=== PATIENT | male | born 1955 | race Caucasian/White ===

== ENCOUNTER → 2020-01-11 10:18 | Outpatient (BNVA) | payer MEDICAID, SELFPAY | PROVIDERS: Visit Provider Family Medicine | DX: I48.91 Unspecified atrial fibrillation (principal); F31.9 Bipolar disorder, unspecified; F31.62 Bipolar disorder, current episode mixed, moderate; I10 Essential (primary) hypertension; K21.9 Gastro-esophageal reflux disease without esophagitis | CPT/HCPCS: 80053; 80061; 80178; 83721; 85025 ==

== ENCOUNTER → 2020-04-21 11:00 | Outpatient (BNVA) | payer MEDICAID, SELFPAY | PROVIDERS: Visit Provider Family Medicine | DX: F31.9 Bipolar disorder, unspecified (principal); I48.91 Unspecified atrial fibrillation; I25.10 Atherosclerotic heart disease of native coronary artery without angina pectoris; E78.5 Hyperlipidemia, unspecified; I10 Essential (primary) hypertension; K21.9 Gastro-esophageal reflux disease without esophagitis | CPT/HCPCS: 80053; 80061; 80164; 80178 ==

== ENCOUNTER → 2020-08-13 11:00 | Outpatient (BNVA) | payer MEDICARE, MEDICAID, SELFPAY | PROVIDERS: Visit Provider Family Medicine | DX: F31.9 Bipolar disorder, unspecified (principal); I48.91 Unspecified atrial fibrillation; E78.2 Mixed hyperlipidemia; I10 Essential (primary) hypertension; Z23 Encounter for immunization | CPT/HCPCS: 80053; 80061; 83721; 85025 ==

== ENCOUNTER → 2020-10-14 11:36 | Outpatient (BNVA) | payer SELFPAY | PROVIDERS: Visit Provider Family Medicine | DX: F31.9 Bipolar disorder, unspecified (principal); I48.91 Unspecified atrial fibrillation | CPT/HCPCS: 80164; 80178 ==

== ENCOUNTER 2020-11-24 11:30 | Inpatient (IN) | payer MEDICARE, MEDICAID, SELFPAY ==
[2020-11-24] VITALS (27 sets, daily range): BP systolic 150–211; BP diastolic 88–152; PULSE 63–108; RESP 11–23; TEMP 36.5–36.6; O2SAT 95–99; BMI 26.6
--- NOTE | 2020-11-24 11:48 | CT_ITS ---
WS: [id number] CT HEAD NONCONTRAST HISTORY: Symptoms of Acute Stroke TECHNIQUE: Contiguous axial imaging performed through the brain in 2.5 mm imaging. Bone and soft tiss ue windows. Sagittal and coronal reformats reviewed. All CT scans at [facility] use at le ast one of these dose optimization techniques: automated exposure control; mA and/or kV adjustment pe r patient size (includes targeted exams where dose is matched to clinical indication); or iterative r econstruction. DLP: 862.82 mGy.cm COMPARISON: 04/27/2019 No acute intracranial hemorrhage, midline shift or mass effect. Area of decreased attenuation centered in the LEFT caudate head and along the anterior LEFT internal capsule. Additional low-attenuation in the periventricular white matter from chronic ischemic disease . Ventricles: Normal size with no hydrocephalus. Paranasal sinuses: As visualized are clear. Mastoid air cells: Well pneumatized. Calvarium and scalp: Skull is intact with no soft tissue edema or swelling. Increased soft tissue RIGHT external auditory canal. CT/CT head wo con* [id number] IMPRESSION: 1. No acute intracranial hemorrhage or edema. 2. 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 3. Mild chronic microvascular ischemic disease. Notified Onel Scott MD at 11/24/2020 12:14 PM.
--- NOTE | 2020-11-24 11:48 | ECG_ITS ---
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 Measurements Intervals [place] Rate: 58 P: [place]: QRS: 101 QRSD: 88 T: 26 QT: 422 QTc: 417 Interpretive Statements ATRIAL FIBRILLATION WITH SLOW VENTRICULAR RESPONSE RIGHT AXIS DEVIATION [QRS AXIS > 100] POSSIBLE RIGHT VENTRICULAR CONDUCTION DELAY [RSR (QR) IN V1/V2] Compared to ECG 04/27/2019 10:15:50 No significant changes Electronically Signed On 11-24-2020 18:44:08 RESPIRATORY THERAPY MANAGER by Nicki Teresa M.D. [email or web address]
--- NOTE | 2020-11-24 11:48 | XRR_ITS ---
PROCEDURE INFORMATION: Exam: XR Chest, 1 View Exam date and time: 11/24/2020 12:49 PM Age: 65 years old Clinical indication: Other: Stroke TECHNIQUE: Imaging protocol: XR of the chest Views: 1 view. COMPARISON: DX Chest 1 view [id number] 04/27/2019 12:47 AM FINDINGS: Lungs: Unremarkable. No consolidation. Pleural space: Unremarkable. No pleural effusion. No pneumothorax. Heart/Mediastinum: Unremarkable. No cardiomegaly. Bones/joints: Unremarkable. XR/XR chest 1V portable [id number] IMPRESSION: No acute findings.
[2020-11-24 11:49] LABS: Glucose Point of Care 117 mg/dL (70-110)
--- NOTE | 2020-11-24 12:01 | CT_ITS ---
WS: [id number] CT CERVICAL SPINE HISTORY: stroke symptoms/ fall TECHNIQUE: Contiguous 2.5 mm axial imaging performed through the entire cervical spine. Sagittal and coronal reformats also performed. All CT scans at [facility] use at least one of these do se optimization techniques: automated exposure control; mA and/or kV adjustment per patient size (inc ludes targeted exams where dose is matched to clinical indication); or iterative reconstruction. DLP: 919.28 mGy.cm COMPARISON: None available. Moderate RIGHT convex curvature cervical spine. Advanced degenerative disc space narrowing and desicc ation at C6-7. Craniocervical junction is normal. Narrowing of the predental space is degenerative. T he odontoid process is intact. Complete ankylosis across the LEFT C3-4 facet joint and partial along the RIGHT. There is additional partial ankylosis across the RIGHT lateral C6 and C7 vertebral body pr edominantly due to an osteophyte. C2-C3: Mild narrowing of the LEFT foramen due to facet disease. C3-C4: LEFT facet joint arthritis. No stenosis. C4-C5: Mild LEFT foraminal narrowing due to facet joint arthritis. C5-C6: Osteophytic ridging and bilateral facet joint arthritis. Severe LEFT and mild RIGHT foraminal stenosis. C6-C7: Osteophytic ridging with facet joint arthritis. Moderate bilateral foraminal stenosis. Osteoph ytes encroach into the foramen bilaterally. RIGHT C7-T1: Bilateral facet joint arthritis. Mild foraminal narrowing. Lung apices are clear. Bilateral small cervical chain lymph nodes. CT/CT cervical spin wo con* [id number] IMPRESSION: 1. Moderate to severe multilevel advanced degenerative changes throughout the cervical spine. 2. No fractures are identified. 3. Facet joint arthritis and foraminal narrowing severe on the LEFT at C5-6 an d moderate bilaterally at C6-7.
[2020-11-24 12:33] LABS: Basophils # 0.1 10^3/uL (0.0-0.1); Basophils % 0.5 %; Eosinophils # 0.2 10^3/uL (0.0-0.8); Eosinophils % 1.4 %; Hematocrit 43.6 % (42.0-52.0); Hemoglobin 14.5 g/dL (11.7-16.6); Lymphocytes # 2.2 10^3/uL (0.8-4.8); Lymphocytes % 20.2 %; Mean Corpuscular HGB Conc 33.3 g/dL (30.0-36.0); Mean Corpuscular Hemoglobin 31.7 pg (28.0-34.0); Mean Corpuscular Volume 95.2 fL (80-94); Mean Platelet Volume 10.5 fL (7.4-10.4); Monocytes # 0.8 10^3/uL (0.2-0.9); Monocytes % 7.3 %; Neutrophils # 7.74 10^3/uL (1.8-7.7); Neutrophils % 70.1 %; Nucleated Red Blood Cells % 0 %; Platelet Count 288 10^3/cmm (130-400); Red Blood Count 4.58 10^6/uL (4.1-5.3)
--- NOTE | 2020-11-24 12:49 | CT_ITS ---
WS: [id number] CT ANGIOGRAM CEREBRAL AND CAROTID ARTERIES HISTORY: stroke symptoms TECHNIQUE: CT angiogram is performed of the carotid and cerebral arteries. During arterial injection imaging is obtained from the skull vertex to the aortic arch in 1.25 mm imaging. Coronal and sagittal reformats are submitted. Additional multi planar reformats of the carotid and cerebral arteries are submitted, MIP imaging also reviewed. NASCET criteria utilized. All CT scans at [facility] use at least one of these dose optimization techniques: automated exposure control; mA and/or kV ad justment per patient size (includes targeted exams where dose is matched to clinical indication); or iterative reconstruction. CONTRAST: Omnipaque 350; 95 mL IV. DLP: 2779.25 mGy.cm COMPARISON: None available. Carotid Angiogram: Right carotid: Common carotid artery: Arises normally from the innominate artery. No significant plaque or stenosis. Internal carotid artery: Mild intimal thickening and plaque. External carotid artery: Patent. Left carotid: Common carotid artery: Arises normally from the aorta. No significant plaque or stenosis. Internal carotid artery: Mild atherosclerosis with intimal thickening and plaque. External carotid artery: Patent. Right vertebral artery: Unremarkable. Left vertebral artery: Unremarkable. Arises normally from the subclavian artery. Subclavian arteries: No stenosis or significant abnormality. Upper thorax: Normal. Thyroid gland: Normal. Osseous structures: No osteoblastic or osteolytic disease. CEREBRAL ANGIOGRAM: Intracranial vertebral arteries: Normal with no significant atherosclerosis. Basilar artery: No significant stenosis or occlusion. No aneurysm. Intracranial Internal carotid arteries: Poor opacification of the intracranial carotid arteries. Ther e is calcified plaque and intimal thickening. There is at least moderate atherosclerotic plaque exten ding through the cavernous sinuses. Middle cerebral arteries: Normal. Anterior cerebral arteries and ACOM: Normal. Posterior cerebral arteries and PCOM's: Normal. Dural venous sinuses are normally enhancing. Mastoid air cells: Normal. Paranasal sinuses: Normal. Calvarium: Normal. CT/CT angio headneck* [id number] IMPRESSION: 1. Less than 50% stenosis extracranial carotid arteries. 2. Moderate diffuse calcified plaque through the intracranial carotid arteries but no high-grade stenosis or occlusion. 3. No aneurysm.
[2020-11-24 12:53] LABS: INR 1.29 (0.8-1.2)
[2020-11-24 12:54] LABS: Partial Thromboplastin Time 39.8 SECONDS (23.9-36.7)
[2020-11-24] MEDS: hyDRALAzine 20 mg/mL INJ 1 mL 10 MG IVP ×2 (12:56→16:55)
[2020-11-24 13:37] LABS: Alanine Aminotransferase 19 U/L (0-41); Albumin Level 4.4 g/dL (3.5-5.2); Alkaline Phosphatase 102 IU/L (40-130); Anion Gap 15.2 (5-19); Aspartate Amino Transferase 20 U/L (0-40); Blood Urea Nitrogen 20 mg/dL (8-23); Calcium 10.1 mg/dL (8.5-10.5); Carbon Dioxide 25 mmol/L (22-29); Chloride 104 mmol/L (98-107); Globulin 3.1 g/dL (1.3-4.6); Glomerular Filtration Rate 67.2 mL/min (90-130); Glucose 99 mg/dL (65-115); Osmolality Calculated 293 mOsm/kg (285-295); Potassium 4.2 mmol/L (3.5-5.1); Sodium 140 mmol/L (136-145); Total Bilirubin 1.3 mg/dL (0.15-1.2); Total Protein 7.5 g/dL (6.6-8.7)
[2020-11-24 13:38] LABS: Alcohol Level < 10 mg/dL (0-10)
[2020-11-24 14:03] LABS: Add Urine Microscopic? NO
[2020-11-24 14:07] LABS: Bilirubin Urine Neg (Negative); Blood Urine Neg (Negative); Glucose Urine UA Norm (Normal); Ketones Urine Negative (Negative); Leukocyte Esterase Urine Negative (Negative); Nitrate Urine Negative (Negative); Protein Urine Neg (Negative); Urine Appearance Clear (CLEAR); Urine Color Yellow (Yellow); Urobilinogen Urine Norm (Negative); pH Urine 7 (5-7)
[2020-11-24 14:13] LABS: Amphetamines Screen Urine Negative (Negative); Barbiturates Screen Urine Negative (Negative); Benzodiazepines Screen Urine Negative (Negative); Cocaine Screen Urine Negative (Negative); Opiate Screen Urine Negative (Negative); PCP Screen Urine Negative (Negative); THC Screen Urine Negative (Negative)
[2020-11-24] MEDS: iohexol 350 mg/mL 100 mL Btl IV (14:26)
--- NOTE | 2020-11-24 16:20 | W.ED.NEUROSD ---
HPI - Neuro Symptoms/Deficit General: Chief Complaint: Neuro Symptoms/Deficit Stated Complaint: Stroke?/confusion/ lt side numbness Time Seen by Provider: 11/24/20 11:42 History of Present Illness: HPI Narrative: The patient is a 65-year-old male with past medical history A. fib on Eliquis who comes to the ER 2 days after a fall where he hit his head very hard. Since then he has had a left-sided facial droop, slurring of speech, and left sided weakness. CT is negative for acute bleeding and shows no acute changes. He is still generally weak and unable to take care of himself properly for example he is unable to go to the restroom without 2 people assisting. Onset (ago): day(s) (2) Location: speech, left face and left arm History of same: No Severity: moderate Quality: weak Relieving factors: none Exacerbating factors: none On Anticoagulants: Yes Associated symptoms: Reports weakness; Deny chest pain, cough, fevers/chills, headache(s), nausea, seizures, short of breath or vomiting Review of Systems General: Reports: 10 or more systems reviewed and unremarkable except in HPI and below Const: Reports: fatigue and other (general weakness); Denies: fever(s) or chills Eyes: Denies: change in vision, blurry vision or eye redness ENMT: Denies: throat pain, swelling of lips/tongue, ear or mastoid pain or nasal congestion Card: Denies: chest pain Resp: Denies: dyspnea, productive cough or non-productive cough GI: Denies: nausea or vomiting : Denies: flank pain, urinary frequency or urinary urgency Musc: Denies: neck pain, back pain, extremity pain, joint pain, joint redness, limited range of motion or muscle weakness Skin/Breast: Denies: rash, pruritus, erythema, skin pain or skin tenderness Neuro: Reports: Slurred speech present and other (facial droop and ); Denies: headache(s) Psych: Denies: anxiety or depression Endo: Denies: polyuria All/Imm: Denies: urticaria, throat swelling or tongue swelling PFSH ED PFSH: Medical History (Updated 11/24/20 @ 17:44 by Don Steward MD) Bipolar 1 disorder GERD (gastroesophageal reflux disease) Hypertension Surgical History History of surgery on arm (~2016) Family History Other Hypertension Rheumatoid arthritis Social History Smoking and tobacco status: never smoked Alcohol intake: current Alcohol intake frequency: holidays/special occasions only Substance/Drug Use: never Lives independently: Yes Household members: none Marital status: Current gender identity: Male Physical Exam Const: COMMON NORMALS: no acute distress, average body habitus, patient oriented x3, no limitations, healthy appearing, alert and well nourished GENERAL APPEARANCE: cooperative, comfortable, well kempt and well developed ORIENTATION/CONSCIOUSNESS: Yes awake, Yes oriented to person, Yes oriented to place and Yes oriented to time HENMT: COMMON NORMALS: normocephalic, external ears normal and Normal external nose present HEAD & SCALP: normal to inspection and normocephalic NOSE: Normal external nose present EXTERNAL EAR: Yes external ears normal MOUTH: Normal oral and palatal mucosa present THROAT: posterior oropharynx normal Eye: COMMON NORMALS: Equal, round and reactive pupils present and EOMs intact bilaterally GENERAL EYE: appearance normal, both eyes and all related structures PUPIL: Yes Equal, round and reactive pupils present Neck/C-Spine: COMMON NORMALS: full ROM, no lymphadenopathy, no meningeal signs and no JVD GENERAL: Yes normal visual inspection Lymph: LYMPHATIC: no lymphadenopathy noted Chest: COMMONS NORMALS: normal inspection of the chest and normal palpation of entire chest wall Resp: COMMON NORMALS: normal respiratory effort, No retractions, No use of accessory muscles, clear to auscultation bilaterally and percussion normal EFFORT & INSPECTION: Yes able to speak in complete sentences AUSCULTATION: clear to auscultation bilaterally PERCUSSION: percussion normal Cardio: COMMON NORMALS: no JVD, regular rate, regular rhythm, S1 normal heart sound present, S2 normal heart sound present and Peripheral pulses 2+ throughout RATE: regular rate RHYTHM: regular rhythm HEART SOUNDS: S1 normal heart sound present and S2 normal heart sound present PERIPHERAL PULSES: Peripheral pulses 2+ throughout GI: COMMON NORMALS: Normal to inspection, nondistended, normoactive bowel sounds present, Soft to palpation, non-tender and no masses INSPECTION: Yes normal to inspection PALPATION: Yes Soft to palpation : COMMON NORMALS: Yes no CVA tenderness BLADDER/KIDNEY EXAM: Yes no CVA tenderness Back/Pelvis: COMMON NORMALS: no CVA tenderness, thoracic and lumbar spine normal to inspection, no thoracic nor lumbar tenderness and thoraco-lumbar ROM normal Extremity: COMMON NORMALS: normal to inspection, full ROM, capillary refill normal, no joint enlargement and no pedal edema GENERAL: Yes normal exam except as noted Neuro: COMMON NORMALS: patient oriented x3, CN's II-XII intact bilaterally, moves all extremities and no sensory deficits noted SENSORIUM/ORIENTATION: Yes alert, Yes oriented to person, Yes oriented to place and Yes oriented to time MENINGEAL SIGNS: Yes no meningeal signs SPEECH: Other neuro speech findings (slurring of speech) OTHER: Patient has left-sided facial droop sparing the upper part of the face. Also has power 4-4.5 out of 5 in the left upper extremity and same power rating for the left lower extremity. Right side is completely normal. Sensation intact bilaterally. He has some associated slurring of his speech. Psych: COMMON NORMALS: mental status grossly normal, Normal thought process present, cooperative, normal affect and speech normal APPEARANCE: Yes well kempt ATTITUDE: Yes calm SPEECH: Yes normal speech THOUGHT PROCESS: Normal thought process present Skin: COMMON NORMALS: no rashes or lesions noted GENERAL SKIN EXAM: no rashes or lesions noted Course Vital Signs: Vital signs: Vital Signs Temperature 97.9 F 11/24/20 11:36 Pulse Rate 69 11/24/20 19:30 Respiratory Rate 23 H 11/24/20 19:30 Blood Pressure 150/93 11/24/20 19:30 Pulse Oximetry 95 11/24/20 19:30 MDM - Neuro Symptoms/Deficit MDM Narrative: Medical decision making narrative: It is likely the patient felt 2 days ago and had a stroke at home as he has not lifted himself in the mirror and his home comfort advisor had to tell him his face was drooping and brought him to the hospital. CT is negative for any acute changes. Discussed with Dr. Xavier who recommended discharge however the patient is unable to take care of himself at home and needs 2 people to assist him even to the bathroom in the ER. We will admit him for observation and MRI for this reason. Dr. Steward accepts. Differential Diagnosis: Neuro Differential Diagnosis: Likely subarachnoid hemorrhage and transient cerebral ischemia Lab Data: Labs: Lab Results 11/24/20 11/24/20 11/24/20 Range/Units 11:45 12:21 12:21 WBC 11.0 H (4.0-10.0) 10^3/ uL RBC 4.58 (4.1-5.3) 10^6/u L Hgb 14.5 (11.7-16.6) g/dL Hct 43.6 (42.0-52.0) % MCV 95.2 H (80-94) fL MCH 31.7 (28.0-34.0) pg MCHC 33.3 (30.0-36.0) g/dL RDW 12.0 L (12.1-15.1) % Plt Count 288 (130-400) 10^3/c mm MPV 10.5 H (7.4-10.4) fL Neut % (Auto) 70.1 % Lymph % (Auto) 20.2 % [place] % (Auto) 7.3 % Eos % (Auto) 1.4 % Baso % (Auto) 0.5 % Neut # (Auto) 7.74 H (1.8-7.7) 10^3/u L Lymph # (Auto) 2.2 (0.8-4.8) 10^3/u L [place] # (Auto) 0.8 (0.2-0.9) 10^3/u L Eos # (Auto) 0.2 (0.0-0.8) 10^3/u L Baso # (Auto) 0.1 (0.0-0.1) 10^3/u L Nucleated RBC % (a uto) 0 % Nucleated RBCs # 0.0 /100WBC PT 16.60 H (12.1-14.9) SECO NDS INR 1.29 H (0.8-1.2) APTT 39.8 H (23.9-36.7) SECO NDS Sodium (136-145) mmol/L Potassium (3.5-5.1) mmol/L Chloride (98-107) mmol/L Carbon Dioxide (22-29) mmol/L Anion Gap (5-19) BUN (8-23) mg/dL Creatinine (0.7-1.2) mg/dL GFR Calculation (90-130) mL/min Glucose (65-115) mg/dL POC Glucose 117 H (70-110) mg/dL Calculated Osmolal ity (285-295) mOsm/k g Calcium (8.5-10.5) mg/dL Total Bilirubin (0.15-1.2) mg/dL AST (0-40) U/L ALT (0-41) U/L Alkaline Phosphata se (40-130) IU/L Total Protein (6.6-8.7) g/dL Albumin (3.5-5.2) g/dL Globulin (1.3-4.6) g/dL Urine Color (Yellow) Urine Appearance (CLEAR) Urine pH (5-7) Ur Specific Gravit y (1.005-1.030) Urine Protein (Negative) Urine Glucose (UA) (Normal) Urine Ketones (Negative) Urine Blood (Negative) Urine Nitrate (Negative) Urine Bilirubin (Negative) Urine Urobilinogen (Negative) mg/dL Ur Leukocyte [place] ase (Negative) Urine Opiates Scre en (Negative) ng/mL Ur Barbiturates Sc reen (Negative) ng/mL Valproic Acid (50-100) ug/mL Ur Phencyclidine S crn (Negative) ng/mL Ur Amphetamines Sc reen (Negative) ng/mL U Benzodiazepines Scrn (Negative) ng/mL [place] (0.6-1.2) mmol/L Urine Cocaine Scre en (Negative) ng/mL U Marijuana (THC) Screen (Negative) ng/mL Ethyl Alcohol (0-10) mg/dL 11/24/20 11/24/20 11/24/20 Range/Units 12:21 13:58 13:58 WBC (4.0-10.0) 10^3/ uL RBC (4.1-5.3) 10^6/u L Hgb (11.7-16.6) g/dL Hct (42.0-52.0) % MCV (80-94) fL MCH (28.0-34.0) pg MCHC (30.0-36.0) g/dL RDW (12.1-15.1) % Plt Count (130-400) 10^3/c mm MPV (7.4-10.4) fL Neut % (Auto) % Lymph % (Auto) % [place] % (Auto) % Eos % (Auto) % Baso % (Auto) % Neut # (Auto) (1.8-7.7) 10^3/u L Lymph # (Auto) (0.8-4.8) 10^3/u L [place] # (Auto) (0.2-0.9) 10^3/u L Eos # (Auto) (0.0-0.8) 10^3/u L Baso # (Auto) (0.0-0.1) 10^3/u L Nucleated RBC % (a uto) % Nucleated RBCs # /100WBC PT (12.1-14.9) SECO NDS INR (0.8-1.2) APTT (23.9-36.7) SECO NDS Sodium 140 (136-145) mmol/L Potassium 4.2 (3.5-5.1) mmol/L Chloride 104 (98-107) mmol/L Carbon Dioxide 25 (22-29) mmol/L Anion Gap 15.2 (5-19) BUN 20 (8-23) mg/dL Creatinine 1.1 (0.7-1.2) mg/dL GFR Calculation 67.2 L (90-130) mL/min Glucose 99 (65-115) mg/dL POC Glucose (70-110) mg/dL Calculated Osmolal ity 293 (285-295) mOsm/k g Calcium 10.1 (8.5-10.5) mg/dL Total Bilirubin 1.3 H (0.15-1.2) mg/dL AST 20 (0-40) U/L ALT 19 (0-41) U/L Alkaline Phosphata se 102 (40-130) IU/L Total Protein 7.5 (6.6-8.7) g/dL Albumin 4.4 (3.5-5.2) g/dL Globulin 3.1 (1.3-4.6) g/dL Urine Color Yellow (Yellow) Urine Appearance Clear (CLEAR) Urine pH 7 (5-7) Ur Specific Gravit y 1.000 L (1.005-1.030) Urine Protein Neg (Negative) Urine Glucose (UA) Norm (Normal) Urine Ketones Negative (Negative) Urine Blood Neg (Negative) Urine Nitrate Negative (Negative) Urine Bilirubin Neg (Negative) Urine Urobilinogen Norm (Negative) mg/dL Ur Leukocyte [place] Negative (Negative) Urine Opiates Scre en Negative (Negative) ng/mL Ur Barbiturates Sc reen Negative (Negative) ng/mL Valproic Acid (50-100) ug/mL Ur Phencyclidine S crn Negative (Negative) ng/mL Ur Amphetamines Sc reen Negative (Negative) ng/mL U Benzodiazepines Scrn Negative (Negative) ng/mL [place] (0.6-1.2) mmol/L Urine Cocaine Scre en Negative (Negative) ng/mL U Marijuana (THC) Screen Negative (Negative) ng/mL Ethyl Alcohol < 10 (0-10) mg/dL 11/24/20 Range/Units 15:38 WBC (4.0-10.0) 10^3/ uL RBC (4.1-5.3) 10^6/u L Hgb (11.7-16.6) g/dL Hct (42.0-52.0) % MCV (80-94) fL MCH (28.0-34.0) pg MCHC (30.0-36.0) g/dL RDW (12.1-15.1) % Plt Count (130-400) 10^3/c mm MPV (7.4-10.4) fL Neut % (Auto) % Lymph % (Auto) % [place] % (Auto) % Eos % (Auto) % Baso % (Auto) % Neut # (Auto) (1.8-7.7) 10^3/u L Lymph # (Auto) (0.8-4.8) 10^3/u L [place] # (Auto) (0.2-0.9) 10^3/u L Eos # (Auto) (0.0-0.8) 10^3/u L Baso # (Auto) (0.0-0.1) 10^3/u L Nucleated RBC % (a uto) % Nucleated RBCs # /100WBC PT (12.1-14.9) SECO NDS INR (0.8-1.2) APTT (23.9-36.7) SECO NDS Sodium (136-145) mmol/L Potassium (3.5-5.1) mmol/L Chloride (98-107) mmol/L Carbon Dioxide (22-29) mmol/L Anion Gap (5-19) BUN (8-23) mg/dL Creatinine (0.7-1.2) mg/dL GFR Calculation (90-130) mL/min Glucose (65-115) mg/dL POC Glucose (70-110) mg/dL Calculated Osmolal ity (285-295) mOsm/k g Calcium (8.5-10.5) mg/dL Total Bilirubin (0.15-1.2) mg/dL AST (0-40) U/L ALT (0-41) U/L Alkaline Phosphata se (40-130) IU/L Total Protein (6.6-8.7) g/dL Albumin (3.5-5.2) g/dL Globulin (1.3-4.6) g/dL Urine Color (Yellow) Urine Appearance (CLEAR) Urine pH (5-7) Ur Specific Gravit y (1.005-1.030) Urine Protein (Negative) Urine Glucose (UA) (Normal) Urine Ketones (Negative) Urine Blood (Negative) Urine Nitrate (Negative) Urine Bilirubin (Negative) Urine Urobilinogen (Negative) mg/dL Ur Leukocyte [place] a[place] (Negative) Urine Opiates Scre en (Negative) ng/mL Ur Barbiturates Sc reen (Negative) ng/mL Valproic Acid 2.8 L (50-100) ug/mL Ur Phencyclidine S crn (Negative) ng/mL Ur Amphetamines Sc reen (Negative) ng/mL U Benzodiazepines Scrn (Negative) ng/mL [place] 0.3 L (0.6-1.2) mmol/L Urine Cocaine Scre en (Negative) ng/mL U Marijuana (THC) Screen (Negative) ng/mL Ethyl Alcohol (0-10) mg/dL Discharge Plan Discharge Admit Provider: Don Steward Coding Level of Care Code ED [employer] for Chg Fwd Exam Comprehensive
[2020-11-24 16:55] LABS: Lithium 0.3 mmol/L (0.6-1.2); Valproic Acid Level 2.8 ug/mL (50-100)
[2020-11-24] MEDS: ondansetron 2 mg/ML SDV 2 mL 4 MG IVP (17:18)
--- NOTE | 2020-11-24 17:24 | PC.NURSE ---
patient became diaphoretic and nauseated, emd informed and orders received
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
--- NOTE | 2020-11-24 22:31 | PC.NURSE ---
REPORTED BP TO NURSE!
[2020-11-24 22:46] LABS: Estmated Average Glucose 108; Hemoglobin A1C 5.4 % (4.0-6.0)
[2020-11-25] VITALS (8 sets, daily range): BP systolic 125–180; BP diastolic 78–120; PULSE 50–99; RESP 16–18; TEMP 36.7–37.1; O2SAT 94–97
[2020-11-25] MEDS: quetiapine 100 mg Tablet 200 MG PO ×2 (00:03→20:56)
[2020-11-25] MEDS: lithium carbonate 300 mg Capsule PO ×2 (00:04→20:57)
[2020-11-25] MEDS: clopidogrel 75 mg Tablet PO ×2 (00:04→22:20)
[2020-11-25] MEDS: atorvastatin 40 mg Tablet PO ×2 (00:04→20:56)
[2020-11-25] MEDS: metoprolol tartrate 50 mg Tablet PO ×2 (00:06→08:30)
[2020-11-25] MEDS: apixaban 5 mg Tablet PO ×3 (00:07→20:57)
--- NOTE | 2020-11-25 00:27 | PC.NURSE ---
PT THROWING UP. SIT PT UP IN BED AND REPORTED TO NURSE. CHECKED PT VITALS BP STILL HIGH NURSE NOTED!
--- NOTE | 2020-11-25 00:34 | ECG_ITS ---
[facility] Test Date: 2020-11-25 Pat Name: Kirby Whitehead Department: Room: 255 Gender: Male Supervisor Beam Department: andrea CELAYA: 1955 Requested By: Ofe Najera Order Number: [id number] Cathleen MD: Tara Chavarria M.D. Measurements Intervals Marlette Rate: 81 P: CO: QRS: 98 QRSD: 97 T: 8 QT: 393 QTc: 458 Interpretive Statements ATRIAL FIBRILLATION BORDERLINE RIGHT AXIS DEVIATION [QRS AXIS > 90] INCOMPLETE RIGHT BUNDLE BRANCH BLOCK [90+ ms QRS DURATION, TERMINAL R IN V1/V2, 40+ ms S IN I/aVL/V4/V5/V6] NONSPECIFIC T-WAVE ABNORMALITY Compared to ECG 11/24/2020 12:20:08 Incomplete right bundle-branch block now present T-wave abnormality now present Electronically Signed On 11-25-2020 20:12:21 JERKER by Tara Chavarria M.D. [id number]
[2020-11-25 00:53] LABS: Glucose Point of Care 133 mg/dL (70-110)
[2020-11-25 01:17] LABS: Troponin T (5th) Once 13 ng/L (0-15)
[2020-11-25 05:08] LABS: Basophils % 0.2 %; Hematocrit 44.4 % (42.0-52.0); Hemoglobin 14.7 g/dL (11.7-16.6); Lymphocytes # 1.4 10^3/uL (0.8-4.8); Lymphocytes % 11.3 %; Mean Corpuscular HGB Conc 33.1 g/dL (30.0-36.0); Mean Corpuscular Hemoglobin 31.3 pg (28.0-34.0); Mean Corpuscular Volume 94.5 fL (80-94); Mean Platelet Volume 10.7 fL (7.4-10.4); Monocytes # 0.7 10^3/uL (0.2-0.9); Monocytes % 5.1 %; Neutrophils % 83.1 %; Nucleated Red Blood Cells % 0 %; Platelet Count 323 10^3/cmm (130-400); Red Cell Distribution Width 11.9 % (12.1-15.1); White Blood Count 12.6 10^3/uL (4.0-10.0)
[2020-11-25 05:35] LABS: Alanine Aminotransferase 18 U/L (0-41); Albumin Level 4.1 g/dL (3.5-5.2); Alkaline Phosphatase 99 IU/L (40-130); Anion Gap 16.3 (5-19); Aspartate Amino Transferase 16 U/L (0-40); Blood Urea Nitrogen 20 mg/dL (8-23); Calcium 9.9 mg/dL (8.5-10.5); Carbon Dioxide 24 mmol/L (22-29); Chloride 104 mmol/L (98-107); Globulin 3.4 g/dL (1.3-4.6); Glomerular Filtration Rate 67.2 mL/min (90-130); Glucose 133 mg/dL (65-115); Osmolality Calculated 295 mOsm/kg (285-295); Potassium 4.3 mmol/L (3.5-5.1); Sodium 140 mmol/L (136-145); Total Bilirubin 1.3 mg/dL (0.15-1.2); Total Protein 7.5 g/dL (6.6-8.7)
[2020-11-25 06:29] LABS: Glucose Point of Care 115 mg/dL (70-110)
--- NOTE | 2020-11-25 09:08 | PC.CHAP ---
Pastoral Care Encounter/Spiritual Assessment Type of Contact [] Declined environmental lawyer visit [] Patient/Family/Request visit [] Outpatient visit [] Follow-up visit [] Physician referral [] Code/Alert [x] Routine visit [] Staff referral [] Actively dying [] Patient sleeping [] Family support [] [] Out of room [] Palliative care [] [] Receiving care in room [] Pre-surgical visit [] Trauma [] Long length of stay [] ICU visit [] Other: Relational/Emotional Strength [x] Patient feels connected with others/family/visitors/staff [] Distress [] Loneliness/isolation [] Abandonment Spirituality of Patient [x] Person of Tish [] Attends Mormon of their Tish [] Believes in Prayer [x] Reads Bible or Muslim materials [] There are Spiritual issues to be addressed Nitrocellulose Operator Interventions [x] Prayer [x] Active listening [] Non-anxious presence [] Spiritual/emotional support [] Crisis/trauma care [] Spiritual counseling [] Bereavement support [] Provided bereavement packet [] Provided Bible/devotional materials [] Provided toy/stuffed animal, coloring book to patient or family member [] Provided Communion [] Anointing/[place] [] Salvation [x] Completed spiritual assessment [] Other: Impact on Illness or Injury [] Angry [] Fearful [] Anxious [] Often cries [] Exhaustion [] Unable to work [] Unable to attend anabaptist [] Unable to walk/stand [] Unable to read [] Unable to drive [] Unable to eat/drink [] Unable to sleep [] Unable to be with family [] Patient intubated [] Other: Summary patient confuses Time spent with patient 10 min
[2020-11-25] MEDS: lactated ringers 1,000 ML 250 ML IV (10:42)
[2020-11-25 10:50] LABS: Glucose Point of Care 113 mg/dL (70-110)
--- NOTE | 2020-11-25 11:13 | CT_ITS ---
WS: [id number] CT HEAD NONCONTRAST HISTORY: CVA with some worsening of symptoms TECHNIQUE: Contiguous axial imaging performed through the brain in 2.5 mm imaging. Bone and soft tiss ue windows. Sagittal and coronal reformats reviewed. All CT scans at [facility] use at le ast one of these dose optimization techniques: automated exposure control; mA and/or kV adjustment pe r patient size (includes targeted exams where dose is matched to clinical indication); or iterative r econstruction. DLP: 864.98 mGy.cm COMPARISON: 11/24/2020 No acute intracranial hemorrhage, midline shift or mass effect. Low-attenuation in the region of the LEFT caudate head with extension into the internal capsule. No s ignificant change or progression since the prior study. This may be a subacute infarct. Additional mi ld chronic microvascular ischemic disease. No additional areas of sulcal effacement. Ventricles: Normal size with no hydrocephalus. Paranasal sinuses: As visualized are clear. Mastoid air cells: Well pneumatized. Calvarium and scalp: Skull is intact with no soft tissue edema or swelling. CT/CT head wo con* [id number] IMPRESSION: 1. No acute intracranial hemorrhage. 2. Age-indeterminate but not acute infarct LEFT caudate head and internal caps ule. No progression or change since 11/24/2020. No new area of sulcal effacement .
--- NOTE | 2020-11-25 11:14 | PM.PN ---
Subjective Subjective: Interval history: He was noted to have some worsening symptoms overnight. This morning his left arm has been weaker compared to yesterday. Lower extremities appear to be about the same. Speech is somewhat slowed, to him feels more sluggish than yesterday. No headache. Denies other complaints or new developments. Vitals/I&O/Wt Last Vital Signs Temp 98.1 F 11/25/20 07:27 Pulse 99 11/25/20 09:55 Resp 16 11/25/20 07:27 BP 156/78 11/25/20 07:27 Pulse Ox 94 11/25/20 09:55 11/24/20 11/25/20 11/25/20 22:59 06:59 14:59 Output Total 200 / 200 Balance -200 / -200 Weight last 48 hrs Weight 102.058 kg Physical Exam Const: COMMON NORMALS: no acute distress, patient oriented x3 and alert GENERAL APPEARANCE: cooperative ORIENTATION/CONSCIOUSNESS: Yes awake OTHER: Mildly slowed, mildly slurred speech, slightly slowed response. To me speech sounds the same as yesterday, but subjectively to him feels a little bit worse. Left-sided facial droop persists. HENMT: COMMON NORMALS: oropharynx normal Neck/C-Spine: COMMON NORMALS: no meningeal signs and no JVD Resp: COMMON NORMALS: normal respiratory effort and clear to auscultation bilaterally AUSCULTATION: clear to auscultation bilaterally Cardio: COMMON NORMALS: no JVD, regular rhythm, S1 normal heart sound present, S2 normal heart sound present and No murmurs present (Cardio) RHYTHM: regular rhythm HEART SOUNDS: S1 normal heart sound present and S2 normal heart sound present GI: COMMON NORMALS: Normal to inspection, nondistended, normoactive bowel sounds present, Soft to palpation and non-tender PALPATION: Yes Soft to palpation Extremity: COMMON NORMALS: no joint enlargement and no pedal edema Neuro: COMMON NORMALS: patient oriented x3 SENSORIUM/ORIENTATION: Yes alert MENINGEAL SIGNS: Yes no meningeal signs SPEECH: abnormal speech (Mildly slowed, minimally dysarthric speech) SENSORY EXAM: Yes extremities (Normal. No sensory levels.) and Normal double simultaneous stimulation for sensation MOTOR EXAM: Other motor observations present (Strength 3/5 LUE, worse compared to yesterday.) OTHER: Visual holland full to confrontation. Skin: COMMON NORMALS: no rashes or lesions noted GENERAL SKIN EXAM: no rashes or lesions noted Data : 11/25/20 04:35 11/25/20 04:35 A&P Assessment and plan (1) CVA (cerebral vascular accident): Today symptoms are somewhat worse, with worse weakness noted in the morning in the left upper extremity compared to yesterday. Persistent left-sided facial droop. Persistent somewhat slowed speech, with mild dysarthria which subjectively did not feel somewhat worse than yesterday. His blood pressure is noted to be better this morning, and as low as 130 systolic. Given rather elevated prior values, it may be that he is not used to blood pressures in this range. We will give him a small bolus of fluid. Given some worsening symptoms will assess also CT of the head. Discussed with him concern with regards to his weakness and living alone. We discussed concern that it may not be safe at this time for him to return home until after he has had some rehabilitation. He states will think about it. Additional PT and OT evaluation pending the above. Speech therapy evaluation. For now continue n.p.o. until assessed by speech. I was just updated also that he is feeling already somewhat better, and also clarifies that he does get quite lethargic and somnolent for at least 12 hours after taking his lithium and Seroquel at home as well, and sometimes it takes him a while to come back to feeling more like his usual self. Continue Plavix. Continue Eliquis for A. fib. Continue statin. career services representative follow-up with regards to disposition planning depending on his performance with therapy. Status: Acute (2) Hypertension: Will reduce metoprolol somewhat to 25 mg. Monitor blood pressures, heart rates. Cardiac diet. Discussed with him in detail close monitoring of blood pressures at home to exclude severe episodic hypertension possibly contributing to CVA. Status: Acute Qualifiers: Hypertension type: essential hypertension Qualified Code(s): I10 - Essential (primary) hypertension (3) Hyperglycemia: A1c 5.4. Status: Acute (4) Atrial fibrillation: Continue Eliquis, metoprolol. His lithium level is low, and so I am not 100% certain whether he may be missing some doses of medications, although when asked he does state that he has been taking his Eliquis and took it in the morning. Status: Acute Qualifiers: Atrial fibrillation type: unspecified Qualified Code(s): I48.91 - Unspecified atrial fibrillation (5) Bipolar 1 disorder: Continue lithium. Seroquel. Status: Acute Attestations Medical Necessity Statement*: Continue admission for cyst management of CVA with fluctuating symptoms, optimization of risk factors, assessment of functional capacity, disposition planning and arrangements. Coding Level of Care Code Acute Scheme Technician for [facility] Diagnoses CVA (cerebral vascular accident) I63.9 Hypertension I10 Hypertension type: essential hypertension Hyperglycemia R73.9 Atrial fibrillation I48.91 Atrial fibrillation type: unspecified Bipolar 1 disorder F31.9
--- NOTE | 2020-11-25 11:37 | PC.OT ---
OT EVALUATION ATTEMPTED. PATIENT BEING TAKEN TO IMAGING. WILL ATTEMPT AGAIN IN P.M.
--- NOTE | 2020-11-25 16:47 | PC.NURSE ---
Notified nurse of blood pressure, 177/104
[2020-11-25] MEDS: metoprolol tartrate 50 mg Tablet 25 MG PO (20:57)
[2020-11-25 21:25] LABS: Glucose Point of Care 140 mg/dL (70-110)
--- NOTE | 2020-11-25 22:26 | USCV_ITS ---
Kirby Whitehead Age: 65 Gender: M : 1955 Exam Date: 11/25/2020 05:42 Ordering Phys: Don Steward MD Technologist: Alysia Mcginnis Exam Location: [facility] [place] Indication: CVA BP: 180 / 120 HR: 75 Rhythm: Atrial fibrillation Technical Quality: Very technically difficult study MEASUREMENTS (Male / Female) Normal Values 2D ECHO LV Diastolic Diameter PLAX 3.9 cm 4.2 - 5.9 / 3.9 - 5.3 cm LV Systolic Diameter PLAX 2.6 cm LV Chamber Size 4.1 cm IVS Diastolic Thickness 1.4 cm 0.6 - 1.0 / 0.6 - 0.9 cm IVS Systolic Thickness 1.9 cm LVPW Diastolic Thickness 1.2 cm 0.6 - 1.0 / 0.6 - 0.9 cm LVPW Systolic Thickness 1.9 cm RV Chamber Size 3.7 cm LVOT Diameter 2.1 cm LV Ejection Fraction 2D Teich 62.5 % LV Ejection Fraction MOD 2C 45.5 % LV Ejection Fraction 2C AL 46.7 % LA Diameter 4.1 cm LA Width 4.5 cm LA Height 4.2 cm RA Width 3.5 cm RA Height 4.8 cm Aorta at Sinotubular Diameter 3.9 cm M-MODE LV Diastolic Diameter MM 3.6 cm 4.2 - 5.9 / 3.9 - 5.3 cm LV Systolic Diameter MM 2.4 cm LV Ejection Fraction MM Teich 61.8 % IVS Diastolic Thickness MM 1.1 cm 0.6 - 1.0 / 0.6 - 0.9 cm IVS Systolic Thickness MM 1.6 cm LVPW Diastolic Thickness MM 2.0 cm 0.6 - 1.0 / 0.6 - 0.9 cm LVPW Systolic Thickness MM 1.7 cm RV Diastolic Diameter MM 1.6 cm Aortic Annulus Diameter 4.2 cm LA Ao Ratio MM 1.1 MV E Point Septal Separation 0.6 cm DOPPLER AV Peak Velocity 113.0 cm/s LVOT Peak Velocity 88.0 cm/s AV Area Cont Eq vti 3.2 cm squared AV Area Cont Eq pk 2.6 cm squared MV Area PHT 4.2 cm squared MV E' Velocity 50.5 cm/s Mitral E to MV E' Ratio 8.1 Mitral E to LV E' Lateral Ratio 6.9 Mitral E to LV E' Septal Ratio 9.7 TR Peak Velocity 90.9 cm/s TR Peak Gradient 3.3 mmHg TR Mean Velocity 69.5 cm/s TR Mean Gradient 2.3 mmHg TR Velocity Time Integral 25.7 cm TV Peak E Velocity 77.0 cm/s Right Atrial Pressure 3.0 mmHg Pulmonary Artery Systolic Pressu 6.3 mmHg PV Peak Velocity 62.7 cm/s RV Acceleration Time 0.1 s RV Ejection Time 0.3 s RV AcT/ET 0.3 FINDINGS Left Ventricle Normal left ventricular size and systolic function with no regional wall motion abnormalities. LVEF is 55 to 60%. Diastolic function is indeterminate because of atrial fibrillation. Right Ventricle The right ventricle is normal in size and function. Right Atrium The right atrium is normal in size. Left Atrium The left atrium is normal in size. Mitral Valve Structurally normal mitral valve without significant stenosis or prolapse. There is trace mitral regurgitation. Aortic Valve Structurally normal aortic valve without significant sclerosis or stenosis. There is no aortic regurgitation. Tricuspid Valve Structurally normal tricuspid valve without significant stenosis or regurgitation. Insufficient TR jet to calculate RVSP. Pulmonic Valve Structurally normal pulmonic valve without significant stenosis. There is no pulmonic regurgitation. Pericardium Normal pericardium without effusion. Aorta Mildly dilated ascending aorta CONCLUSIONS This is technically limited study. LV systolic function is normal with EF of 55 to 60%. Diastolic function is indeterminate because of atrial fibrillation. Trace mitral regurgitation is seen. No significant valvular abnormality seen. Compared to prior study from 04/27/2019, no significant changes are seen. Gary Casey MD (Electronically Signed) Final Date: 25 November 2020 09:21 S
[2020-11-26] VITALS (8 sets, daily range): BP systolic 148–177; BP diastolic 90–104; PULSE 64–94; RESP 16–18; TEMP 36.4–37; O2SAT 92–97
[2020-11-26 06:22] LABS: Basophils # 0.1 10^3/uL (0.0-0.1); Basophils % 0.5 %; Eosinophils # 0.2 10^3/uL (0.0-0.8); Eosinophils % 1.8 %; Hematocrit 41.3 % (42.0-52.0); Hemoglobin 13.3 g/dL (11.7-16.6); Lymphocytes # 2.9 10^3/uL (0.8-4.8); Lymphocytes % 30.5 %; Mean Corpuscular HGB Conc 32.2 g/dL (30.0-36.0); Mean Corpuscular Volume 96.3 fL (80-94); Mean Platelet Volume 10.8 fL (7.4-10.4); Monocytes # 0.9 10^3/uL (0.2-0.9); Monocytes % 9.5 %; Neutrophils # 5.51 10^3/uL (1.8-7.7); Neutrophils % 57.4 %; Nucleated Red Blood Cells % 0 %; Platelet Count 255 10^3/cmm (130-400); Red Blood Count 4.29 10^6/uL (4.1-5.3); Red Cell Distribution Width 12.1 % (12.1-15.1); White Blood Count 9.6 10^3/uL (4.0-10.0)
[2020-11-26 06:52] LABS: Alanine Aminotransferase 16 U/L (0-41); Albumin Level 3.8 g/dL (3.5-5.2); Alkaline Phosphatase 88 IU/L (40-130); Anion Gap 12.9 (5-19); Aspartate Amino Transferase 16 U/L (0-40); Blood Urea Nitrogen 25 mg/dL (8-23); Calcium 9.5 mg/dL (8.5-10.5); Carbon Dioxide 26 mmol/L (22-29); Chloride 102 mmol/L (98-107); Globulin 2.8 g/dL (1.3-4.6); Glomerular Filtration Rate 55.4 mL/min (90-130); Glucose 105 mg/dL (65-115); Osmolality Calculated 289 mOsm/kg (285-295); Potassium 3.9 mmol/L (3.5-5.1); Sodium 137 mmol/L (136-145); Total Bilirubin 1.1 mg/dL (0.15-1.2); Total Protein 6.6 g/dL (6.6-8.7)
[2020-11-26] MEDS: apixaban 5 mg Tablet PO ×2 (07:54→21:33)
--- NOTE | 2020-11-26 08:52 | P.PN_ITS ---
Subjective Subjective: Interval history: This is a progress note from service date 11/25 as original note had disappeared. He was noted to have some worsening symptoms overnight. This morning his left arm has been weaker compared to yesterday. Lower extremities appear to be about the same. Speech is somewhat slowed, to him feels more sluggish than yesterday. No headache. Denies other complaints or new developments. Vitals/I&O/Wt Last Vital Signs Temp 97.6 F 11/26/20 07:34 Pulse 94 11/26/20 08:20 Resp 17 11/26/20 07:34 BP 165/92 11/26/20 07:34 Pulse Ox 95 11/26/20 08:20 11/25/20 11/26/20 11/26/20 22:59 06:59 14:59 Intake Total 120 / 120 Output Total 300 / 300 100 / 400 100 / 100 Balance -300 / 60 -100 / -40 Weight last 48 hrs Weight 102.058 kg Physical Exam Const: COMMON NORMALS: no acute distress, patient oriented x3 and alert GENERAL APPEARANCE: cooperative ORIENTATION/CONSCIOUSNESS: Yes awake OTHER: Mildly slowed, mildly slurred speech, slightly slowed response. To me speech sounds the same as yesterday, but subjectively to him feels a little bit worse. Left-sided facial droop persists. HENMT: COMMON NORMALS: oropharynx normal Neck/C-Spine: COMMON NORMALS: no meningeal signs and no JVD Resp: COMMON NORMALS: normal respiratory effort and clear to auscultation bilaterally AUSCULTATION: clear to auscultation bilaterally Cardio: COMMON NORMALS: no JVD, regular rhythm, S1 normal heart sound present, S2 normal heart sound present and No murmurs present (Cardio) RHYTHM: regular rhythm HEART SOUNDS: S1 normal heart sound present and S2 normal heart sound present GI: COMMON NORMALS: Normal to inspection, nondistended, normoactive bowel sounds present, Soft to palpation and non-tender PALPATION: Yes Soft to palpation Extremity: COMMON NORMALS: no joint enlargement and no pedal edema Neuro: COMMON NORMALS: patient oriented x3 SENSORIUM/ORIENTATION: Yes alert MENINGEAL SIGNS: Yes no meningeal signs COORDINATION/BALANCE: [id number] test normal SPEECH: abnormal speech (Mildly slowed, minimally dysarthric speech) SENSORY EXAM: Yes extremities (Normal. No sensory levels.) and Normal double simultaneous stimulation for sensation MOTOR EXAM: Other motor observations present (Strength 3/5 LUE, worse compared to yesterday.) COORDINATION: [id number] test normal OTHER: Visual holland full to confrontation. Skin: COMMON NORMALS: no rashes or lesions noted GENERAL SKIN EXAM: no rashes or lesions noted Data : 11/26/20 05:39 11/26/20 05:39 A&P Assessment and plan (1) CVA (cerebral vascular accident): Today symptoms are somewhat worse, with worse weakness noted in the morning in the left upper extremity compared to yesterday. Persistent left- sided facial droop. Persistent somewhat slowed speech, with mild dysarthria which subjectively did not feel somewhat worse than yesterday. His blood pressure is noted to be better this morning, and as low as 130 systolic. Given rather elevated prior values, it may be that he is not used to blood pressures in this range. We will give him a small bolus of fluid. Given some worsening symptoms will assess also CT of the head. Discussed with him concern with regards to his weakness and living alone. We discussed concern that it may not be safe at this time for him to return home until after he has had some rehabilitation. He states will think about it. Additional PT and OT evaluation pending the above. Speech therapy evaluation. For now continue n.p.o. until assessed by speech. I was just updated also that he is feeling already somewhat better, and also clarifies that he does get quite lethargic and somnolent for at least 12 hours after taking his lithium and Seroquel at home as well, and sometimes it takes him a while to come back to feeling more like his usual self. Continue Plavix. Continue Eliquis for A. fib. Continue statin. community services coordinator follow-up with regards to disposition planning depending on his performance with therapy. Status: Acute (2) Hypertension: Will reduce metoprolol somewhat to 25 mg. Monitor blood pressures, heart rates. Cardiac diet. Discussed with him in detail close monitoring of blood pressures at home to exclude severe episodic hypertension possibly contributing to CVA. Status: Acute Qualifiers: Hypertension type: essential hypertension Qualified Code(s): I10 - Essential (primary) hypertension (3) Hyperglycemia: A1c 5.4. Status: Acute (4) Atrial fibrillation: Continue Eliquis, metoprolol. His lithium level is low, and so I am not 100% certain whether he may be missing some doses of medications, although when asked he does state that he has been taking his Eliquis and took it in the morning. Status: Acute Qualifiers: Atrial fibrillation type: unspecified Qualified Code(s): I48.91 - Unspecified atrial fibrillation (5) Bipolar 1 disorder: Continue lithium. Seroquel. Status: Acute Attestations Medical Necessity Statement*: Continue admission for assessment and management of stroke. Coding Level of Care Code Acute Accounting Recruiter for [facility] Fwd Diagnoses CVA (cerebral vascular accident) I63.9 Hypertension I10 Hypertension type: essential hypertension Hyperglycemia R73.9 Atrial fibrillation I48.91 Atrial fibrillation type: unspecified Bipolar 1 disorder F31.9
--- NOTE | 2020-11-26 09:24 | PC.NURSE ---
BLOOD PRESSURE MEDICATION HELD THIS AM PER DR. PLUMMER.
--- NOTE | 2020-11-26 12:32 | P.PN_ITS ---
Subjective Subjective: Interval history: 11/26/20 He still a bit better. Feels like his speech is little bit better today. He is also a bit stronger in left arm. Vitals/I&O/Wt Last Vital Signs Temp 97.9 F 11/26/20 11:54 Pulse 74 11/26/20 11:54 Resp 17 11/26/20 11:54 BP 167/96 11/26/20 11:54 Pulse Ox 94 11/26/20 11:54 11/25/20 11/26/20 11/26/20 22:59 06:59 14:59 Intake Total 480 / 480 Output Total 300 / 300 100 / 400 400 / 400 Balance -300 / 60 -100 / -40 80 / 80 Physical Exam Const: COMMON NORMALS: no acute distress, patient oriented x3 and alert GENERAL APPEARANCE: cooperative ORIENTATION/CONSCIOUSNESS: Yes awake OTHER: Less slowed, minimally slurred speech. Left-sided facial droop persists better. HENMT: COMMON NORMALS: oropharynx normal Neck/C-Spine: COMMON NORMALS: no meningeal signs and no JVD Resp: COMMON NORMALS: normal respiratory effort and clear to auscultation bilaterally AUSCULTATION: clear to auscultation bilaterally Cardio: COMMON NORMALS: no JVD, regular rhythm, S1 normal heart sound present, S2 normal heart sound present and No murmurs present (Cardio) RHYTHM: regular rhythm HEART SOUNDS: S1 normal heart sound present and S2 normal heart sound present GI: COMMON NORMALS: Normal to inspection, nondistended, normoactive bowel sounds present, Soft to palpation and non-tender PALPATION: Yes Soft to palpation Extremity: COMMON NORMALS: no joint enlargement and no pedal edema Neuro: COMMON NORMALS: patient oriented x3 and moves all extremities SENSORIUM/ORIENTATION: Yes alert MENINGEAL SIGNS: Yes no meningeal signs COORDINATION/BALANCE: [id number] test normal SPEECH: abnormal speech (Mildly slowed, minimally dysarthric speech) SENSORY EXAM: Yes extremities (Normal. No sensory levels.) and Normal double simultaneous stimulation for sensation MOTOR EXAM: Other motor observations present (Strength 3+/5 LUE, better compared to yesterday.) COORDINATION: [id number] test normal OT HER: Visual holland full to confrontation. Skin: COMMON NORMALS: no rashes or lesions noted GENERAL SKIN EXAM: no rashes or lesions noted Data : 11/26/20 05:39 11/26/20 05:39 A&P Assessment and plan (1) CVA (cerebral vascular accident): Symptoms slightly better today. Left upper extremity is little bit stronger. Little bit less facial droop. He appears to be attempting to work well with physical therapy, Occupational Therapy. Overall with functional impairment, not very good safety awareness, would benefit from additional rehabilitation and long-term should have good prognosis. CT of the head repeated yesterday without any bleeding or obvious progression of CVA. S. He may have had some fluctuation of symptoms with changes in blood pressure, we have kept it on a little bit higher side today, but will resume his medication this evening. Discussed with him long-term goal of better blood pressure management, if possible maintain blood pressure at least below 130/80. Mechanical soft diet. Continue Plavix. Continue Eliquis for A. fib. Continue statin. information services consultant follow-up with regards to disposition planning depending on his performance with therapy. Status: Acute (2) Hypertension: Will reduce metoprolol somewhat to 25 mg. Monitor blood pressures, heart rates. Cardiac diet. Discussed with him in detail close monitoring of blood pressures at home to exclude severe episodic hypertension possibly contributing to CVA. Status: Acute Qualifiers: Hypertension type: essential hypertension Qualified Code(s): I10 - Essential (primary) hypertension (3) Hyperglycemia: A1c 5.4. Status: Acute (4) Atrial fibrillation: Continue Eliquis, metoprolol. His lithium level is low, and so I am not 100% certain whether he may be missing some doses of medications, although when asked he does state that he has been taking his Eliquis and took it in the morning of admission. Status: Acute Qualifiers: Atrial fibrillation type: unspecified Qualified Code(s): I48.91 - Unspecified atrial fibrillation (5) Bipolar 1 disorder: Continue lithium. Seroquel. Status: Acute Attestations Medical Necessity Statement*: Continue admission for assessment and management of CVA with fluctuating symptoms, optimization of blood pressure control. Disposition planning and arrangements. Coding Level of Care Code Acute Communications Scientist for [facility] Diagnoses CVA (cerebral vascular accident) I63.9 Hypertension I10 Hypertension type: essential hypertension Hyperglycemia R73.9 Atrial fibrillation I48.91 Atrial fibrillation type: unspecified Bipolar 1 disorder F31.9
[2020-11-26] MEDS: lithium carbonate 300 mg Capsule PO (21:33)
[2020-11-26] MEDS: quetiapine 100 mg Tablet 200 MG PO (21:33)
[2020-11-26] MEDS: atorvastatin 40 mg Tablet PO (21:33)
[2020-11-26] MEDS: clopidogrel 75 mg Tablet PO (23:34)
[2020-11-27] VITALS (11 sets, daily range): BP systolic 161–218; BP diastolic 91–119; PULSE 63–83; RESP 18; TEMP 36.2–37.1; O2SAT 94–98
[2020-11-27 05:45] LABS: Basophils # 0.1 10^3/uL (0.0-0.1); Basophils % 0.6 %; Eosinophils # 0.2 10^3/uL (0.0-0.8); Eosinophils % 2.3 %; Hematocrit 41.8 % (42.0-52.0); Hemoglobin 13.8 g/dL (11.7-16.6); Lymphocytes # 2.7 10^3/uL (0.8-4.8); Mean Corpuscular Hemoglobin 31.3 pg (28.0-34.0); Mean Corpuscular Volume 94.8 fL (80-94); Mean Platelet Volume 10.5 fL (7.4-10.4); Monocytes # 0.9 10^3/uL (0.2-0.9); Monocytes % 9.5 %; Neutrophils # 5.16 10^3/uL (1.8-7.7); Neutrophils % 57.4 %; Nucleated Red Blood Cells % 0 %; Platelet Count 238 10^3/cmm (130-400); Red Blood Count 4.41 10^6/uL (4.1-5.3); Red Cell Distribution Width 11.9 % (12.1-15.1)
[2020-11-27 06:21] LABS: Alanine Aminotransferase 16 U/L (0-41); Albumin Level 3.8 g/dL (3.5-5.2); Alkaline Phosphatase 91 IU/L (40-130); Anion Gap 13.5 (5-19); Aspartate Amino Transferase 15 U/L (0-40); Blood Urea Nitrogen 21 mg/dL (8-23); Calcium 9.5 mg/dL (8.5-10.5); Carbon Dioxide 26 mmol/L (22-29); Chloride 106 mmol/L (98-107); Globulin 2.9 g/dL (1.3-4.6); Glucose 104 mg/dL (65-115); Osmolality Calculated 297 mOsm/kg (285-295); Potassium 3.5 mmol/L (3.5-5.1); Sodium 142 mmol/L (136-145); Total Bilirubin 0.9 mg/dL (0.15-1.2); Total Protein 6.7 g/dL (6.6-8.7)
[2020-11-27] MEDS: metoprolol tartrate 50 mg Tablet 25 MG PO ×2 (09:01→18:39)
[2020-11-27] MEDS: apixaban 5 mg Tablet PO ×2 (09:01→18:39)
--- NOTE | 2020-11-27 10:21 | PC.SOCIAL ---
*IMM Update* Gave pt IMM. Understood. Gave him copy of page 2. Signed, dated, timed and placed in chart.
[2020-11-27] MEDS: amlodipine 5 mg Tablet PO (10:32)
--- NOTE | 2020-11-27 19:48 | PM.PN ---
Subjective Subjective: Interval history: Today he feels he is improving. His left arm is doing better. She is working with physical therapy. Denies new symptoms. Vitals/I&O/Wt Last Vital Signs Temp 97.8 F 11/27/20 15:44 Pulse 72 11/27/20 15:44 Resp 18 11/27/20 15:44 BP 164/106 11/27/20 15:44 Pulse Ox 97 11/27/20 15:44 11/27/20 11/27/20 11/27/20 06:59 14:59 22:59 Intake Total 480 / 480 240 / 720 Output Total 500 / 1200 150 / 150 420 / 570 Balance -500 / -480 330 / 330 -180 / 150 Physical Exam Const: COMMON NORMALS: no acute distress, patient oriented x3 and alert GENERAL APPEARANCE: cooperative ORIENTATION/CONSCIOUSNESS: Yes awake OTHER: Standing up at a walker with physical therapy. Left-sided facial droop persists with slight improvement. HENMT: COMMON NORMALS: oropharynx normal Neck/C-Spine: COMMON NORMALS: no meningeal signs and no JVD Resp: COMMON NORMALS: normal respiratory effort and clear to auscultation bilaterally AUSCULTATION: clear to auscultation bilaterally Cardio: COMMON NORMALS: no JVD, regular rhythm, S1 normal heart sound present, S2 normal heart sound present and No murmurs present (Cardio) RHYTHM: regular rhythm HEART SOUNDS: S1 normal heart sound present and S2 normal heart sound present GI: COMMON NORMALS: Normal to inspection, nondistended, normoactive bowel sounds present, Soft to palpation and non-tender PALPATION: Yes Soft to palpation Extremity: COMMON NORMALS: no joint enlargement and no pedal edema Neuro: COMMON NORMALS: patient oriented x3 and moves all extremities SENSORIUM/ORIENTATION: Yes alert MENINGEAL SIGNS: Yes no meningeal signs SPEECH: abnormal speech (Mildly slowed, minimally dysarthric speech with improvement) SENSORY EXAM: Yes extremities (Normal. No sensory levels.) and Normal double simultaneous stimulation for sensation MOTOR EXAM: Other motor observations present (Strength 3+/5 LUE, better compared to yesterday.) Skin: COMMON NORMALS: no rashes or lesions noted GENERAL SKIN EXAM: no rashes or lesions noted Data : 11/27/20 05:06 11/27/20 05:06 A&P Assessment and plan (1) CVA (cerebral vascular accident): Symptoms with some gradual improvement. He is working with physical therapy. Blood pressure today very high at 173/105, as high as 218/119 this morning. Requires additional optimization. Added amlodipine on discussion with him and he had been resumed on metoprolol. Mechanical soft diet. Continue Plavix. Continue Eliquis for A. fib. Continue statin. Pending transfer to rehabilitation which she should be able to do tomorrow barring any additional changes in his condition. Status: Acute (2) Hypertension: Metoprolol has been resumed. Today add amlodipine. Monitor. Cardiac diet. Discussed with him in detail close monitoring of blood pressures at home to exclude severe episodic hypertension possibly contributing to CVA. Status: Acute Qualifiers: Hypertension type: essential hypertension Qualified Code(s): I10 - Essential (primary) hypertension (3) Hyperglycemia: A1c 5.4. Status: Acute (4) Atrial fibrillation: Continue Eliquis, metoprolol. His lithium level is low, and so I am not 100% certain whether he may be missing some doses of medications, although when asked he does state that he has been taking his Eliquis and took it in the morning of admission. Status: Acute Qualifiers: Atrial fibrillation type: unspecified Qualified Code(s): I48.91 - Unspecified atrial fibrillation (5) Bipolar 1 disorder: Continue lithium. Seroquel. Status: Acute Attestations Medical Necessity Statement*: Continue admission for assessment management of CVA, optimization of control of poorly controlled hypertension. Disposition arrangements. Coding Level of Care Code Acute Security Architect for [facility] Diagnoses CVA (cerebral vascular accident) I63.9 Hypertension I10 Hypertension type: essential hypertension Hyperglycemia R73.9 Atrial fibrillation I48.91 Atrial fibrillation type: unspecified Bipolar 1 disorder F31.9
[2020-11-27] MEDS: quetiapine 100 mg Tablet 200 MG PO (20:42)
[2020-11-27] MEDS: clopidogrel 75 mg Tablet PO (20:42)
[2020-11-27] MEDS: atorvastatin 40 mg Tablet PO (20:42)
[2020-11-27] MEDS: lithium carbonate 300 mg Capsule PO (20:42)
[2020-11-28] VITALS (7 sets, daily range): BP systolic 137–162; BP diastolic 85–99; PULSE 62–82; RESP 16–18; TEMP 36.2–36.9; O2SAT 94–97
--- NOTE | 2020-11-28 05:28 | PC.NURSE ---
SHIFT SUMMARY Has rested well. Has some left sided weakness but not very evident with moving of extremities. Left repairer finished metal and leg movement sl weaker than right but is able to hold both up without any drift. Does have some left facial droop and speech with slurring. Is easily understood. Has denied pain or discomfort. monitor and storage bin tender showing A-fib with CVR
[2020-11-28] MEDS: amlodipine 5 mg Tablet PO (08:30)
[2020-11-28] MEDS: metoprolol tartrate 50 mg Tablet 25 MG PO (08:30)
[2020-11-28] MEDS: apixaban 5 mg Tablet PO (08:32)
--- NOTE | 2020-11-28 10:53 | PM.DCS ---
Discharge Providers Date of Admission: 11/24/20 17:02 Date of Discharge: November 28, 2020 Attending Provider at Admission: Don Steward Attending Provider at Discharge: Don Steward Diagnoses at Discharge Discharge Diagnosis (1) CVA (cerebral vascular accident): Status: Acute (2) Hypertension: Status: Acute Qualifiers: Hypertension type: essential hypertension Qualified Code(s): I10 - Essential (primary) hypertension (3) Hyperglycemia: Status: Acute (4) Atrial fibrillation: Status: Acute Qualifiers: Atrial fibrillation type: unspecified Qualified Code(s): I48.91 - Unspecified atrial fibrillation (5) Bipolar 1 disorder: Status: Acute Reason for Visit Reason for Visit: Stroke?/confusion/ lt side numbness Hospital Course Hospital Course Very pleasant 65-year-old gentleman with history of bipolar disorder, GERD, HTN was admitted for assessment due to left-sided weakness, left-sided facial droop outside of acute stroke management window. He is overall reported some generalized feeling of slowness/sluggishness within the last several months requiring adjustment of his lithium and Seroquel doses. The left-sided weakness and facial droop symptoms, however, have been new. [place] level in ER has been low. He has history of chronic atrial fibrillation, but is on anticoagulation with Eliquis. CT of the head showed subacute to chronic left caudate head infarct with extension into the anterior limb of the internal capsule. No hemorrhage was noted. Mild chronic microvascular ischemic disease. He was admitted for additional assessment treatment. CTA of head and neck was obtained, showing less than 50% stenosis of extracranial carotid arteries. Moderate diffuse calcified plaque through the internal carotid arteries but no high-grade stenosis or occlusion. Due to a fall prior to admission CT C-spine was assessed, with moderate to severe multilevel advanced degenerative changes throughout the cervical spine, no fractures. Noted facet joint arthrosis and foraminal narrowing, severe on the left C5-6, moderate bilaterally at C6-7. Blood pressure noted very elevated initially in ER 209/110 for which she received IV hydralazine. Initially his home metoprolol dose was restarted given he has been close to 48 hours or more from initial onset of suspected stroke, however, with noted some worsening in his symptoms with blood pressure approaching closer to goal range. Blood pressure medications were held, he received small bolus, with improvement in symptoms. He had no further progression of his symptoms. Repeat CT of the head without any bleeding. He was continued on aspirin, statin. He was assessed by speech therapy due to persistent left side facial droop, mild dysarthria, left upper extremity weakness was worse than lower. He was assessed by speech therapy with recommendation for mechanical soft diet. He did progressively better with physical and Occupational Therapy. As he would benefit from additional rehabilitation this was set up for him on discharge with his interest to pursue further therapy. His blood pressures eventually gradually improved, he was resumed on lower dose metoprolol 25 mg, subsequently with again noted elevated blood pressures was also started on amlodipine 5 mg. Please continue to monitor, adjust blood pressure medications depending on further progress. For now we will not increase metoprolol back to his previous dose of 50 mg twice daily as his heart rates are a little bit on the slower side in the 60s. Physical Exam Const: COMMON NORMALS: no acute distress, patient oriented x3 and alert GENERAL APPEARANCE: cooperative and comfortable ORIENTATION/CONSCIOUSNESS: Yes awake OTHER: He reports he is doing well. He is encouraged with how he has been doing with physical therapy. He is looking forward to more therapy at [facility]. Denies any new complaints or any discomfort or pain. Sitting up in chair. Calm and comfortable. HENMT: COMMON NORMALS: oropharynx normal Neck/C-Spine: COMMON NORMALS: no meningeal signs and no JVD Resp: COMMON NORMALS: normal respiratory effort and clear to auscultation bilaterally AUSCULTATION: clear to auscultation bilaterally Cardio: COMMON NORMALS: no JVD, regular rhythm, S1 normal heart sound present, S2 normal heart sound present and No murmurs present (Cardio) RHYTHM: regular rhythm HEART SOUNDS: S1 normal heart sound present and S2 normal heart sound present GI: COMMON NORMALS: Normal to inspection, nondistended, normoactive bowel sounds present, Soft to palpation and non-tender PALPATION: Yes Soft to palpation Extremity: COMMON NORMALS: no joint enlargement and no pedal edema Neuro: COMMON NORMALS: patient oriented x3 and moves all extremities SENSORIUM/ORIENTATION: Yes alert MENINGEAL SIGNS: Yes no meningeal signs SPEECH: abnormal speech (Mild dysarthria. Left facial droop.) SENSORY EXAM: Yes extremities (Normal. No sensory levels.) and Normal double simultaneous stimulation for sensation MOTOR EXAM: Other motor observations present (3+/5 left upper extremity power. 4/5 automation clerk.) Skin: COMMON NORMALS: no rashes or lesions noted GENERAL SKIN EXAM: no rashes or lesions noted Discharge Data Data Completed and Pending: Completed Studies During Hospitalization Category Date Time Status CT angio headneck * [id number] Stat Cat Scan 11/24/20 12:[address] cervical spin wo con* [id number] Stat Cat Scan 11/24/20 12:[address] head wo con* 7 0450 Routine Cat Scan 11/25/20 11:[address] head wo con* 7 0450 Stat Cat Scan 11/24/20 11:48 Completed XR chest 1V adwoa ble [id number] Stat Exams 11/24/20 11:48 Completed CV echo complete* [id number] Routine Ultrasound 11/25/20 22:26 Completed Vitals: Last Vital Signs Temp 97.1 F L 11/28/20 07:33 Pulse 62 11/28/20 07:33 Resp 18 11/28/20 07:33 BP 162/96 11/28/20 07:33 Pulse Ox 97 11/28/20 07:33 Discharge Plan Discharge Patient Disposition: Xfer SNF Condition: Stable Prescriptions: New atorvastatin 40 mg Tablet 40 mg PO BEDTIME Qty: 30 RF: 0 clopidogrel 75 mg Tablet 75 mg PO Q24H Qty: 30 RF: 0 amlodipine 5 mg Tablet 5 mg PO DAILY Qty: 30 RF: 0 Continued quetiapine 200 mg tablet 200 mg PO BEDTIME@1999 RF: 0 lithium carbonate 300 mg capsule 300 mg PO BEDTIME@1999 RF: 0 Eliquis 5 mg tablet 5 mg PO BID@ RF: 0 Changed metoprolol tartrate 50 mg tablet 25 mg PO BID@ Qty: 0 RF: 0 Discontinued Crestor 5 mg tablet 5 mg PO DAILY@1999 RF: 0 Discharge Orders: Discharge Order (Routine); Ordered 11/28/20 Ordered By: Don Steward Referrals: SNF, primary provider [Other] - 4-7 days (CVA, HTN) [facility] [place] [facility] [Provider Group] - 2 weeks (Bipolar disorder, lithium therapy) [facility] [Provider Group] - 1 week (CVA) [facility] [Outside] Abena Ramos MD [Physician] - (After DC from [place]) Discharge Diet: Cardiac and Soft Mechanical Discharge Activity: As per PT/OT instructions Patient Instructions: Amlodipine (By mouth), Apixaban (By mouth), Ischemic Stroke (GEN), Self Care Measures After a Stroke (DC), Hypertension (GEN) Activity Restrictions/Additional Instructions: Please monitor blood pressure 3 times daily, write down values to bring to your appointment. Please maintain aspiration precautions. Continue speech therapy. If you experience any new significant weakness, numbness, vision changes, trouble speaking, or any other concerning symptoms, or if your blood pressure is staying persistently high (above 190/100) despite taking her medications, please seek medical attention without delay. Discharge Attestations Time Spent in Discharge Care*: greater than 30 min Quality Metrics Clinical Quality Measures During this hospital stay, did patient experience: Stroke Contraindication to Antithrombotic: Antithrombotic prescribed Contraindication to Anticoagulation: Anticoagulation prescribed Contraindication to Statin: Statin prescribed Coding Level of Care Code Acute Patcher Bowling Ball for [employer] Fwd Diagnoses CVA (cerebral vascular accident) I63.9 Hypertension I10 Hypertension type: essential hypertension Hyperglycemia R73.9 Atrial fibrillation I48.91 Atrial fibrillation type: unspecified Bipolar 1 disorder F31.9
--- NOTE | 2020-11-28 11:57 | PC.NURSE ---
documentation review the following sets of documentation completed by the student nurse was reviewed by this nursing assistant 1111- I&O 1113- vital signs
--- NOTE | 2020-11-28 12:21 | PC.NURSE ---
nursing students got vitals
[2020-11-28 13:52] LABS: SARS Covid-2 Antigen Negative (Negative)
== END 2020-11-28 14:44 | disposition skilled nursing facility (03) | DRG 65 ==
LOC: ER 11:48 → MEDSURG 21:04
PROVIDERS: Internal Medicine; Admitting Provider Internal Medicine; Emergency Provider Family Medicine; Visit Provider Internal Medicine
DX: I63.9 Cerebral infarction, unspecified (principal); G81.94 Hemiplegia, unspecified affecting left nondominant side; R29.810 Facial weakness; R47.1 Dysarthria and anarthria; R29.702 NIHSS score 2; F31.9 Bipolar disorder, unspecified; I48.91 Unspecified atrial fibrillation; K21.9 Gastro-esophageal reflux disease without esophagitis; I10 Essential (primary) hypertension; Z91.81 History of falling; Z86.73 Personal history of transient ischemic attack (TIA), and cerebral infarction without residual deficits; R73.9 Hyperglycemia, unspecified; Z79.01 Long term (current) use of anticoagulants
CPT/HCPCS: 12345; 36415; 36416; 70450; 70496; 70498; 71045; 72125; 80053; 80164; 80178; 80306; 80307; 81003; 82962; 83036; 84484; 85025; 85610; 85730; 87426; 92507; 92523; 92526; 92610; 93005; 93306; 97110; 97116; 97162; 97167; 97530; 97535; 99283; J0360; J2405; Q9967

== ENCOUNTER → 2020-12-03 08:53 | Outpatient (BNVA) | payer MEDICARE, MEDICAID, SELFPAY | PROVIDERS: Referring Provider Internal Medicine; Visit Provider Nurse Practitioner | DX: I69.354 Hemiplegia and hemiparesis following cerebral infarction affecting left non-dominant side (principal); I10 Essential (primary) hypertension | CPT/HCPCS: 99204; 99205 ==

== ENCOUNTER 2020-12-10 08:30 | Outpatient (CLI) | payer MEDICARE, MEDICAID, SELFPAY ==
--- NOTE | 2020-12-10 08:45 | MR_ITS ---
WS: [id number] MRI BRAIN WITH AND WITHOUT CONTRAST HISTORY: I63.9 - Cerebral infarction, unspecified COMPARISON: 11/25/2020, 11/24/2020 TECHNIQUE: Multiplanar imaging performed through the brain with MultiHance 20 ml's IV. Diffusion-weighted images are positive for an acute infarct involving the RIGHT mederos radiata. No he morrhage. There is very mild gyral enhancement. There is an additional subacute infarct involving the LEFT caudate head with extension into the inter nal capsule. Diffusion sequences normal associated with this infarct but there is peripheral enhance ment but the ADC map has not returned to normal. Clivus and pituitary gland are normal. Visualized posterior fossa and brainstem are also normal. No enhancing masses. Dural venous sinuses are normal. Paranasal sinuses: Well aerated with no significant disease. Mastoid air cells: Normal. Calvarium and scalp: Normal. MR/MR head wo/w con [id number] IMPRESSION: 1. Small acute infarct involving the RIGHT mederos radiata. Infarct is less abiodun n 2 weeks. 2. Additional subacute infarct involving the LEFT caudate head with extension into the internal capsule is 3-4 weeks old. There is peripheral slightly nodul ar enhancement. Due to the enhancement not being serpiginous recommend MRI brai n follow-up with contrast in 6-8 weeks.
[2020-12-10] MEDS: gadobenate dimeglumine 20 mL vial IV (09:58)
== END 2020-12-10 08:31 | disposition home or self-care (01) ==
PROVIDERS: Visit Provider Nurse Practitioner
DX: I63.9 Cerebral infarction, unspecified (principal)
CPT/HCPCS: 70553; A9577

== ENCOUNTER → 2021-01-26 08:45 | Outpatient (BNVA) | payer MEDICARE, MEDICAID, SELFPAY | PROVIDERS: PCP Family Medicine; Referring Provider Family Medicine; Visit Provider Nurse Practitioner Family | DX: R32 Unspecified urinary incontinence (principal); Z12.5 Encounter for screening for malignant neoplasm of prostate | CPT/HCPCS: 81003; G0103 ==

== ENCOUNTER → 2021-01-28 16:06 | Outpatient (BNVA) | payer OTHER, SELFPAY | PROVIDERS: PCP Family Medicine; Visit Provider Psychiatry & Neurology Psychiatry | DX: F31.9 Bipolar disorder, unspecified (principal); Z79.899 Other long term (current) drug therapy | CPT/HCPCS: 80061; 83036 ==

== ENCOUNTER → 2021-03-03 14:20 | Outpatient (BNVA) | payer MEDICARE, MEDICAID, SELFPAY ==
[2021-01-30 09:18] VITALS: BP 145/87; BMI 27.6
== END ==
PROVIDERS: PCP Family Medicine; Visit Provider Urology
DX: N40.1 Benign prostatic hyperplasia with lower urinary tract symptoms (principal); R33.9 Retention of urine, unspecified; R35.8 Other polyuria; R32 Unspecified urinary incontinence
CPT/HCPCS: 81003

== ENCOUNTER → 2021-03-06 10:46 | Outpatient (BNVA) | payer MEDICARE, MEDICAID, SELFPAY ==
[2021-01-30 09:18] VITALS: BP 145/87; BMI 27.6
== END ==
PROVIDERS: PCP Family Medicine; Visit Provider Psychiatry & Neurology Psychiatry
DX: F31.9 Bipolar disorder, unspecified (principal); I63.9 Cerebral infarction, unspecified
CPT/HCPCS: 99214

== ENCOUNTER 2021-03-24 09:11 | Outpatient (CLI) | payer MEDICARE, MEDICAID, SELFPAY ==
[2021-01-30 09:18] VITALS: BP 145/87; BMI 27.6
[2021-03-24 10:19] LABS: Chol HDL Ratio 2.78 mg/dL (1.0-5.00); Cholesterol 114 mg/dL (0-200); HDL Cholesterol 41 mg/dL (60-100); LDL Cholesterol Calculated 52 mg/dL (50-129); LDL HDL Ratio 1.27 RATIO (0.00-3.22); Triglycerides 104 mg/dL (0-150)
== END 2021-03-24 09:12 | disposition home or self-care (01) ==
PROVIDERS: PCP Family Medicine; Visit Provider Specialist
DX: E78.2 Mixed hyperlipidemia (principal)
CPT/HCPCS: 36415; 80061

== ENCOUNTER → 2021-03-26 08:17 | Outpatient (BNVA) | payer MEDICARE, MEDICAID, SELFPAY ==
[2021-01-30 09:18] VITALS: BP 145/87; BMI 27.6
== END ==
PROVIDERS: PCP Family Medicine; Visit Provider Psychiatry & Neurology Psychiatry
DX: F31.9 Bipolar disorder, unspecified (principal); I63.9 Cerebral infarction, unspecified
CPT/HCPCS: 99214

== ENCOUNTER → 2021-04-08 12:23 | Outpatient (BNVA) | payer MEDICAID, SELFPAY ==
[2021-01-30 09:18] VITALS: BP 145/87; BMI 27.6
== END ==
PROVIDERS: PCP Family Medicine; Visit Provider Family Medicine
DX: E78.2 Mixed hyperlipidemia (principal); I10 Essential (primary) hypertension; K21.9 Gastro-esophageal reflux disease without esophagitis; F31.9 Bipolar disorder, unspecified
CPT/HCPCS: 80053; 80061; 80178; 84443; 85025

== ENCOUNTER → 2021-05-14 08:22 | Outpatient (BNVA) | payer MEDICARE, MEDICAID, SELFPAY ==
[2021-01-30 09:18] VITALS: BP 145/87; BMI 27.6
== END ==
PROVIDERS: PCP Family Medicine; Visit Provider Psychiatry & Neurology Psychiatry
DX: F31.9 Bipolar disorder, unspecified (principal); I63.9 Cerebral infarction, unspecified
CPT/HCPCS: 99214

== ENCOUNTER → 2021-06-24 13:07 | Outpatient (BNVA) | payer MEDICARE, SELFPAY ==
[2021-01-30 09:18] VITALS: BP 145/87; BMI 27.6
== END ==
PROVIDERS: PCP Family Medicine; Visit Provider Nurse Practitioner Family
DX: Z20.822 Contact with and (suspected) exposure to COVID-19 (principal)
CPT/HCPCS: 87635

== ENCOUNTER → 2021-07-09 12:45 | Outpatient (BNVA) | payer MEDICARE, MEDICAID, SELFPAY ==
[2021-01-30 09:18] VITALS: BP 145/87; BMI 27.6
== END ==
PROVIDERS: PCP Family Medicine; Visit Provider Psychiatry & Neurology Psychiatry
DX: F31.9 Bipolar disorder, unspecified (principal); I63.9 Cerebral infarction, unspecified
CPT/HCPCS: 99214

== ENCOUNTER → 2021-08-20 14:42 | Outpatient (BNVA) | payer MEDICARE, MEDICAID, SELFPAY ==
[2021-01-30 09:18] VITALS: BP 145/87; BMI 27.6
== END ==
PROVIDERS: PCP Family Medicine; Visit Provider Psychiatry & Neurology Psychiatry
DX: F31.9 Bipolar disorder, unspecified (principal); I63.9 Cerebral infarction, unspecified
CPT/HCPCS: 99214

== ENCOUNTER → 2021-10-08 14:53 | Outpatient (BNVA) | payer MEDICARE, MEDICAID, SELFPAY ==
[2021-01-30 09:18] VITALS: BP 145/87; BMI 27.6
== END ==
PROVIDERS: PCP Family Medicine; Visit Provider Psychiatry & Neurology Psychiatry
DX: F31.9 Bipolar disorder, unspecified (principal); I63.9 Cerebral infarction, unspecified
CPT/HCPCS: 99214

== ENCOUNTER → 2022-01-07 14:49 | Outpatient (BNVA) | payer MEDICARE, MEDICAID, SELFPAY ==
[2021-01-30 09:18] VITALS: BP 145/87; BMI 27.6
== END ==
PROVIDERS: PCP Family Medicine; Visit Provider Psychiatry & Neurology Psychiatry
DX: F31.9 Bipolar disorder, unspecified (principal); I63.9 Cerebral infarction, unspecified
CPT/HCPCS: 99214

== ENCOUNTER → 2022-01-21 09:21 | Outpatient (BNVA) | payer OTHER, SELFPAY ==
[2021-01-30 09:18] VITALS: BP 145/87; BMI 27.6
== END ==
PROVIDERS: PCP Family Medicine; Visit Provider Psychiatry & Neurology Psychiatry
DX: F31.9 Bipolar disorder, unspecified (principal); Z79.899 Other long term (current) drug therapy
CPT/HCPCS: 80061; 83036

== ENCOUNTER → 2022-02-05 12:24 | Outpatient (BNVA) | payer MEDICARE, MEDICAID, SELFPAY ==
[2022-01-22 13:32] VITALS: BP 136/92; BMI 26.8
== END ==
PROVIDERS: PCP Family Medicine; Visit Provider Family Medicine
DX: F31.9 Bipolar disorder, unspecified (principal); I10 Essential (primary) hypertension; E78.2 Mixed hyperlipidemia; I48.91 Unspecified atrial fibrillation
CPT/HCPCS: 80053; 80061; 84443; 85025

== ENCOUNTER → 2022-06-03 12:40 | Outpatient (BNVA) | payer MEDICARE, MEDICAID, SELFPAY ==
[2022-01-22 13:32] VITALS: BP 136/92; BMI 26.8
== END ==
PROVIDERS: PCP Family Medicine; Visit Provider Internal Medicine Cardiovascular Disease
DX: I48.91 Unspecified atrial fibrillation (principal); I25.10 Atherosclerotic heart disease of native coronary artery without angina pectoris; I10 Essential (primary) hypertension; Z86.73 Personal history of transient ischemic attack (TIA), and cerebral infarction without residual deficits
CPT/HCPCS: 99204

== ENCOUNTER 2022-10-28 22:27 | Emergency (ER) | payer MEDICARE, MEDICAID, SELFPAY ==
[2022-01-22 13:32] VITALS: BP 136/92; BMI 26.8
[2022-10-28 22:38] VITALS: BP 198/107; PULSE 119; RESP 18; TEMP 36.3; O2SAT 96; BMI 24.9
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
[2022-10-28 23:34] LABS: Basophils # 0.1 10^3/uL (0.0-0.1); Basophils % 0.6 %; Eosinophils # 0.2 10^3/uL (0.0-0.8); Eosinophils % 1.8 %; Hematocrit 45.8 % (42.0-52.0); Hemoglobin 15.1 g/dL (11.7-16.6); Lymphocytes # 2.2 10^3/uL (0.8-4.8); Lymphocytes % 21.2 %; Mean Corpuscular Hemoglobin 30.7 pg (28.0-34.0); Mean Corpuscular Volume 93.1 fl (80-94); Mean Platelet Volume 10.4 fL (7.4-10.4); Monocytes # 0.9 10^3/uL (0.2-0.9); Monocytes % 8.4 %; Neutrophils # 7.14 10^3/uL (1.8-7.7); Neutrophils % 67.7 %; Nucleated Red Blood Cells % 0 %; Platelet Count 253 10^3/cmm (130-400); Red Blood Count 4.92 10^6/uL (4.1-5.3); Red Cell Distribution Width 12.9 % (12.1-15.1); White Blood Count 10.6 10^3/uL (4.0-10.0)
[2022-10-28 23:54] LABS: Add Urine Microscopic? NO; Charge for UA Resulting for Rev
[2022-10-28 23:55] LABS: Bilirubin Urine Neg (Negative); Blood Urine Neg (Negative); Glucose Urine UA Norm (Normal); Ketones Urine Negative (Negative); Leukocyte Esterase Urine Negative (Negative); Nitrate Urine Negative (Negative); Protein Urine Neg (Negative); Specific Gravity, Urine 1.005 (1.005-1.030); Urine Appearance Clear (CLEAR); Urine Color Colorless (Yellow); Urobilinogen Urine Norm (Negative); pH Urine 7 (5-7)
[2022-10-29 00:01] LABS: Alanine Aminotransferase 24 U/L (0-41); Albumin Level 4.3 g/dL (3.5-5.2); Alkaline Phosphatase 115 U/L (40-130); Anion Gap 13.1 (5-19); Aspartate Amino Transferase 39 U/L (0-40); Blood Urea Nitrogen 25 mg/dL (8-23); Calcium 9.8 mg/dL (8.5-10.5); Carbon Dioxide 29 mmol/L (22-29); Chloride 104 mmol/L (98-107); Globulin 3.2 g/dL (1.3-4.6); Glomerular Filtration Rate 74.5 mL/min (90-130); Glucose 107 mg/dL (65-115); Osmolality Calculated 299 mOsm/kg (285-295); Potassium 4.1 mmol/L (3.5-5.1); Sodium 142 mmol/L (136-145); Total Bilirubin 0.6 mg/dL (0.15-1.2); Total Protein 7.5 g/dL (6.6-8.7)
--- NOTE | 2022-10-29 00:02 | ECG_ITS ---
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 [email or web address]
[2022-10-29 00:04] LABS: Amphetamines Screen Urine Negative (Negative); Barbiturates Screen Urine Negative (Negative); Benzodiazepines Screen Urine Negative (Negative); Cocaine Screen Urine Negative (Negative); Opiate Screen Urine Negative (Negative); PCP Screen Urine Negative (Negative); THC Screen Urine Negative (Negative)
[2022-10-29 00:05] LABS: Thyroid Stimulating Hormone 2.22 uIU/mL (0.27-4.20)
[2022-10-29 01:02] VITALS: BP 170/104; PULSE 60; RESP 16; O2SAT 98
== END 2022-10-29 01:02 | disposition home or self-care (01) ==
PROVIDERS: Nurse Practitioner Family; Emergency Provider Emergency Medicine
DX: Z04.1 Encounter for examination and observation following transport accident (principal); V49.9XXA Car occupant (driver) (passenger) injured in unspecified traffic accident, initial encounter; Z86.73 Personal history of transient ischemic attack (TIA), and cerebral infarction without residual deficits; I10 Essential (primary) hypertension
CPT/HCPCS: 70450; 80053; 80306; 81003; 84443; 85025; 93005; 99284

== ENCOUNTER 2022-10-29 20:16 | Emergency (ER) | payer MEDICARE, MEDICAID, SELFPAY ==
[2022-01-22 13:32] VITALS: BP 136/92; BMI 26.8
[2022-10-29 20:26] VITALS: BP 171/102; PULSE 75; RESP 20; TEMP 37.1; O2SAT 97; BMI 25.1
--- NOTE | 2022-10-29 21:02 | ED_ITS ---
HPI - General Adult General: Chief complaint: General Medical Stated complaint: frostbite Time Seen by Provider: 10/29/22 20:34 Source: patient History of Present Illness: 67-year-old male with a history of atrial fibrillation, coronary disease, GERD and hypertension as well as bipolar disorder. He presents to triage, walking off the street. He says that he has been battling frostbite all day . Evidently he has been walking around town. Someone brought him oyq-gfz-[id number]-eat [place] a bit earlier. Someone also given him some money, so he states that he might be able to make it home now. He complains of being extremely tired . This is his only complaint, and states I am okay if you do nothing . Onset (ago): hour(s) Radiation: other Quality: other Pain Consistency: other Exacerbating factors: other Associated symptoms: Reports malaise; Deny chest pain, cough, decreased appetite, dyspnea, fevers/chills, headache(s), nausea, short of breath or vomiting Review of Systems Const: Reports: malaise; Denies: fever(s) ENMT: Denies: throat pain Card: Denies: chest pain Resp: Denies: dyspnea GI: Denies: nausea or vomiting Neuro: Denies: headache(s) PFSH ED PFSH: Medical History Atrial fibrillation Bipolar 1 disorder BPH loc w urin obs/LUTS CVA (cerebral vascular accident) GERD (gastroesophageal reflux disease) Hypertension Polyuria Psychiatric care Psychiatric care Surgical History History of surgery on arm (~2016) S/P coronary angiogram Family History Other Hypertension Rheumatoid arthritis Social History Smoking and tobacco status: never smoked Second hand smoke exposure: No Alcohol intake: current Alcohol intake frequency: holidays/special occasions only Adopted: No Caregiver/support person: No Lives independently: Yes Household members: none Housing: Apartment Marital status: Number of children: 2 Number of grandchildren: 4 Highest education level completed: Bachelor's Degree 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, [employer]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 service: No Current occupational status: retired Pets and animals: No History of recent travel: No Leisure activites: other Leisure activities details: likes to run and exercise Sexually active: No Current gender identity: Male Tish/Jain: Uatsdin Special tish needs: No Agree to transfusion: Yes Financial difficulty paying for basics: Not Very Hard Physical Exam Const: COMMON NORMALS: no acute distress GENERAL APPEARANCE: cooperative; not ill appearing and not frail appearing HENMT: COMMON NORMALS: normocephalic, atraumatic and Normal external nose present HEAD & SCALP: normocephalic and atraumatic FACE & SINUS: normal facial exam and face symmetric NOSE: Normal external nose present Eye: COMMON NORMALS: Equal, round and reactive pupils present and EOMs intact bilaterally PUPIL: Yes Equal, round and reactive pupils present Neck/C-Spine: GENERAL: Yes trachea midline Chest: CHEST: Yes Symmetrical chest wall rise Resp: COMMON NORMALS: normal respiratory effort, No retractions, No use of accessory muscles and clear to auscultation bilaterally AUSCULTATION: clear to auscultation bilaterally Cardio: COMMON NORMALS: regular rate and regular rhythm RATE: regular rate RHYTHM: regular rhythm GI: COMMON NORMALS: Normal to inspection, nondistended, normoactive bowel sounds present Extremity: GENERAL: Yes edema (1+) Neuro: HODA COMA SCALE: document GCS findings Hoda coma scale eye opening: Spontaneous [place] coma scale verbal response: Orientated [place] coma scale motor response: Obey commands Hoda coma scale total score: 15 SENSORY EXAM: Yes extremities (intact) Psych: COMMON NORMALS: speech normal SPEECH: Yes normal speech Skin: COMMON NORMALS: no rashes or lesions noted GENERAL SKIN EXAM: no r ashes or lesions noted Course Vital Signs: Vital signs: Vital Signs Temperature 98.8 F 10/29/22 20:26 Pulse Rate 75 10/29/22 20:26 Respiratory Rate 20 H 10/29/22 20:26 Blood Pressure 171/102 10/29/22 20:26 Pulse Oximetry 97 10/29/22 20:26 Oxygen Delivery Me thod 10/29/22 20:26 [facility] - General Adult Medical Decision Making 67-year-old male with strange affect. He presents essentially with no complaints, except that he is tired. He had labs and imaging yesterday, which were not remarkable. His language is a bit tangential, so it is difficult to ascertain what exactly he wants. I believe he just wants to go home. He obtained some money from someone on the street, and believes he can afford a cab ride home. [place] [facility]. He will be allowed discharge Discharge Plan Discharge Patient Disposition: Home Clinical Impression: Fatigue Condition: Stable Prescriptions: No Action No Known Home Medications Discharge Orders: Discharge ED (Routine); Ordered 10/29/22 Ordered By: Joel Patel Discharge Diet: Advance as tolerated Discharge Activity: Increase activity as tolerated Patient Instructions: Fatigue (ED) Coding Level of Care Code ED Acoustic Sensor Operator for Andreag Fwd Exam Comprehensive
== END 2022-10-29 21:25 | disposition home or self-care (01) ==
PROVIDERS: Emergency Provider Emergency Medicine
DX: R53.83 Other fatigue (principal); Z86.73 Personal history of transient ischemic attack (TIA), and cerebral infarction without residual deficits; I10 Essential (primary) hypertension
CPT/HCPCS: 99281

== ENCOUNTER 2022-12-24 10:26 | Emergency (ER) | payer MEDICARE, MEDICAID, SELFPAY ==
[2022-01-22 13:32] VITALS: BP 136/92; BMI 26.8
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
[2022-12-24 10:38] VITALS: BP 178/115; PULSE 87; PULSE 90; RESP 14; RESP 18; TEMP 36.8; O2SAT 94; O2SAT 96; BMI 25.4
== END 2022-12-24 11:13 | disposition home or self-care (01) ==
PROVIDERS: Emergency Provider Physician Assistant
DX: S00.11XA Contusion of right eyelid and periocular area, initial encounter (principal); Y04.8XXA Assault by other bodily force, initial encounter; Z86.73 Personal history of transient ischemic attack (TIA), and cerebral infarction without residual deficits; I10 Essential (primary) hypertension
CPT/HCPCS: 99282

== ENCOUNTER → 2023-01-17 11:47 | Outpatient (BNVA) | payer MEDICARE, MEDICAID, SELFPAY ==
[2022-01-22 13:32] VITALS: BP 136/92; BMI 26.8
== END ==
PROVIDERS: Visit Provider Internal Medicine Cardiovascular Disease
DX: I48.91 Unspecified atrial fibrillation (principal); I25.10 Atherosclerotic heart disease of native coronary artery without angina pectoris; I10 Essential (primary) hypertension; E78.5 Hyperlipidemia, unspecified; R06.02 Shortness of breath; Z79.01 Long term (current) use of anticoagulants; E78.2 Mixed hyperlipidemia; Z86.73 Personal history of transient ischemic attack (TIA), and cerebral infarction without residual deficits
CPT/HCPCS: 99214

== ENCOUNTER 2023-01-19 12:06 | Outpatient (CLI) | payer MEDICARE, MEDICAID, SELFPAY ==
[2022-01-22 13:32] VITALS: BP 136/92; BMI 26.8
[2023-01-19 12:40] LABS: Basophils # 0.1 10^3/uL (0.0-0.1); Basophils % 0.6 %; Eosinophils # 0.2 10^3/uL (0.0-0.8); Eosinophils % 1.8 %; Hematocrit 45.2 % (42.0-52.0); Hemoglobin 15.4 g/dL (11.7-16.6); Lymphocytes # 2.2 10^3/uL (0.8-4.8); Lymphocytes % 25.9 %; Mean Corpuscular HGB Conc 34.1 g/dL (30.0-36.0); Mean Corpuscular Hemoglobin 31.1 pg (28.0-34.0); Mean Corpuscular Volume 91.3 fl (80-94); Mean Platelet Volume 10.2 fL (7.4-10.4); Monocytes # 0.6 10^3/uL (0.2-0.9); Monocytes % 7.4 %; Neutrophils # 5.47 10^3/uL (1.8-7.7); Neutrophils % 63.9 %; Nucleated Red Blood Cells % 0 %; Platelet Count 247 10^3/cmm (130-400); Red Blood Count 4.95 10^6/uL (4.1-5.3); Red Cell Distribution Width 13.2 % (12.1-15.1); White Blood Count 8.5 10^3/uL (4.0-10.0)
[2023-01-19 13:37] LABS: Alanine Aminotransferase 19 U/L (0-41); Albumin Level 4.4 g/dL (3.5-5.2); Alkaline Phosphatase 89 U/L (40-130); Anion Gap 15.3 (5-19); Aspartate Amino Transferase 28 U/L (0-40); Blood Urea Nitrogen 19 mg/dL (8-23); Calcium 9.8 mg/dL (8.5-10.5); Carbon Dioxide 27 mmol/L (22-29); Chloride 103 mmol/L (98-107); Chol HDL Ratio 5.88 mg/dL (1.0-5.00); Cholesterol 247 mg/dL (0-200); Globulin 2.6 g/dL (1.3-4.6); Glomerular Filtration Rate 112.5 mL/min (90-130); Glucose 94 mg/dL (65-115); HDL Cholesterol 42 mg/dL (60-100); LDL Cholesterol Calculated 166 mg/dL (50-129); LDL HDL Ratio 3.95 RATIO (0.00-3.22); Osmolality Calculated 294 mOsm/kg (285-295); Potassium 4.3 mmol/L (3.5-5.1); Sodium 141 mmol/L (136-145); Thyroid Stimulating Hormone 1.87 uIU/mL (0.27-4.20); Total Bilirubin 1.1 mg/dL (0.15-1.2); Triglycerides 196 mg/dL (0-150)
== END 2023-01-19 12:07 | disposition home or self-care (01) ==
PROVIDERS: Visit Provider Internal Medicine Cardiovascular Disease
DX: R06.02 Shortness of breath (principal); Z79.01 Long term (current) use of anticoagulants; E78.5 Hyperlipidemia, unspecified; I10 Essential (primary) hypertension; N18.9 Chronic kidney disease, unspecified
CPT/HCPCS: 36415; 80048; 80061; 80076; 84443; 85025

== ENCOUNTER 2023-01-30 11:46 | Emergency (ER) | payer MEDICARE, MEDICAID, SELFPAY ==
[2022-01-22 13:32] VITALS: BP 136/92; BMI 26.8
[2023-01-30 11:57] VITALS: BP 170/101; PULSE 93; TEMP 36.6; O2SAT 98; BMI 25.4
--- NOTE | 2023-01-30 14:15 | CTR_ITS ---
PROCEDURE INFORMATION: Exam: CT Cervical Spine Without Contrast Exam date and time: 01/30/2023 2:36 PM Age: 67 years old Clinical indication: Neck pain TECHNIQUE: Imaging protocol: Computed tomography of the cervical spine without contrast. Radiation optimization: All CT scans at this facility use at least one of these dose optimization techniques: automated exposure control; mA and/or kV adjustment per patient size (includes targeted exams where dose is matched to clinical indication); or iterative reconstruction. REPORTING DATA: Count of CT and Cardiac NM exams in prior 12 months: This patient has received 2 known CTs and 0 known cardiac nuclear medicine studies in the 12 months prior to the current study. COMPARISON: CT cervical spin wo con* [id number] 11/24/2020 12:28 PM RADIATION DOSE METRICS: Total DLP (mGy-cm): 245.9 FINDINGS: Bones/joints: No acute fracture. Normal alignment. No significant disc bulge or herniation. No severe spinal canal stenosis. No significant neural foraminal narrowing. Osteoarthritis is seen with intervertebral disc space narrowing and bone spurs C5-C6 and C6-C7 and C7 T1 Lungs: Lung apices are normal. Soft tissues: Unremarkable. CT/CT cervical spin wo con* [id number] IMPRESSION: No acute bone abnormality. Cervical spine osteoarthritis
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
[2023-01-30 14:56] VITALS: BP 144/105; PULSE 64; O2SAT 99
--- NOTE | 2023-02-09 13:52 | DCPLANNER ---
advanced manager called patient due to no primary care physician - patient stated that he will be seeing Dr. Howe at [facility] [place]
== END 2023-01-30 15:34 | disposition home or self-care (01) ==
PROVIDERS: Emergency Provider Nurse Practitioner
DX: T14.8XXA Other injury of unspecified body region, initial encounter (principal); I10 Essential (primary) hypertension; I25.10 Atherosclerotic heart disease of native coronary artery without angina pectoris; Z86.73 Personal history of transient ischemic attack (TIA), and cerebral infarction without residual deficits; Y04.8XXA Assault by other bodily force, initial encounter
CPT/HCPCS: 70450; 72125; 73130; 99284

== ENCOUNTER 2023-01-31 15:39 | Emergency (ER) | payer MEDICARE, MEDICAID, SELFPAY ==
[2022-01-22 13:32] VITALS: BP 136/92; BMI 26.8
[2023-01-31 15:53] VITALS: BP 182/97; PULSE 76; RESP 16; TEMP 36.8; O2SAT 97
[2023-01-31 17:25] VITALS: BP 165/94; PULSE 70; O2SAT 92
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
== END 2023-01-31 18:38 | disposition home or self-care (01) ==
PROVIDERS: Emergency Provider Emergency Medicine
DX: R51.9 Headache, unspecified (principal); Z86.73 Personal history of transient ischemic attack (TIA), and cerebral infarction without residual deficits; I10 Essential (primary) hypertension
CPT/HCPCS: 99282

== ENCOUNTER 2023-02-06 00:38 | Emergency (ER) | payer MEDICARE, MEDICAID, SELFPAY ==
[2022-01-22 13:32] VITALS: BP 136/92; BMI 26.8
[2023-02-06 00:45] VITALS: BP 184/136; PULSE 73; RESP 20; TEMP 36.9; O2SAT 98; BMI 29.6
[2023-02-06 03:19] VITALS: BP 161/116; PULSE 64; RESP 18; O2SAT 96
--- NOTE | 2023-02-06 03:26 | XRR_ITS ---
PROCEDURE INFORMATION: Exam: XR Chest Exam date and time: 02/06/2023 3:40 AM Age: 67 years old Clinical indication: Cough; Additional info: Cough chills TECHNIQUE: Imaging protocol: Radiologic exam of the chest. Views: 1 view. COMPARISON: CR XR chest 1V portable [id number] 11/24/2020 12:40 PM FINDINGS: Lungs: Unremarkable. No consolidation. Pleural spaces: Unremarkable. No pleural effusion. No pneumothorax. Heart/Mediastinum: Unremarkable. No cardiomegaly. Bones/joints: Unremarkable. XR/XR chest 1V portable [id number] IMPRESSION: No acute findings.
[2023-02-06 03:58] LABS: Influenza A by IFA negative (Negative); Influenza B by IFA negative (Negative)
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
[2023-02-06 04:29] LABS: SARS Covid-2 Antigen Negative (Negative)
[2023-02-06 04:41] VITALS: RESP 18
[2023-02-06] MEDS: oxyCODONE-APAP 5-325 mg Tablet 1 TAB PO (04:41)
[2023-02-06 04:43] VITALS: BP 154/102; PULSE 53; RESP 18; O2SAT 95
--- NOTE | 2023-02-16 10:00 | DCPLANNER ---
manager freelance called patient due to no primary care physician -patient stated that he sees Dr. Howe at [facility] [place].
== END 2023-02-06 04:52 | disposition home or self-care (01) ==
PROVIDERS: Emergency Provider Emergency Medicine; PCP Family Medicine
DX: R51.9 Headache, unspecified (principal); J06.9 Acute upper respiratory infection, unspecified; Z20.822 Contact with and (suspected) exposure to COVID-19; Z86.73 Personal history of transient ischemic attack (TIA), and cerebral infarction without residual deficits; I10 Essential (primary) hypertension
CPT/HCPCS: 71045; 87426; 87804; 99283

== ENCOUNTER 2023-06-08 16:13 | Inpatient (IN) | payer MEDICARE, MEDICAID, SELFPAY ==
[2022-01-22 13:32] VITALS: BP 136/92; BMI 26.8
--- NOTE | 2023-06-08 16:24 | PC.NURSE ---
Patient was brought in by [facility] on a 96 hour hold. 96 hour hold rights reviewed and copy given to patient. Patient verbalized understandings.
[2023-06-08 16:32] LABS: Basophils # 0.1 10^3/uL (0.0-0.1); Basophils % 0.8 %; Eosinophils # 0.2 10^3/uL (0.0-0.8); Eosinophils % 2.3 %; Hematocrit 46.5 % (42.0-52.0); Hemoglobin 15.5 g/dL (11.7-16.6); Lymphocytes # 3.3 10^3/uL (0.8-4.8); Lymphocytes % 35.9 %; Mean Corpuscular HGB Conc 33.3 g/dL (30.0-36.0); Mean Corpuscular Hemoglobin 30.9 pg (28.0-34.0); Mean Corpuscular Volume 92.6 fl (80-94); Mean Platelet Volume 10.3 fL (7.4-10.4); Monocytes # 0.7 10^3/uL (0.2-0.9); Monocytes % 7.4 %; Neutrophils % 53.4 %; Nucleated Red Blood Cells % 0 %; Platelet Count 282 10^3/cmm (130-400); Red Blood Count 5.02 10^6/uL (4.1-5.3); Red Cell Distribution Width 13.1 % (12.1-15.1); White Blood Count 9.2 10^3/uL (4.0-10.0)
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
[2023-06-08 16:59] LABS: Alanine Aminotransferase 11 U/L (0-41); Albumin Level 4.2 g/dL (3.5-5.2); Alkaline Phosphatase 85 U/L (40-130); Anion Gap 16.3 (5-19); Aspartate Amino Transferase 22 U/L (0-40); Blood Urea Nitrogen 15 mg/dL (8-23); Calcium 9.8 mg/dL (8.5-10.5); Carbon Dioxide 26 mmol/L (22-29); Chloride 102 mmol/L (98-107); Globulin 2.8 g/dL (1.3-4.6); Glomerular Filtration Rate 83.9 mL/min (90-130); Glucose 153 mg/dL (65-115); Osmolality Calculated 294 mOsm/kg (285-295); Potassium 4.3 mmol/L (3.5-5.1); Sodium 140 mmol/L (136-145); Total Bilirubin 1.6 mg/dL (0.15-1.2)
[2023-06-08 17:04] LABS: Acetaminophen < 5.0 ug/mL (10-30); Alcohol Level < 10 mg/dL (0-10); Salicylate < 0.3 mg/dL (3-10)
--- NOTE | 2023-06-08 17:08 | PC.NURSE ---
REFUSED VITALS AT THIS TIME
[2023-06-08 17:33] LABS: Thyroid Stimulating Hormone 1.85 uIU/mL (0.27-4.20)
[2023-06-08 17:58] LABS: Add Urine Microscopic? NO; Charge for UA Resulting for Rev
[2023-06-08 18:09] LABS: Amphetamines Screen Urine Negative (Negative); Barbiturates Screen Urine Negative (Negative); Benzodiazepines Screen Urine Negative (Negative); Cocaine Screen Urine Negative (Negative); Opiate Screen Urine Negative (Negative); PCP Screen Urine Negative (Negative); THC Screen Urine Negative (Negative)
[2023-06-08 18:10] LABS: Bilirubin Urine Neg (Negative); Blood Urine Neg (Negative); Glucose Urine UA Norm (Normal); Ketones Urine Negative (Negative); Leukocyte Esterase Urine Negative (Negative); Nitrate Urine Negative (Negative); Protein Urine Neg (Negative); Sulfosalicylic Acid Urine Negative (Negative); Urine Appearance Clear (CLEAR); Urine Color Yellow (Yellow); Urobilinogen Urine Norm (Negative); pH Urine 8 (5-7)
[2023-06-08 20:18] VITALS: BP 166/85; PULSE 48; RESP 17; TEMP 36.7; O2SAT 99
[2023-06-08 22:00] VITALS: BP 153/94; PULSE 62; RESP 18; TEMP 36.7; O2SAT 99
[2023-06-09 06:00] VITALS: BP 134/81; PULSE 50; RESP 16; O2SAT 98
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
[2023-06-09 14:00] VITALS: BP 141/88; PULSE 70; RESP 17; TEMP 36.6; O2SAT 96
[2023-06-09 20:57] VITALS: BP 132/70; PULSE 73; RESP 16; TEMP 36.7; O2SAT 98
[2023-06-10 06:00] VITALS: BP 142/95; PULSE 66; RESP 20; O2SAT 99
[2023-06-10 14:00] VITALS: BP 144/74; PULSE 51; RESP 16; TEMP 36.6; O2SAT 99
--- NOTE | 2023-06-10 15:27 | W.PM.NPUPNS ---
Subjective NPU Subjective: 68-year-old white male with a history of schizophrenia with a rule out of bipolar 1 disorder admitted directly from the local long term after displaying reportedly bizarre behaviors including drinking out of the toilet and defecating in his room in places other than his toilet. He had shown no evidence of any clearly bizarre behavior here as he had consumed food and drink the water provided to him. He had reportedly slept without any issue. He continued to minimize his struggles outside of this facility as he had denied having committed any of the charges brought up against him previously including burglary and disorderly conduct and assaultive behavior towards others. The patient had per previous records been hospitalized before. 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 He stated that he saw a wellness doctor in [facility]. He had reported that he would refuse to take care of any of his problems with medications despite him having reported multiple problems in the past including atrial fibrillation and a history of cerebrovascular accident. He had requested that a variety of images be completed to's help him support and confirm his past chronic heart problems. The patient had continue to refuse any medications at this time stating that he did not have any problems. Mental Status Exam MSE Comments: Is a casually dressed white male with fair eye contact and was more confrontational on interview and appeared in moderate distress. His gait was adequate. His hygiene was fair. There was no evidence of any abnormal involuntary motor movements tics or tremors appreciated. He was alert and oriented to person place and time. His mood was described as great. His affect appeared expansive.. His thought process was tangential although it was linear at times. His thought content showed clear evidence of bizarre delusional thinking and active paranoia. There was significant ideas of persecution. He did not appear to be responding to internal stimuli. His attention span appeared variable. His insight is impaired. His judgment is poor. His impulse control appeared poor as well. Vitals/I&O/Wt Last Vital Signs Temp 97.9 F 06/10/23 14:00 Pulse 51 L 06/10/23 14:00 Resp 16 06/10/23 14:00 BP 144/74 06/10/23 14:00 Pulse Ox 99 06/10/23 14:00 O2 Del Method Room Air 06/10/23 14:00 Weight last 48 hrs Weight 86.183 kg Data NPU 06/08/23 16:25 06/08/23 16:25 A&P Assessment and plan (1) Acute psychosis: (2) Schizophrenia, paranoid: (3) Bipolar 1 disorder: Plan Patient is a 68-year-old white male who appears psychotic this time with possible history of hector or schizophrenia who has been untreated for an extended period of time with significant consequences to the patient including multiple incarcerations who arrives here directly from long term. He will continue require acute treatment with likely require forced medications as the patient refusing all medications at this time. 1.?Encourage individual, group and milieu therapy. 2.?Recommend sober living treatment at the highest level of care to which the patient is willing to commit. 3.??? Continue q-15 minute checks for safety.? 4. Patient continues to refuse any medications and we will continue to monitor him while on a hold with transfer back to long term when discharged. Involuntary Hold Information 96 Hour Hold: 96 Hour Involuntary Admission: Yes 96 Hour Hold Ending Date: 06/14/23 96 Hour Hold Ending Time: 16:16 Attestations NPU Medical Necessity Statement*: Inpatient hospitalization is medically necessary and deemed to be the clinically appropriate intervention at this time. We will attempt to initiate medications while making changes as indicated. His likely length of stay is 5-7 days. Coding Level of Care Code Acute Code for g Fwd Diagnoses Acute psychosis F23 Schizophrenia, paranoid F20.0 Bipolar 1 disorder F31.9
[2023-06-10 19:42] VITALS: BP 146/81; PULSE 56; RESP 20; TEMP 36.6; O2SAT 98
[2023-06-11 06:00] VITALS: BP 129/93; PULSE 63; RESP 20; TEMP 36.4; O2SAT 99
--- NOTE | 2023-06-11 07:58 | PC.NURSE ---
During morning assessment, patient denies anxiety, depression, SI, and hallucinations but stated that he would kill somebody to protect himself if he had to. patient went on to say that it is his God-given right according to the Bible to kill somebody if he himself was in imminent danger. Patient denied any plan to kill anybody at this time, stating that everybody here is nice.
--- NOTE | 2023-06-11 12:46 | P.NPUPN_ITS ---
Subjective NPU Subjective: 68-year-old white male with a history of schizophrenia with a rule out of bipolar 1 disorder admitted directly from the local group home after displaying reportedly bizarre behaviors including drinking out of the toilet and defecating in his room in places other than his toilet. The patient had been calm on the unit and did not appear to engage in any unsafe or bizarre behaviors. He had consumed water and had not drank toilet water or defecated in inappropriate places. He had continued to deny having any mental illness and continued to construct a longstanding story that he was being persecuted and attacked by the police for several years. He reported that he would be able to prove this eventually and would expose the police department to corruption. He had made request of wanting to find out information regarding previous medical injuries including a scan of his heart despite there being no complaints currently about his heart. He continued to refuse all medications and stated that he did not believe in medications. The patient was redirectable. He had understood that he would be returning to group home once he was discharged from here. Mental Status Exam MSE Comments: Is a casually dressed white male with fair eye contact and was more confrontational on interview and appeared in moderate distress. His gait was adequate. His hygiene was fair. There was no evidence of any abnormal involuntary motor movements tics or tremors appreciated. He was alert and oriented to person place and time. His mood was described as good. His affect appeared irritable. His thought process was liinear. His thought content showed clear evidence of bizarre delusional thinking and active paranoia. He had considerable grandiosity. There was significant ideas of persecution. He did not appear to be responding to internal stimuli. His attention span appeared variable. His insight is impaired. His judgment is poor. His impulse control appeared poor as well. Vitals/I&O/Wt Last Vital Signs Temp 97.5 F L 06/11/23 06:00 Pulse 63 06/11/23 06:00 Resp 20 H 06/11/23 06:00 BP 129/93 06/11/23 06:00 Pulse Ox 99 06/11/23 06:00 O2 Del Method Room Air 06/11/23 06:00 Data NPU 06/08/23 16:25 06/08/23 16:25 A&P Assessment and plan (1) Acute psychosis: (2) Schizophrenia, paranoid: (3) Bipolar 1 disorder: Plan Patient is a 68-year-old white male who appears psychotic this time with possible history of hector or schizophrenia who has been untreated for an extended period of time with significant consequences to the patient including multiple incarcerations who arrives here directly from group home. He is refusing treatment at this time. 1.?Encourage individual, group and milieu therapy. 2.?Recommend sober living treatment at the highest level of care to which the patient is willing to commit. 3.??? Continue q-15 minute checks for safety.? 4. Patient continues to refuse any medications and we will continue to monitor him while on a hold with transfer back to group home when discharged. Involuntary Hold Information 96 Hour Hold: 96 Hour Involuntary Admission: Yes 96 Hour Hold Ending Date: 06/14/23 96 Hour Hold Ending Time: 16:16 Attestations NPU Medical Necessity Statement*: Inpatient hospitalization is medically necessary and deemed to be the clinically appropriate intervention at this time. We will attempt to initiate medications while making changes as indicated. His likely length of stay is 5-7 days. Coding Level of Care Code Acute Code for [facility] Fwd Diagnoses Acute psychosis F23 Schizophrenia, paranoid F20.0 Bipolar 1 disorder F31.9
[2023-06-11 14:00] VITALS: BP 154/89; PULSE 58; RESP 16; TEMP 36.9; O2SAT 99
[2023-06-11 20:01] VITALS: BP 158/87; PULSE 70; RESP 18; TEMP 36.7; O2SAT 99
[2023-06-12 06:00] VITALS: BP 160/82; PULSE 53; RESP 18; O2SAT 99
--- NOTE | 2023-06-12 08:14 | PC.NURSE ---
Patient denies SI, AVH, anxiety, and depression. When asked if he had thoughts of harming others, patient said you know my story referencing when he told me he would kill somebody in self-defense. Patient states that he is gonig to live until he is 89 and he is going to have more children.
--- NOTE | 2023-06-12 11:48 | XRR_ITS ---
PROCEDURE INFORMATION: Exam: XR Right Hand Exam date and time: 06/12/2023 12:23 PM Age: 68 years old Clinical indication: Hand; Right; Patient HX: RT thumb pain; Additional info: Injury to hand within the past three months, pain thumb TECHNIQUE: Imaging protocol: Radiologic exam of the right hand. Views: 3 or more views. COMPARISON: No relevant prior studies available. FINDINGS: Bones/joints: No fracture or dislocation. There is mild degenerative changes, involving mainly the IP joints, 1st MCP joint and 1st CMC joint, manifested by joint space narrowing, subchondral cysts and periarticular osteophytes. Soft tissues: Normal. XR/XR hand RT min 3V* [id number] IMPRESSION: 1. No acute findings. 2. Mild osteoarthrosis.
--- NOTE | 2023-06-12 13:16 | P.NPUPN_ITS ---
Subjective NPU Subjective: 68-year-old white male with a history of schizophrenia with a rule out of bipolar 1 disorder admitted directly from the local senior living after displaying reportedly bizarre behaviors including drinking out of the toilet and defecating in his room in places other than his toilet. Patient had complained about pain in his right hand. The patient had reported no depression currently. He had reported that he understood that he would be going back to senior living once discharged from here. He had engaged in no bizarre behavior. He had spent much of his time in the day room and was not isolative. He had engaged in appropriate self- care including showering. He reported continued ideas of being thwarted by the police in [facility]. He had reported that he wished to be his own coater at the hearing as he states that he had defended himself successfully before without the need of an employment attorney. Patient had no noted sleep disturbance. Mental Status Exam MSE Comments: Is a casually dressed white male with fair eye contact and was more confrontational on interview and appeared in no acute distress. His gait was adequate. His hygiene was fair. There was no evidence of any abnormal invo luntary motor movements tics or tremors appreciated. He was alert and oriented to person place and time. His mood was described as good. His affect appeared was euthymic. His thought process was linear. His thought content showed evidence of paranoid delusions and belief of specialness and infinite abilities reporting previously having nearly being the oldest man to play in the [facility]. There was significant ideas of persecution. He did not appear to be responding to internal stimuli. His attention span appeared variable. His insight is impaired. His judgment is poor. His impulse control appeared fair. Vitals/I&O/Wt Last Vital Signs Temp 98.1 F 06/11/23 20:01 Pulse 53 L 06/12/23 06:00 Resp 18 06/12/23 06:00 BP 160/82 06/12/23 06:00 Pulse Ox 99 06/12/23 06:00 O2 Del Method Room Air 06/11/23 14:00 Weight last 48 hrs Weight 93.44 kg Data NPU 06/08/23 16:25 06/08/23 16:25 A&P Assessment and plan (1) Acute psychosis: (2) Schizophrenia, paranoid: (3) Bipolar 1 disorder: Plan Patient is a 68-year-old white male who appears psychotic this time with possible history of hector or schizophrenia who has been untreated for an extended period of time with significant consequences to the patient including multiple incarcerations who arrives here directly from senior living. He is refusing treatment at this time. 1.?Encourage individual, group and milieu therapy. 2.?Recommend sober living treatment at the highest level of care to which the patient is willing to commit. 3.??? Continue q-15 minute checks for safety.? 4. Patient continues to refuse any medications and we will continue to monitor him while on a hold with transfer back to senior living when discharged. Involuntary Hold Information 96 Hour Hold: 96 Hour Involuntary Admission: Yes 96 Hour Hold Ending Date: 06/14/23 96 Hour Hold Ending Time: 16:16 Attestations NPU Medical Necessity Statement*: Inpatient hospitalization is medically necessary and deemed to be the clinically appropriate intervention at this time. We will attempt to initiate medications while making changes as indicated. His likely length of stay is 3-5 days. Coding Level of Care Code Acute Code for [facility] Fwd Diagnoses Acute psychosis F23 Schizophrenia, paranoid F20.0 Bipolar 1 disorder F31.9
[2023-06-12 14:00] VITALS: BP 125/69; PULSE 101; RESP 14; TEMP 36.8; O2SAT 97
[2023-06-12 19:59] VITALS: BP 148/88; PULSE 70; RESP 18; TEMP 36.4; O2SAT 98
[2023-06-13 06:00] VITALS: BP 136/71; PULSE 46; RESP 18; O2SAT 98
[2023-06-13 14:00] VITALS: BP 129/77; PULSE 76; RESP 16; TEMP 36.8; O2SAT 97
--- NOTE | 2023-06-13 14:43 | P.NPUPN_ITS ---
Subjective NPU Subjective: 68-year-old white male with a history of schizophrenia with a rule out of bipolar 1 disorder admitted directly from the local [place] [facility] after displaying reportedly bizarre behaviors including drinking out of the toilet and defecating in his room in places other than his toilet. Patient had been compliant here on the unit. He had expressed the belief unequivocally that if the police upon his return were to either put their hands on him or attempt to poison him as they had before that he would consider that a direct attack and would respond with lethal force and would kill. Patient had been compliant here on the unit. He had not reported feeling poisoned here. He reported no mood symptoms today. He had been redirectable and reported adequate sleep. He continued to report that there was an ongoing plot against him with the police and the [employer] that he would expose in the near future. Mental Status Exam MSE Comments: Is a casually dressed white male with fair eye contact and was not confrontational on interview and appeared in no acute distress. His gait was adequate. His hygiene was fair. There was no evidence of any abnormal involuntary motor movements tics or tremors appreciated. He was alert and oriented to person place and time. His mood was described as good. His affect appeared was euthymic. His thought process was linear. His thought content showed evidence of paranoid delusions and belief of specialness and infinite abilities. There was significant ideas of persecution. He denied any suicidal ideation. He had reported to homicidal threats to any police or staff and [place] [facility] that were attempting to put their hands on him or poison him. He did not appear to be responding to internal stimuli. His attention span appeared variable. His insight is impaired. His judgment is poor. His impulse control appeared fair. Vitals/I&O/Wt Last Vital Signs Temp 97.6 F 06/12/23 19:59 Pulse 46 L 06/13/23 06:00 Resp 18 06/13/23 06:00 BP 136/71 06/13/23 06:00 Pulse Ox 98 06/13/23 06:00 O2 Del Method Room Air 06/12/23 14:00 Weight last 48 hrs Weight 93.44 kg Data NPU 06/08/23 16:25 06/08/23 16:25 A&P Assessment and plan (1) Acute psychosis: (2) Schizophrenia, paranoid: (3) Bipolar 1 disorder: Plan Patient is a 68-year-old white male who appears psychotic this time with possible history of hector or schizophrenia who has been untreated for an extended period of time with significant consequences to the patient including multiple incarcerations who arrives here directly from [place]. He is refusing treatment at this time. 1.?Encourage individual, group and milieu therapy. 2.?Recommend sober living treatment at the highest level of care to which the patient is willing to commit. 3.??? Continue q-15 minute checks for safety.? 4. Patient continues to refuse any medications and we will continue to monitor him while on a hold with transfer back to [place] [facility] when discharged. He may require forced medication as he remains homicidal. Involuntary Hold Information 96 Hour Hold: 96 Hour Involuntary Admission: Yes 96 Hour Hold Ending Date: 06/14/23 96 Hour Hold Ending Time: 16:16 Attestations NPU Medical Necessity Statement*: Inpatient hospitalization is medically necessary and deemed to be the clinically appropriate intervention at this time. We will attempt to initiate medications while making changes as indicated. His likely length of stay is 5-7 days. Coding Level of Care Code Acute Code for [facility] Fwd Diagnoses Acute psychosis F23 Schizophrenia, paranoid F20.0 Bipolar 1 disorder F31.9
[2023-06-13 20:12] VITALS: BP 164/101; PULSE 71; RESP 18; TEMP 36.8; O2SAT 99
[2023-06-14 06:00] VITALS: BP 152/103; PULSE 59; RESP 18; TEMP 36.4; O2SAT 98
[2023-06-14] MEDS: docusate sodium 100 mg Capsule PO (06:38)
[2023-06-14 13:59] VITALS: BP 181/88; PULSE 80; RESP 18; TEMP 36.6; O2SAT 98
--- NOTE | 2023-06-14 15:54 | P.NPUPN_ITS ---
Subjective NPU Subjective: 68-year-old white male with a history of schizophrenia with a rule out of bipolar 1 disorder admitted directly from the local assisted after displaying reportedly bizarre behaviors including drinking out of the toilet and defecating in his room in places other than his toilet. No bizarre behaviors noted. He reports that he will be attending hearing tommorow. He reports that he hopes to go home after the hearing. No changes reported regarding his belief about using lethal force to kill others that were trying to kill him. He had expressed continued concern about attempting to [facility] [employer]. Mental Status Exam MSE Comments: Is a casually dressed white male with fair eye contact and was not confrontational on interview and appeared in no acute distress. His gait was adequate. His hygiene was fair. There was no evidence of any abnormal involuntary motor movements tics or tremors appreciated. He was alert and oriented to person place and time. His mood was described as good. His affect appeared was euthymic. His thought process was linear. His thought content showed continued evidence of paranoid delusions and grandiosity. There was significant ideas of persecution. He denied any suicidal ideation. He had reported to homicidal threats to any police or staff and assisted that were attempting to put their hands on him or poison him. He did not appear to be responding to internal stimuli. His attention span appeared fair today. His insight is impaired. His judgment is poor. His impulse control appeared fair. Vitals/I&O/Wt Last Vital Signs Temp 98 F 06/14/23 13:59 Pulse 80 06/14/23 13:59 Resp 18 06/14/23 13:59 BP 181/88 06/14/23 13:59 Pulse Ox 98 06/14/23 13:59 O2 Del Method Room Air 06/14/23 13:59 Data NPU 06/08/23 16:25 06/08/23 16:25 A&P Assessment and plan (1) Acute psychosis: (2) Schizophrenia, paranoid: (3) Bipolar 1 disorder: Plan Patient is a 68-year-old white male who appears psychotic this time with possible history of hector or schizophrenia who has been untreated for an extended period of time with significant consequences to the patient including multiple incarcerations who arrives here directly from assisted. He is refusing treatment at this time. 1.?Encourage individual, group and milieu therapy. 2.?Recommend sober living treatment at the highest level of care to which the patient is willing to commit. 3.??? Continue q-15 minute checks for safety.? 4. Patient continues to refuse any medications and we will continue to monitor him while on a hold with transfer back to assisted when discharged. He may require forced medication as he remains homicidal. 5. Court hearing scheduled tommorow for 21 day hold. Involuntary Hold Information 96 Hour Hold: 96 Hour Involuntary Admission: Yes 96 Hour Hold Ending Date: 06/14/23 96 Hour Hold Ending Time: 16:16 Attestations NPU Medical Necessity Statement*: Inpatient hospitalization is medically necessary and deemed to be the clinically appropriate intervention at this time. He is refusing medications at this time and may require forced medication. His likely length of stay is 5-7 days. Coding Level of Care Code Acute Code for [facility] Fwd Diagnoses Acute psychosis F23 Schizophrenia, paranoid F20.0 Bipolar 1 disorder F31.9
[2023-06-14 20:15] VITALS: BP 135/69; PULSE 68; RESP 17; TEMP 36.8; O2SAT 95
[2023-06-15 06:00] VITALS: BP 133/81; PULSE 73; RESP 16; TEMP 36.7; O2SAT 97
[2023-06-15 14:00] VITALS: BP 176/81; PULSE 83; RESP 20; TEMP 37; O2SAT 96
--- NOTE | 2023-06-15 15:59 | PC.NURSE ---
1515 Pt escorted off the unit with officers of the court.
--- NOTE | 2023-06-15 15:59 | PC.NURSE ---
1550 Pt returned back to the unit with officers of the court.
[2023-06-15 20:37] VITALS: BP 139/84; PULSE 60; RESP 18; TEMP 36.7; O2SAT 95
--- NOTE | 2023-06-15 20:44 | W.PM.NPUPNS ---
Subjective NPU Subjective: 68-year-old white male with a history of schizophrenia with a rule out of bipolar 1 disorder admitted directly from the local senior living after displaying reportedly bizarre behaviors including drinking out of the toilet and defecating in his room in places other than his toilet. No bizarre behaviors noted on unit. He has been eating and sleeping well. Nevertheless, he continued to express belief system that he was instrumental in fighting crime and corruption in [facility]. Patient had reported that he would use lethal force if attacked or if he were to be poisoned in senior living. He was present at trial at court and placed on 96 hour hold. Mental Status Exam MSE Comments: Is a casually dressed white male with fair eye contact and was not confrontational on interview and appeared in no acute distress. His gait was adequate. His hygiene was fair. There was no evidence of any abnormal involuntary motor movements tics or tremors appreciated. He was alert and oriented to person place and time. His mood was described as fine. . His affect appeared was euthymic. His thought process was linear. His thought content showed continued evidence of paranoid delusions and grandiosity. There was significant ideas of persecution. He denied any suicidal ideation. He had reported to homicidal threats to any police or staff and senior living that were attempting to put their hands on him or poison him. He did not appear to be responding to internal stimuli. His attention span appeared fair today. His insight is impaired. His judgment is poor. His impulse control appeared limited. Vitals/I&O/Wt Last Vital Signs Temp 98.1 F 06/15/23 20:37 Pulse 60 06/15/23 20:37 Resp 18 06/15/23 20:37 BP 139/84 06/15/23 20:37 Pulse Ox 95 06/15/23 20:37 O2 Del Method Room Air 06/15/23 20:37 Data NPU 06/08/23 16:25 06/08/23 16:25 A&P Assessment and plan (1) Acute psychosis: (2) Schizophrenia, paranoid: (3) Bipolar 1 disorder: Plan Patient is a 68-year-old white male who appears psychotic this time with possible history of hector or schizophrenia who has been untreated for an extended period of time with significant consequences to the patient including multiple incarcerations who arrives here directly from senior living. He is refusing treatment at this time. 1.?Encourage individual, group and milieu therapy. 2.?Recommend sober living treatment at the highest level of care to which the patient is willing to commit. 3.??? Continue q-15 minute checks for safety.? 4. Patient on day hold, 5. begin Invega 3mg at night, if refuses begin Haldol 5mg IM Involuntary Hold Information 96 Hour Hold: 96 Hour Involuntary Admission: Yes 96 Hour Hold Ending Date: 06/14/23 96 Hour Hold Ending Time: 16:16 Attestations NPU Medical Necessity Statement*: Inpatient hospitalization is medically necessary and deemed to be the clinically appropriate intervention at this time. He is refusing medications at this time and may require forced medication. His likely length of stay is 7-10 days. Coding Level of Care Code Acute Code for [facility] Fwd Diagnoses Acute psychosis F23 Schizophrenia, paranoid F20.0 Bipolar 1 disorder F31.9
[2023-06-16 06:00] VITALS: BP 132/72; PULSE 68; RESP 18; TEMP 36.4; O2SAT 98
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
--- NOTE | 2023-06-16 12:11 | P.NPUPN_ITS ---
Subjective NPU Subjective: Patient presented today reporting that he cannot take any medications that Dr. Palma prescribed because of his heart condition. He was frustrated secondary to the order for course of medication. Initially we had called a code 10 because he was agitated and doing in this radio news writer's face eventually calmed down and chose the oral medication over the shot. Otherwise he talked about how drinking out of the toilet at the [facility] was rational and that he is never lost the case in court and that he was going to be taking Dr. Palma and anyone else necessary to federal court. Mental Status Exam MSE Comments: This is a well-nourished well-developed tall white male looking younger than his stated age in hospital scrubs with limited grooming but appropriate eye contact. No abnormal movements except for significant psychomotor agitation. Cooperative with exam in moderate to extreme distress. Speech was increased rate and volume. Mood not described affect irritable and agitated. Thought process mostly organized. Thought content: Patient denied suicidal or homicidal ideation, there were no delusions reported but clear paranoia and grandiosity noted, he denied any auditory or visual hallucinations and did not appear to be attending to internal stimuli. Attention and concentration were limited and memory was unreliable but none were formally tested. He is alert and oriented to person and place. Insight and judgment were limited and impulse control impaired. Vitals/I&O/Wt Last Vital Signs Temp 97.6 F 06/16/23 06:00 Pulse 68 06/16/23 06:00 Resp 18 06/16/23 06:00 BP 132/72 06/16/23 06:00 Pulse Ox 98 06/16/23 06:00 O2 Del Method Room Air 06/16/23 06:00 Data NPU 06/08/23 16:25 06/08/23 16:25 A&P Assessment and plan (1) Acute psychosis: (2) Schizophrenia, paranoid: (3) Bipolar 1 disorder: Plan Patient is a 68-year-old white male who appears psychotic this time with possible history of hector or schizophrenia who has been untreated for an extended period of time with significant consequences to the patient including multiple incarcerations who [facility] directly from [facility]. He is refusing nnamdi atment at this time. 1.?Encourage individual, group and milieu therapy. 2.?Recommend sober living treatment at the highest level of care to which the patient is willing to commit. 3.??? Continue q-15 minute checks for safety.? 4. Patient on 21 day hold, 5. Began Invega 3mg at night, if refuses give Haldol 5mg IM. We will plan to increase to 6 mg likely and transition to injection. Involuntary Hold Information 96 Hour Hold: 96 Hour Involuntary Admission: Yes 96 Hour Hold Ending Date: 06/14/23 96 Hour Hold Ending Time: 16:16 Attestations NPU Medical Necessity Statement*: Inpatient hospitalization is medically necessary and deemed to be the clinically appropriate intervention at this time. He is refusing medications at this time and may require forced medication. His likely length of stay is 7-10 days. Coding Level of Care Code Acute Code for [facility] Fwd Diagnoses Acute psychosis F23 Schizophrenia, paranoid F20.0 Bipolar 1 disorder F31.9
[2023-06-16] MEDS: paliperidone ER 3 mg Tablet PO (13:40)
[2023-06-16 14:00] VITALS: BP 172/94; PULSE 75; RESP 18; TEMP 36.6; O2SAT 97
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
--- NOTE | 2023-06-16 15:50 | PC.NURSE ---
pt given instruction on phone privileges while on our unit. [facility] asking for Carrie Llamas pt. stating she has been calling him for his property assessment and that she has a lawsuit and charges filed on the federal government for corruption and that is what they have been talking about. pt states he will be speaking to his health care manager and filing a federal lawsuit against this hospital for not treating him like a human and allowing him to use the phone. I again went over with pt on the phone privileges while he was a patient at this facility and that he is allowed to use the phone but is restricted from harassing government officials . pt stated understanding.
[2023-06-16 20:10] VITALS: BP 149/81; PULSE 75; RESP 18; TEMP 36.6; O2SAT 99
[2023-06-17] MEDS: paliperidone ER 3 mg Tablet PO (09:31)
--- NOTE | 2023-06-17 10:01 | PC.NURSE ---
PT AGITATED AND WANTING ALL NURSING STAFF IN ROOM. GRANDIOSE WHEN SPEAKING TO STAFF. PT STATES NO ONE WILL HONOR HIS DIETARY WISHES OF NO PORK AND DOUBLE PORTIONS. THIS RN INFORMED PT THAT HE HAD NEVER REQUESTED THAT BUT COULD SPEAK TO AND GET THE ORDER. NEW ORDERS RECEIVED FOR REGULAR DIET, NO PORK AND DOUBLE PORTIONS. DIETARY CALLED AND INFORMED OF NEW ORDERS. TOE STAPLER STATES RN WILL HAVE TO ADD PORK AN ALLERGY. PORK WAS ADDED TO ALLERGY, PT DOES NOT CONFIRM HE HAS ALLERGIES, HE JUST DOES NOT WANT TO EAT PORK. ALL QUESTIONS ANSWERED AND SUPPORT WAS VOICED.
--- NOTE | 2023-06-17 10:34 | PC.NURSE ---
Per patient request, this nurse checked patient's BP at 1000. Reading was 165/106. Patient was agitated at this time. This nurse returned 30 minutes later to check BP. Reading was 154/84. Will continue to watch patient closely
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
[2023-06-17 14:00] VITALS: BP 162/85; PULSE 77; RESP 16; TEMP 36.6; O2SAT 97
[2023-06-17 21:16] VITALS: BP 143/92; PULSE 74; RESP 17; TEMP 36.6; O2SAT 97
[2023-06-18 06:00] VITALS: BP 157/98; PULSE 63; RESP 18; O2SAT 99
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
[2023-06-18] MEDS: haloperidol inj 5 mg/mL INJ 1 mL IM (10:21)
[2023-06-18] MEDS: LORazepam 2 mg/mL INJ 1 mL IM (10:21)
[2023-06-18] MEDS: diphenhydrAMINE 50 mg/mL SDV 1mL IM (10:22)
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
--- NOTE | 2023-06-18 10:58 | PC.NURSE ---
Patient refused medications, patient agitated in the face of staff.
[2023-06-18 14:00] VITALS: BP 148/87; PULSE 87; RESP 20; TEMP 37.1; O2SAT 97
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
--- NOTE | 2023-06-18 20:23 | PC.NURSE ---
pt resting due to prn medsd today resp 16
[2023-06-19 06:00] VITALS: BP 170/79; PULSE 58; RESP 18; O2SAT 99
[2023-06-19] MEDS: docusate sodium 100 mg Capsule PO (07:50)
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
[2023-06-19] MEDS: polyethylene glycol 3350 Pkt 17 gm PO (08:34)
[2023-06-19] MEDS: paliperidone ER 6 mg Tablet PO (08:35)
--- NOTE | 2023-06-19 08:46 | PC.NURSE ---
Patient took his 0900 Invega with no issue. Patient stated that the medication did look different from the last time he took it. He asked how often he is to receive the med. This nurse told him it was a once daily medication. Patient took the med with miralax. Adan from Security was present, just outside the door, during medication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.
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
[2023-06-19 14:00] VITALS: BP 150/78; PULSE 82; RESP 20; TEMP 37; O2SAT 98
[2023-06-19 20:26] VITALS: BP 138/76; PULSE 61; RESP 18; TEMP 37.1; O2SAT 97
[2023-06-20 06:00] VITALS: BP 132/86; PULSE 68; RESP 18; TEMP 36.5; O2SAT 98
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
[2023-06-20] MEDS: polyethylene glycol 3350 Pkt 17 gm PO (09:05)
[2023-06-20] MEDS: paliperidone ER 6 mg Tablet PO (09:05)
--- NOTE | 2023-06-20 09:15 | PC.NURSE ---
During morning assessment, patient stated that he had bizarre dreams during the night that were positive for him because e was successful in them. Patient said that six years ago it was prophesized to him that he doesn't need anyone to teach him anymore. He went on to say, I can learn stuff, but no one's gonna teach me in a classroom setting. Patient then said that he tries to teach the staff here with logic and compassion. He said logic doesn't work with Dr. Chinchilla, that he is demon-possessed. Patient stated, I have faced demons, they are manifested in my presence. Patient said that Dr. Chinchilla laughs with staff but that he is using staff like any good demon would .
[2023-06-20 14:00] VITALS: BP 145/96; PULSE 77; RESP 18; TEMP 36.7; O2SAT 97
[2023-06-20 20:21] VITALS: BP 156/85; PULSE 72; RESP 18; TEMP 36.6; O2SAT 96
--- NOTE | 2023-06-21 00:43 | PC.NURSE ---
pt came to the desk ranting about the information he was reading up on about the medication he has been forced to take. pt stated the doctor is a kook! the side effects of these medications are bad. 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
[2023-06-21 06:00] VITALS: RESP 16
[2023-06-21] MEDS: paliperidone ER 6 mg Tablet PO (11:40)
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
[2023-06-21 13:50] VITALS: BP 159/81; PULSE 73; RESP 18; TEMP 36.6; O2SAT 99
[2023-06-21 20:25] VITALS: BP 143/81; PULSE 64; RESP 19; TEMP 36.6; O2SAT 98
[2023-06-22] MEDS: haloperidol inj 5 mg/mL INJ 1 mL IM (00:39)
[2023-06-22] MEDS: diphenhydrAMINE 50 mg/mL SDV 1mL IM (00:39)
[2023-06-22] MEDS: LORazepam 2 mg/mL INJ 1 mL IM (00:40)
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
--- NOTE | 2023-06-22 06:41 | PC.NURSE ---
pt resting resp 17
[2023-06-22] MEDS: paliperidone ER 6 mg Tablet PO (09:16)
[2023-06-22] MEDS: polyethylene glycol 3350 Pkt 17 gm PO (09:16)
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
--- NOTE | 2023-06-22 09:35 | PC.NURSE ---
During assessment, patient stated that he is doing amazing; I'm not . Patient states that Dr. Chinchilla is refusing to listen and mocks him. Patient stated that Dr. Chinchilla is demon-possessed. Patient believes that Dr. Chinchilla is from [facility], [place] [facility] [place] [facility] [place], per patient. Patient said that Invega is a specific poison for me . Patient said that it is clear from the poultry farmer meat it should not be given to me . Patient also said that he is aggravated at another patient because he talks too much.
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
[2023-06-22 14:00] VITALS: BP 130/80; PULSE 75; RESP 16; TEMP 36.6; O2SAT 96
[2023-06-22 21:05] VITALS: BP 131/73; PULSE 69; RESP 18; TEMP 36.6; O2SAT 97
[2023-06-23 06:00] VITALS: BP 160/105; PULSE 79; RESP 18; TEMP 36.4; O2SAT 98
[2023-06-23] MEDS: paliperidone ER 6 mg Tablet PO (10:09)
[2023-06-23] MEDS: polyethylene glycol 3350 Pkt 17 gm PO (10:09)
[2023-06-23 14:00] VITALS: BP 175/91; PULSE 88; RESP 16; TEMP 36.8; O2SAT 94
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
[2023-06-23 20:47] VITALS: BP 195/100; PULSE 85; RESP 20; TEMP 36.8; O2SAT 97
[2023-06-24 06:00] VITALS: BP 172/93; PULSE 77; RESP 18; TEMP 36.9; O2SAT 97
[2023-06-24] MEDS: paliperidone ER 6 mg Tablet PO (08:23)
[2023-06-24] MEDS: polyethylene glycol 3350 Pkt 17 gm PO (08:23)
[2023-06-24 14:00] VITALS: BP 160/70; PULSE 69; RESP 17; TEMP 36.6; O2SAT 97
[2023-06-24] MEDS: paliperidone palmitate 234 mg Syringe IM (14:06)
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
[2023-06-24 20:41] VITALS: BP 164/76; PULSE 71; RESP 17; TEMP 36.8; O2SAT 97
[2023-06-25 06:00] VITALS: BP 155/90; PULSE 83; RESP 17; O2SAT 95
[2023-06-25] MEDS: paliperidone ER 6 mg Tablet PO (09:23)
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
[2023-06-25 14:00] VITALS: BP 139/100; PULSE 86; RESP 16; TEMP 36.8; O2SAT 97
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
[2023-06-25 21:49] VITALS: BP 145/88; PULSE 77; RESP 18; TEMP 36.8; O2SAT 98
[2023-06-26 06:00] VITALS: RESP 17
[2023-06-26] MEDS: paliperidone ER 6 mg Tablet PO (09:40)
--- NOTE | 2023-06-26 13:45 | PC.NUTR ---
Pt stopped me and asked questions after I was finished interviewing his roommate. He said he has gained back wt he had lost but still wants extra protein. Together we decided on Ensure Enlive w/bfast and dinner and no more double portions. It is in his chart.
[2023-06-26 13:54] VITALS: BP 151/89; PULSE 84; RESP 16; TEMP 37.1; O2SAT 96
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
[2023-06-26 20:59] VITALS: BP 144/93; PULSE 96; RESP 18; TEMP 36.7; O2SAT 95
--- NOTE | 2023-06-26 21:04 | PC.NURSE ---
PT REQUEST HE NO LONGER RECEIVE DOUBLE PORTIONS DUE TO GAINING SOME WEIGHT. STATES HE MET WITH THE SCRAP SAWYER AND WAS HAPPY TO SPEAK TO HER ABOUT HIS DIETARY NEEDS. NEW ORDERS RECEIVED FROM DR. JEAN TO DISCONTINUE DOUBLE PORTIONS. PT STILL DOES NOT WANT PORK ON HIS TRAYS. NO PORK WAS LEFT IN PHYSICIAN INSTRUCTIONS. EDUCATED PROVIDED TO PT REGARDING SUPPLEMENTS, ENSURE AND DIET. ALL QUESTIONS ANSWERED AND SUPPORT VOICED. PT VERBALIZES UNDERSTANDING.
[2023-06-27] MEDS: paliperidone ER 6 mg Tablet PO (08:51)
[2023-06-27] MEDS: magnesium hydroxide 30 mL UDC PO (08:51)
[2023-06-27 14:00] VITALS: BP 134/84; PULSE 92; RESP 17; TEMP 36.8; O2SAT 95
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
[2023-06-27 20:24] VITALS: BP 130/83; PULSE 72; RESP 18; TEMP 36.4; O2SAT 96
[2023-06-28 05:51] VITALS: RESP 16
[2023-06-28] MEDS: paliperidone ER 6 mg Tablet PO (08:21)
[2023-06-28 14:00] VITALS: BP 165/82; PULSE 89; RESP 16; TEMP 37.2; O2SAT 96
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
[2023-06-28 22:00] VITALS: BP 142/86; PULSE 82; RESP 16; O2SAT 96
[2023-06-29 06:00] VITALS: BP 150/85; PULSE 71; RESP 16; O2SAT 96
[2023-06-29] MEDS: paliperidone ER 6 mg Tablet PO (08:53)
[2023-06-29 14:00] VITALS: BP 168/79; PULSE 66; RESP 16; TEMP 36.8; O2SAT 97
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
[2023-06-29 20:41] VITALS: BP 167/88; PULSE 93; RESP 16; O2SAT 95
[2023-06-30 06:00] VITALS: BP 168/81; PULSE 86; RESP 15; TEMP 36.7; O2SAT 96
[2023-06-30] MEDS: paliperidone ER 6 mg Tablet PO (08:53)
[2023-06-30] MEDS: polyethylene glycol 3350 Pkt 17 gm PO (08:56)
--- NOTE | 2023-06-30 09:47 | PC.NURSE ---
During morning assessment, patient stated that he is doing good . Patient denies anxiety, depression, SI, HI, AVH. No distress visualized. Patient is calm, cooperative, and pleasant in demeanor. Took his morning medications with no issue.
[2023-06-30 14:00] VITALS: BP 157/90; PULSE 78; RESP 14; TEMP 36.6; O2SAT 96
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
[2023-06-30 20:20] VITALS: BP 157/106; PULSE 88; RESP 16; TEMP 36.6; O2SAT 97
[2023-07-01 06:00] VITALS: BP 143/97; PULSE 79; RESP 16; O2SAT 95
[2023-07-01] MEDS: paliperidone ER 6 mg Tablet PO (08:56)
[2023-07-01] MEDS: polyethylene glycol 3350 Pkt 17 gm PO (08:56)
[2023-07-01] MEDS: paliperidone palmitate 156 mg Syringe IM (12:42)
[2023-07-01 14:00] VITALS: BP 153/85; PULSE 80; RESP 18; TEMP 36.6; O2SAT 97
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
[2023-07-01 20:28] VITALS: BP 171/100; PULSE 87; RESP 18; TEMP 36.7; O2SAT 98
[2023-07-02 06:00] VITALS: BP 159/112; PULSE 84; RESP 18; O2SAT 97
[2023-07-02] MEDS: paliperidone ER 6 mg Tablet PO (09:17)
[2023-07-02] MEDS: polyethylene glycol 3350 Pkt 17 gm PO (09:17)
[2023-07-02 13:38] VITALS: BP 161/91; PULSE 86; RESP 18; TEMP 36.9; O2SAT 96
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
[2023-07-02 20:40] VITALS: BP 153/109; PULSE 103; RESP 17; TEMP 36.4; O2SAT 97
--- NOTE | 2023-07-02 20:44 | PC.NURSE ---
IN BED RESTING AROUSES TO VOICE. DENIES PAIN. DENIES SI/HI AND AVH AT THIS TIME. PT STATES HE IS TIRED AND JUST WANTS TO REST. SUPPORT VOICED AND PT ALLOWED TO GO BACK TO RESTING.
[2023-07-03 06:00] VITALS: BP 153/92; PULSE 75; RESP 16; TEMP 36.5; O2SAT 98
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
[2023-07-03] MEDS: paliperidone ER 6 mg Tablet PO (08:00)
--- NOTE | 2023-07-03 08:02 | PC.NURSE ---
refused scheduled Miralax
[2023-07-03] MEDS: polyethylene glycol 3350 Pkt 17 gm PO (09:22)
--- NOTE | 2023-07-03 09:22 | PC.NURSE ---
TOOK SCHEDULED MIRALAX AT THIS TIME PER PATIENT REQUEST
[2023-07-03 14:00] VITALS: BP 150/98; PULSE 74; RESP 16; TEMP 36.6; O2SAT 98
[2023-07-03 20:59] VITALS: BP 156/102; PULSE 85; RESP 15; O2SAT 98
[2023-07-04 06:00] VITALS: BP 169/100; PULSE 62; RESP 18; O2SAT 98
[2023-07-04] MEDS: polyethylene glycol 3350 Pkt 17 gm PO (07:59)
[2023-07-04] MEDS: paliperidone ER 6 mg Tablet PO (07:59)
[2023-07-04 14:00] VITALS: BP 155/92; PULSE 86; RESP 18; TEMP 36.8; O2SAT 93
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
[2023-07-04 21:12] VITALS: BP 158/83; PULSE 80; RESP 17; TEMP 36.7; O2SAT 96
[2023-07-05 06:00] VITALS: BP 138/82; PULSE 71; RESP 15; O2SAT 98
[2023-07-05] MEDS: polyethylene glycol 3350 Pkt 17 gm PO (08:20)
[2023-07-05] MEDS: paliperidone ER 6 mg Tablet PO (08:20)
[2023-07-05 14:00] VITALS: BP 132/81; PULSE 73; RESP 16; O2SAT 99
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
[2023-07-05 19:50] VITALS: BP 147/78; PULSE 74; RESP 16; TEMP 37; O2SAT 96
[2023-07-06 05:44] VITALS: BP 149/83; PULSE 70; RESP 15; O2SAT 96
[2023-07-06] MEDS: paliperidone ER 6 mg Tablet PO (08:46)
[2023-07-06] MEDS: polyethylene glycol 3350 Pkt 17 gm PO (08:47)
--- NOTE | 2023-07-06 12:49 | DCPLANNER ---
IMM completed with pt and pt was given a copy of rights.
[2023-07-06 14:00] VITALS: BP 160/97; PULSE 85; RESP 16; TEMP 36.3; O2SAT 96
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
[2023-07-06 14:24] VITALS: BP 160/97; PULSE 85; RESP 16; TEMP 36.3; O2SAT 96
--- NOTE | 2023-07-06 15:03 | PC.NURSE ---
written discharge instruction discussed and left with patient. pt stated understanding and compliance. per court order notified [facility] of pt ready for discharge. [facility] department arrived escorted pt off premise. pt appeared to be calm walked quietly with deputies.
== END 2023-07-06 15:07 | DRG 885 ==
LOC: ER 18:24 → NP 20:02
PROVIDERS: Physician Assistant; Admitting Provider Psychiatry & Neurology Psychiatry; Emergency Provider Physician Assistant; Visit Provider Psychiatry & Neurology Psychiatry
DX: F20.0 Paranoid schizophrenia (principal); R45.850 Homicidal ideations; R45.6 Violent behavior
CPT/HCPCS: 36415; 73130; 80053; 80306; 80307; 81003; 84443; 85025; 96372; 97150; 97165; 99238; 99285; J1200; J1630; J2060

== ENCOUNTER → 2023-08-02 12:58 | Outpatient (BNVA) | payer MEDICARE, OTHER, SELFPAY ==
[2022-01-22 13:32] VITALS: BP 136/92; BMI 26.8
== END ==
PROVIDERS: Visit Provider Psychiatry & Neurology Psychiatry
DX: Z79.899 Other long term (current) drug therapy (principal); F20.0 Paranoid schizophrenia
CPT/HCPCS: 80053; 80061; 83036; 84443; 85025

== ENCOUNTER 2023-11-04 16:31 | Emergency (ER) | payer MEDICARE, MEDICAID, SELFPAY ==
[2022-01-22 13:32] VITALS: BP 136/92; BMI 26.8
[2023-11-04 16:44] VITALS: BP 178/111; PULSE 89; TEMP 36.4; O2SAT 99; BMI 26.1
--- NOTE | 2023-11-04 17:14 | ED_ITS ---
HPI - General Adult General: Chief complaint: General Medical Stated complaint: high B/P Time Seen by Provider: 11/04/23 17:09 Source: patient Mode of arrival: ambulatory Limitations: no limitations History of Present Illness: 68-year-old male states he has a history of hypertension states he has not taken any of his blood pressure meds in the last year as he is in between doctors at this time he states he is following [facility] now but he had went to [facility] to check his blood pressure and it was in the 190s is 188/120 here. He denies any symptoms he denies any chest pain or headache. Associated symptoms: Deny chest pain, dyspnea, headache(s), nausea, rash or vomiting Review of Systems Const: Denies: fever(s), chills, body aches or change in appetite Eyes: Denies: blurry vision or eye discomfort ENMT: Denies: throat pain or dental pain Card: Denies: chest pain Resp: Denies: dyspnea GI: Denies: abdominal pain, nausea, vomiting or diarrhea : Denies: dysuria Musc: Denies: neck pain or back pain Skin/Breast: Denies: rash Neuro: Denies: headache(s) PFSH ED PFSH: Medical History Psychiatric care Psychiatric care Polyuria BPH loc w urin obs/LUTS CVA (cerebral vascular accident) Atrial fibrillation Bipolar 1 disorder Hypertension GERD (gastroesophageal reflux disease) Surgical History S/P coronary angiogram History of surgery on arm (~2015) Family History (Updated 07/19/23 @ 10:07 by Gurinder Mendoza [facility]) Other Bipolar 1 disorder Hypertension Rheumatoid arthritis Social History Smoking and tobacco/nicotine status: never used tobacco/nicotine Second hand smoke exposure: No Alcohol intake: current Alcohol intake frequency: holidays/special occasions only Substance/Drug Use: never Adopted: No Caregiver/support person: No Lives independently: Yes Household members: none Housing: Apartment Marital status: Number of children: 2 Number of grandchildren: 4 Highest education level completed: Bachelor's Degree 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, 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 service: No Current occupational status: retired Pets and animals: No Leisure activites: other Leisure activities details: likes to run and exercise Sexually active: No Do you think of yourself as: Straight/Heterosexual Current gender identity: Male Tish/Christian: Zoroastrian Special tish needs: No Agree to transfusion: Yes Physical Exam Const: COMMON NORMALS: no acute distress, patient oriented x3 and healthy appe aring HENMT: COMMON NORMALS: normocephalic and atraumatic HEAD & SCALP: normocephalic and atraumatic Eye: COMMON NORMALS: conjunctivae normal CONJUNCTIVA: Yes conjunctivae normal Neck/C-Spine: COMMON NORMALS: full ROM and supple Chest: COMMONS NORMALS: normal inspection of the chest and normal palpation of entire chest wall Resp: COMMON NORMALS: normal respiratory effort, No retractions, No use of accessory muscles and clear to auscultation bilaterally AUSCULTATION: clear to auscultation bilaterally Cardio: COMMON NORMALS: regular rate, regular rhythm and No murmurs present (Cardio) RATE: regular rate RHYTHM: regular rhythm Extremity: COMMON NORMALS: normal to inspection and full ROM Neuro: COMMON NORMALS: patient oriented x3, moves all extremities and no focal motor deficits Psych: COMMON NORMALS: mental status grossly normal, Normal thought process present and cooperative THOUGHT PROCESS: Normal thought process present Skin: COMMON NORMALS: no rashes or lesions noted and no wounds GENERAL SKIN EXAM: no rashes or lesions noted Course Vital Signs: Vital signs: Vital Signs Temperature 97.6 F 11/04/23 16:44 Pulse Rate 89 11/04/23 16:44 Blood Pressure 178/111 11/04/23 16:44 Pulse Oximetry 99 11/04/23 16:44 Oxygen Delivery Me thod Room Air 11/04/23 16:44 MDM - General Adult Medical Decision Making Patient presents here with hypertension he has not been taking meds for quite some time as he is asymptomatic we will start him on metoprolol. Patient also has a history of A-fib he states he used to be on blood thinners I recommended blood thinners and will get a prescribing for Eliquis but he refuses he states he does not want to be on blood thinners at this time I informed he does need to follow-up with his primary care doctor for his A-fib and his hypertension return if worsening. Medical Records I reviewed the patient's medical records. No radiology studies performed this visit EKG Data EKG 1: I personally reviewed and interpreted this EKG as follows: EKG interpretation date: 11/04/23 EKG interpretation time: 17:17 Interpretation: afib hr [address] or t wave abnormalities qrs 87 qtc 410 Discharge Plan Discharge Patient Disposition: Home Clinical Impression: Atrial fibrillation Hypertension Qualifiers: Hypertension type: primary hypertension Qualified Code(s): I10 - Essential (primary) hypertension Condition: Stable Prescriptions: New metoprolol succinate 50 mg tablet extended release 24 hr 50 mg PO DAILY Qty: 30 1RF No Action paliperidone palmitate 234 mg/1.5 mL syringe 234 mg IM Q30D 30 Days Qty: 1.5 1RF Discharge Orders: Discharge ED (Routine); Ordered 11/04/23 Ordered By: Darryn Downing Discharge Diet: Advance as tolerated Discharge Activity: Resume usual activity Patient Instructions: Hypertension (ED) Coding Level of Care Code ED [employer] for Juliano Cabrales
--- NOTE | 2023-11-04 17:17 | ECG_ITS ---
[facility] Test Date: 2023-11-04 Pat Name: Kirby Whitehead Department: Room: Gender: Male Employment Legal Assistant: : 1955 Requested By: Darryn Downing Order Number: [id number] Cathleen MD: Gary Casey M.D. Measurements Intervals [place] Rate: 81 P: 0 UT: 0 QRS: 96 QRSD: 87 T: 35 QT: 372 QTc: 434 Interpretive Statements ATRIAL FIBRILLATION BORDERLINE RIGHT AXIS DEVIATION [QRS AXIS > 90] POSSIBLE RIGHT VENTRICULAR CONDUCTION DELAY [RSR (QR) IN V1/V2] ABNORMAL RHYTHM ECG Compared to ECG 10/29/2022 00:13:24 No significant changes Electronically Signed On 11-04-2023 17:28:38 [employer] by Gary Casey M.D. [email or web address]
[2023-11-04] MEDS: metoprolol tartrate 50 mg Tablet PO (17:31)
[2023-11-04 17:35] VITALS: BP 174/109; PULSE 80; O2SAT 98
--- NOTE | 2023-11-05 08:59 | PC.NURSE ---
Patient was seen last night by Dr. Downing and was unable to get his prescription filled at the pharmacy since they closed at 5pm and are closed all weekend and Tuesday for the holiday. Patient presented to the ER this morning and asked if we could call in the script to another pharmacy so he could get his medication. I called in his prescription to [facility] in [place] and told him that it should be ready shortly.
== END 2023-11-04 17:37 | disposition home or self-care (01) ==
PROVIDERS: Emergency Provider Emergency Medicine
DX: I10 Essential (primary) hypertension (principal); I48.91 Unspecified atrial fibrillation; Z86.73 Personal history of transient ischemic attack (TIA), and cerebral infarction without residual deficits
CPT/HCPCS: 93005; 99283

== ENCOUNTER 2023-11-07 16:26 | Emergency (ER) | payer MEDICARE, MEDICAID, SELFPAY ==
[2022-01-22 13:32] VITALS: BP 136/92; BMI 26.8
[2023-11-07 17:17] VITALS: BP 167/104; PULSE 70; RESP 16; TEMP 36.8; O2SAT 98; BMI 27.1
--- NOTE | 2023-11-07 17:54 | XRR_ITS ---
PROCEDURE INFORMATION: Exam: XR Chest Exam date and time: 11/07/2023 6:10 PM Age: 68 years old Clinical indication: Other: HTN TECHNIQUE: Imaging protocol: Radiologic exam of the chest. Views: 1 view. COMPARISON: CR XR chest 1V portable [id number] 02/06/2023 3:40 AM FINDINGS: Lungs: Left lung base is somewhat indistinct relative to comparison study. No interval change on the right. Pleural spaces: No pneumothorax. Heart/Mediastinum: Unchanged. Bones/joints: No acute findings. XR/XR chest 1V portable [id number] IMPRESSION: Left lung base is somewhat indistinct; this may relate to technical factors although pleural or parenchymal abnormalities at left base can not be excluded. If there is concern relating to any left basilar abnormalities clinically, repeat evaluation with PA and lateral views may be helpful.
--- NOTE | 2023-11-07 18:00 | ECG_ITS ---
[facility] Test Date: 2023-11-07 Pat Name: Kirby Whitehead Department: Room: Gender: Male Roofing Foreman: : 1955 Requested By: Darryn Downing Order Number: [id number] Cathleen MD: Gary Casey M.D. Measurements Intervals [place] Rate: 62 P: 0 [place]: 0 QRS: 98 QRSD: 86 T: 58 QT: 401 QTc: 407 Interpretive Statements ATRIAL FIBRILLATION BORDERLINE RIGHT AXIS DEVIATION [QRS AXIS > 90] Compared to ECG 11/04/2023 17:17:23 No significant changes Electronically Signed On 11-08-2023 11:26:44 FIGHTING VEHICLE INFANTRYMAN by Gary Casey M.D. [email or web address] memorial community hospitalDomain Holdings Groupsouthview medical centerYazino/store/OM/[id number]
[2023-11-07] MEDS: hyDRALAzine 20 mg/mL INJ 1 mL 10 MG IVP (18:02)
[2023-11-07 18:07] VITALS: BP 203/101; PULSE 103; RESP 18; O2SAT 98
[2023-11-07 18:15] LABS: Basophils # 0.1 10^3/uL (0.0-0.1); Basophils % 0.8 %; Eosinophils # 0.3 10^3/uL (0.0-0.8); Eosinophils % 4.3 %; Hematocrit 40.1 % (37-53); Lymphocytes # 1.9 10^3/uL (0.8-4.8); Lymphocytes % 26.2 %; Mean Corpuscular HGB Conc 33.4 g/dL (30-55); Mean Corpuscular Hemoglobin 30.5 pg (27-33); Mean Corpuscular Volume 91.1 fl (82-101); Mean Platelet Volume 10.2 fL (7.4-10.4); Monocytes % 12.9 %; Neutrophils # 4.08 10^3/uL (1.8-7.7); Neutrophils % 55.3 %; Nucleated Red Blood Cells % 0 %; Platelet Count 231 10^3/cmm (157-399); Red Cell Distribution Width 13.9 % (12.1-15.1); White Blood Count 7.38 10^3/uL (3.29-11.43)
--- NOTE | 2023-11-07 18:23 | ED_ITS ---
HPI - General Adult 2 General: Chief complaint: General Medical Stated complaint: high bp, passing out Time Seen by Provider: 11/07/23 17:47 Source: patient Mode of arrival: ambulatory Limitations: no limitations History of Present Illness: 68-year-old male has a history of hypert ension he had been out of his meds for years due to not having a PCP patient was seen this week in the ER started on metoprolol he states that he has had some dizziness checked his blood pressure at [facility] today was in the 200s. He denies any chest pain. He denies any headaches he states the dizziness is since resolved his blood pressure here is improved and rise in room was 154/102 Associated symptoms: Deny chest pain, dyspnea, headache(s), nausea, rash or vomiting Review of Systems 2 Const: Denies: fever(s), chills, body aches or change in appetite ENMT: Denies: throat pain or dental pain Card: Denies: chest pain Resp: Denies: dyspnea GI: Denies: abdominal pain, nausea, vomiting or diarrhea Musc: Denies: neck pain or back pain Skin/Breast: Denies: rash Neuro: Reports: dizziness; Denies: headache(s) PFSH ED 2 PFSH: Medical History Psychiatric care Psychiatric care Polyuria BPH loc w urin obs/LUTS CVA (cerebral vascular accident) Atrial fibrillation Bipolar 1 disorder Hypertension GERD (gastroesophageal reflux disease) Surgical History S/P coronary angiogram History of surgery on arm (~2015) Family History (Updated 07/19/23 @ 10:07 by Gurinder Mendoza [facility]) Other Bipolar 1 disorder Hypertension Rheumatoid arthritis Social History Smoking and tobacco/nicotine status: never used tobacco/nicotine Second hand smoke exposure: No Alcohol intake: current Alcohol intake frequency: holidays/special occasions only Substance/Drug Use: never Adopted: No Caregiver/support person: No Lives independently: Yes Household members: none Housing: Apartment Marital status: Number of children: 2 Number of grandchildren: 4 Highest education level completed: Bachelor's Degree 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, 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 service: No Current occupational status: retired Pets and animals: No Leisure activites: other Leisure activities details: likes to run and exercise Sexually active: No Do you think of yourself as: Straight/Heterosexual Current gender identity: Male Tish/Orthodoxy: Uatsdin Special tish needs: No Agree to transfusion: Yes Physical Exam 2 Const: COMMON NORMALS: no acute distress, patient oriented x3 and healthy appearing HENMT: COMMON NORMALS: normocephalic and atraumatic HEAD & SCALP: n ormocephalic and atraumatic Eye: COMMON NORMALS: conjunctivae normal CONJUNCTIVA: Yes conjunctivae normal Neck/C-Spine: COMMON NORMALS: full ROM and supple Chest: COMMONS NORMALS: normal inspection of the chest and normal palpation of entire chest wall Resp: COMMON NORMALS: normal respiratory effort, No retractions, No use of accessory muscles and clear to auscultation bilaterally AUSCULTATION: clear to auscultation bilaterally Cardio: COMMON NORMALS: regular rate, regular rhythm and No murmurs present (Cardio) RATE: regular rate RHYTHM: regular rhythm Extremity: COMMON NORMALS: normal to inspection and full ROM Neuro: COMMON NORMALS: patient oriented x3, moves all extremities and no focal motor deficits Psych: COMMON NORMALS: mental status grossly normal, Normal thought process present and cooperative THOUGHT PROCESS: Normal thought process present Skin: COMMON NORMALS: no rashes or lesions noted and no wounds GENERAL SKIN EXAM: no rashes or lesions noted Course 2 Vital Signs: Vital signs: Vital Signs Temperature 98.2 F 11/07/23 18:55 Pulse Rate 103 H 11/07/23 18:55 Respiratory Rate 18 11/07/23 18:55 Blood Pressure 168/103 11/07/23 18:55 Pulse Oximetry 98 11/07/23 18:55 Oxygen Delivery Me thod Room Air 11/07/23 17:17 MDM - General Adult Medical Decision Making Patient presents with hypertension its been untreated for over a year he has not yet followed up with his new PCP his blood pressures improved he had no symptoms here blood work EKG is normal we will start him on Norvasc as well is to follow- up as scheduled return if worsening he is still refusing to take Eliquis for his A-fib Medical Records I reviewed the patient's medical records. Lab Data I reviewed the patient's lab results. 11/07/23 18:08 11/07/23 18:08 Laboratory Results WBC 7.38 10^3/uL (3.29-11.43) 11/07/23 18:08 RBC 4.40 10^6/uL (3.85-5.65) 11/07/23 18:08 Hgb 13.40 g/dL (11.27-16.99) 11/07/23 18:08 Hct 40.1 % (37-53) 11/07/23 18:08 MCV 91.1 fl (82-101) 11/07/23 18:08 MCH 30.5 pg (27-33) 11/07/23 18:08 MCHC 33.4 g/dL (30-55) 11/07/23 18:08 RDW 13.9 % (12.1-15.1) 11/07/23 18:08 Plt Count 231 10^3/cmm (157-399) 11/07/23 18:08 MPV 10.2 fL (7.4-10.4) 11/07/23 18:08 Neut % (Auto) 55.3 % 11/07/23 18:08 Lymph % (Auto) 26.2 % 11/07/23 18:08 [place] % (Auto) 12.9 % 11/07/23 18:08 Eos % (Auto) 4.3 % 11/07/23 18:08 Baso % (Auto) 0.8 % 11/07/23 18:08 Neut # (Auto) 4.08 10^3/uL (1.8-7.7) 11/07/23 18:08 Lymph # (Auto) 1.9 10^3/uL (0.8-4.8) 11/07/23 18:08 [place] # (Auto) 1.0 10^3/uL (0.2-0.9) H 11/07/23 18:08 Eos # (Auto) 0.3 10^3/uL (0.0-0.8) 11/07/23 18:08 Baso # (Auto) 0.1 10^3/uL (0.0-0.1) 11/07/23 18:08 Nucleated RBC % (auto) 0 % 11/07/23 18:08 Nucleated RBCs # 0.0 /100WBC 11/07/23 18:08 Sodium 141 mmol/L (136-145) 11/07/23 18:08 Potassium 4.1 mmol/L (3.5-5.1) 11/07/23 18:08 Chloride 105 mmol/L (98-107) 11/07/23 18:08 Carbon Dioxide 25 mmol/L (22-29) 11/07/23 18:08 Anion Gap 15.1 (5-19) 11/07/23 18:08 BUN 23 mg/dL (8-23) 11/07/23 18:08 Creatinine 0.7 mg/dL (0.7-1.2) 11/07/23 18:08 GFR Calculation 112.1 mL/min (90-130) 11/07/23 18:08 Glucose 98 mg/dL (65-115) 11/07/23 18:08 Calculated Osmolality 296 mOsm/kg (285-295) H 11/07/23 18:08 Calcium 9.5 mg/dL (8.5-10.5) 11/07/23 18:08 Total Bilirubin 0.4 mg/dL (0.15-1.2) 11/07/23 18:08 AST 15 U/L (0-40) 11/07/23 18:08 ALT 11 U/L (0-41) 11/07/23 18:08 Alkaline Phosphatase 92 U/L (40-130) 11/07/23 18:08 Troponin T Baseline 15 ng/L (0-15) 11/07/23 18:08 Total Protein 6.5 g/dL (6.6-8.7) L 11/07/23 18:08 Albumin 4.0 g/dL (3.5-5.2) 11/07/23 18:08 Globulin 2.5 g/dL (1.3-4.6) 11/07/23 18:08 No radiology studies performed this visit EKG Data EKG 1: I personally reviewed and interpreted this EKG as follows: EKG interpretation date: 11/07/23 EKG interpretation time: 18:00 Interpretation: afib hr [address] or t wave abnormalities qrs 86 qtc 405 Discharge Plan Discharge Patient Disposition: Home Clinical Impression: Hypertension Qualifiers: Hypertension type: primary hypertension Qualified Code(s): I10 - Essential (primary) hypertension Condition: Stable Prescriptions: New Norvasc 10 mg tablet 10 mg PO DAILY Qty: 30 0RF No Action paliperidone palmitate 234 mg/1.5 mL syringe 234 mg IM Q30D 30 Days Qty: 1.5 1RF metoprolol succinate 50 mg tablet extended release 24 hr 50 mg PO DAILY Qty: 30 1RF Discharge Orders: Discharge ED (Routine); Ordered 11/07/23 Ordered By: Darryn Downing Discharge Diet: Advance as tolerated Discharge Activity: Resume usual activity Patient Instructions: Hypertension (ED) Coding Level of Care Code ED Interventional Technologist for Juliano Cabrales
[2023-11-07 18:31] LABS: Alanine Aminotransferase 11 U/L (0-41); Alkaline Phosphatase 92 U/L (40-130); Anion Gap 15.1 (5-19); Aspartate Amino Transferase 15 U/L (0-40); Blood Urea Nitrogen 23 mg/dL (8-23); Calcium 9.5 mg/dL (8.5-10.5); Carbon Dioxide 25 mmol/L (22-29); Chloride 105 mmol/L (98-107); Globulin 2.5 g/dL (1.3-4.6); Glomerular Filtration Rate 112.1 mL/min (90-130); Glucose 98 mg/dL (65-115); Osmolality Calculated 296 mOsm/kg (285-295); Potassium 4.1 mmol/L (3.5-5.1); Sodium 141 mmol/L (136-145); Total Bilirubin 0.4 mg/dL (0.15-1.2); Total Protein 6.5 g/dL (6.6-8.7)
[2023-11-07 18:33] LABS: Troponin(5th) Baseline 15 ng/L (0-15)
[2023-11-07 18:55] VITALS: BP 168/103; PULSE 103; RESP 18; TEMP 36.8; O2SAT 98
== END 2023-11-07 18:57 | disposition home or self-care (01) ==
PROVIDERS: Emergency Provider Emergency Medicine
DX: I10 Essential (primary) hypertension (principal); Z86.73 Personal history of transient ischemic attack (TIA), and cerebral infarction without residual deficits
CPT/HCPCS: 71045; 80053; 84484; 85025; 93005; 96374; 99285; J0360

== ENCOUNTER 2023-11-08 19:12 | Observation (INO) | payer MEDICARE, MEDICAID, SELFPAY ==
[2022-01-22 13:32] VITALS: BP 136/92; BMI 26.8
--- NOTE | 2023-11-08 19:14 | ECG_ITS ---
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 Measurements Intervals [place] Rate: 92 P: 0 [place]: 0 QRS: -42 QRSD: 93 T: 55 QT: 354 QTc: 438 Interpretive Statements ATRIAL FIBRILLATION LEFT AXIS DEVIATION [QRS AXIS < -30] Compared to ECG 11/07/2023 18:00:26 Left-axis deviation now present Electronically Signed On 11-09-2023 7:53:32 SECURITY ESCORT by Gary Casey M.D. [email or web address]/NU/[id number] f
--- NOTE | 2023-11-08 19:14 | XRR_ITS ---
PROCEDURE INFORMATION: Exam: XR Chest Exam date and time: 11/08/2023 7:33 PM Age: 68 years old Clinical indication: Pain; Chest pressure; Prior surgery; Surgery date: 6+ months; Surgery type: Cardiac stent; Additional info: Cp TECHNIQUE: Imaging protocol: Radiologic exam of the chest. Views: 1 view. COMPARISON: CR (CHEST, ) 11/07/2023 6:10 PM FINDINGS: Lungs: Stable mild elevation of the right hemidiaphragm. No focal consolidation. No pulmonary edema. Pleural spaces: No pleural effusion. No pneumothorax. Heart/Mediastinum: Stable moderate enlargement of the cardiac silhouette. Mediastinal contours are unremarkable. Vasculature: Vascular calcifications in the aorta. Bones/joints: Unremarkable for age. XR/XR chest 1V portable [id number] IMPRESSION: 1. No acute cardiopulmonary process. 2. Incidental/nonacute findings are listed in the report.
[2023-11-08 19:20] VITALS: BP 218/127; PULSE 93; RESP 17; TEMP 36.5; O2SAT 100; BMI 26.6
[2023-11-08 20:01] LABS: Basophils # 0.1 10^3/uL (0.0-0.1); Basophils % 0.8 %; Eosinophils # 0.3 10^3/uL (0.0-0.8); Eosinophils % 3.4 %; Hematocrit 43.2 % (37-53); Lymphocytes # 2.8 10^3/uL (0.8-4.8); Lymphocytes % 32.7 %; Mean Corpuscular HGB Conc 33.1 g/dL (30-55); Mean Corpuscular Hemoglobin 30.6 pg (27-33); Mean Corpuscular Volume 92.3 fl (82-101); Mean Platelet Volume 9.8 fL (7.4-10.4); Monocytes # 0.9 10^3/uL (0.2-0.9); Monocytes % 10.8 %; Neutrophils # 4.45 10^3/uL (1.8-7.7); Neutrophils % 51.8 %; Nucleated Red Blood Cells % 0 %; Platelet Count 232 10^3/cmm (157-399); Red Blood Count 4.68 10^6/uL (3.85-5.65); Red Cell Distribution Width 13.8 % (12.1-15.1); White Blood Count 8.59 10^3/uL (3.29-11.43)
[2023-11-08 20:09] VITALS: BP 228/128; PULSE 95; RESP 16; O2SAT 98
--- NOTE | 2023-11-08 20:18 | W.ED.CHESTPA ---
HPI - Chest Pain General: Chief Complaint: Chest Pain Stated Complaint: Chest pain sob Time Seen by Provider: 11/08/23 19:26 Source: patient Mode of arrival: ambulatory Limitations: no limitations History of Present Illness: 68-year-old male with a history of schizophrenia also hypertension he has been seen 3 times this week in the ER for his hypertension as he was noncompliant with his meds for years states today has been having some slight chest pain states the pain is a dull ache he rates a 2 out of 10 denies any shortness of breath denies any cough or fever. Associated symptoms: Deny abdominal pain, dyspnea, fever(s), nausea or vomiting Review of Systems Const: Denies: fever(s), chills, body aches or change in appetite ENMT: Denies: throat pain or dental pain Card: Reports: chest pain Resp: Denies: dyspnea GI: Denies: abdominal pain, nausea, vomiting or diarrhea Musc: Denies: neck pain or back pain Skin/Breast: Denies: rash Neuro: Denies: headache(s) PFSH ED PFSH: Medical History Psychiatric care Psychiatric care Polyuria BPH loc w urin obs/LUTS CVA (cerebral vascular accident) Atrial fibrillation Bipolar 1 disorder Hypertension GERD (gastroesophageal reflux disease) Surgical History S/P coronary angiogram History of surgery on arm (~2015) Family History (Updated 07/19/23 @ 10:07 by Gurinder Mendoza [facility]) Other Bipolar 1 disorder Hypertension Rheumatoid arthritis Social History Smoking and tobacco/nicotine status: never used tobacco/nicotine Second hand smoke exposure: No Alcohol intake: current Alcohol intake frequency: holidays/special occasions only Substance/Drug Use: never Adopted: No Caregiver/support person: No Lives independently: Yes Household members: none Housing: Apartment Marital status: Number of children: 2 Number of grandchildren: 4 Highest education level completed: Bachelor's Degree 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, 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 service: No Current occupational status: retired Pets and animals: No Leisure activites: other Leisure activities details: likes to run and exercise Sexually active: No Do you think of yourself as: Straight/Heterosexual Current gender identity: Male Tish/Church: Worship Special tish needs: No Agree to transfusion: Yes Physical Exam Const: COMMON NORMALS: no acute distress, patient oriented x3 and healthy appearing HENMT: COMMON NORMALS: normocephalic and atraumatic HEAD & SCALP: normocephalic and atraumatic Neck/C-Spine: COMMON NORMALS: full ROM and supple Chest: COMMONS NORMALS: normal inspection of the chest and normal palpation of entire chest wall Resp: COMMON NORMALS: normal respiratory effort, No retractions, No use of accessory muscles and clear to auscultation bilaterally AUSCULTATION: clear to auscultation bilaterally Cardio: COMMON NORMALS: regular rate and No murmurs present (Cardio) RATE: regular rate RHYTHM: abnormal rhythm irregularly irregular Extremity: COMMON NORMALS: normal to inspection and full ROM Neuro: COMMON NORMALS: patient oriented x3, moves all extremities and no focal motor deficits Psych: COMMON NORMALS: mental status grossly normal, Normal thought process present and cooperative THOUGHT PROCESS: Normal thought process present Skin: COMMON NORMALS: no rashes or lesions noted and no wounds GENERAL SKIN EXAM: no rashes or lesions noted Course Vital Signs: Vital signs: Vital Signs Temperature 97.7 F 11/08/23 19:20 Pulse Rate 74 11/08/23 22:00 Respiratory Rate 16 11/08/23 22:00 Blood Pressure 168/106 11/08/23 22:00 Pulse Oximetry 96 11/08/23 22:00 Oxygen Delivery Me thod Room Air 11/08/23 19:20 MDM - Chest Pain Medical Decision Making Patient presents here with NSTEMI along with hypertension his pain here is resolved EKGs are normal I spoke to the hospitalist and will admit at this time did give Lovenox. Medical Records I reviewed the patient's medical records. Lab Data I reviewed the patient's lab results. 11/08/23 19:49 11/08/23 19:49 Radiology Impressions Chest X-Ray 11/08/23 19:14 IMPRESSION: 1. No acute cardiopulmonary process. 2. Incidental/nonacute findings are listed in the report. Chest CTA 11/08/23 20:56 IMPRESSION: 1. No evidence for pulmonary embolism. 2. No acute cardiopulmonary process. 3. Incidental/nonacute findings are listed in the report. Laboratory Results WBC 8.59 10^3/uL (3.29-11.43) 11/08/23 19:49 RBC 4.68 10^6/uL (3.85-5.65) 11/08/23 19:49 Hgb 14.30 g/dL (11.27-16.99) 11/08/23 19:49 Hct 43.2 % (37-53) 11/08/23 19:49 MCV 92.3 fl (82-101) 11/08/23 19:49 MCH 30.6 pg (27-33) 11/08/23 19:49 MCHC 33.1 g/dL (30-55) 11/08/23 19:49 RDW 13.8 % (12.1-15.1) 11/08/23 19:49 Plt Count 232 10^3/cmm (157-399) 11/08/23 19:49 MPV 9.8 fL (7.4-10.4) 11/08/23 19:49 Neut % (Auto) 51.8 % 11/08/23 19:49 Lymph % (Auto) 32.7 % 11/08/23 19:49 [place] % (Auto) 10.8 % 11/08/23 19:49 Eos % (Auto) 3.4 % 11/08/23 19:49 Baso % (Auto) 0.8 % 11/08/23 19:49 Neut # (Auto) 4.45 10^3/uL (1.8-7.7) 11/08/23 19:49 Lymph # (Auto) 2.8 10^3/uL (0.8-4.8) 11/08/23 19:49 [place] # (Auto) 0.9 10^3/uL (0.2-0.9) 11/08/23 19:49 Eos # (Auto) 0.3 10^3/uL (0.0-0.8) 11/08/23 19:49 Baso # (Auto) 0.1 10^3/uL (0.0-0.1) 11/08/23 19:49 Nucleated RBC % (auto) 0 % 11/08/23 19:49 Nucleated RBCs # 0.0 /100WBC 11/08/23 19:49 Sodium 140 mmol/L (136-145) 11/08/23 19:49 Potassium 3.9 mmol/L (3.5-5.1) 11/08/23 19:49 Chloride 101 mmol/L (98-107) 11/08/23 19:49 Carbon Dioxide 28 mmol/L (22-29) 11/08/23 19:49 Anion Gap 14.9 (5-19) 11/08/23 19:49 BUN 24 mg/dL (8-23) H 11/08/23 19:49 Creatinine 0.8 mg/dL (0.7-1.2) 11/08/23 19:49 GFR Calculation 96.1 mL/min (90-130) 11/08/23 19:49 Glucose 128 mg/dL (65-115) H 11/08/23 19:49 Calculated Osmolality 296 mOsm/kg (285-295) H 11/08/23 19:49 Calcium 9.7 mg/dL (8.5-10.5) 11/08/23 19:49 Total Bilirubin 0.4 mg/dL (0.15-1.2) 11/08/23 19:49 AST 19 U/L (0-40) 11/08/23 19:49 ALT 11 U/L (0-41) 11/08/23 19:49 Alkaline Phosphatase 110 U/L (40-130) 11/08/23 19:49 Troponin T Baseline 20 ng/L (0-15) H 11/08/23 19:49 Troponin T 120 Minute 51.16 ng/L (0-15) H 11/08/23 21:09 Delta Troponin T 31.16 ABS# (0-10) H* 11/08/23 21:09 NT-Pro-B Natriuret Pep 592 pg/mL (0-125) H 11/08/23 19:49 Total Protein 7.2 g/dL (6.6-8.7) 11/08/23 19:49 Albumin 4.3 g/dL (3.5-5.2) 11/08/23 19:49 Globulin 2.9 g/dL (1.3-4.6) 11/08/23 19:49 All radiology interpretation(s) finalized by discharge EKG Data EKG 1: I personally reviewed and interpreted this EKG as follows: EKG interpretation date: 11/08/23 EKG interpretation time: 19:17 Interpretation: afib hr [address] or t wave abnormalities qrs 93 qtc 403 Discharge Plan Discharge Patient Disposition: Placed in Observation Clinical Impression: Non-ST elevation MN (NSTEMI), Atrial fibrillation Hypertension Qualifiers: Hypertension type: primary hypertension Qualified Code(s): I10 - Essential (primary) hypertension Coding Level of Care Code ED Commodities Trader for Andreag Keron
[2023-11-08] MEDS: labetalol 5 mg/mL SDV 20mL 20 MG IVP (20:20)
[2023-11-08 20:23] LABS: Troponin(5th) Baseline 20 ng/L (0-15)
[2023-11-08 20:37] LABS: Alanine Aminotransferase 11 U/L (0-41); Albumin Level 4.3 g/dL (3.5-5.2); Alkaline Phosphatase 110 U/L (40-130); Aspartate Amino Transferase 19 U/L (0-40); Blood Urea Nitrogen 24 mg/dL (8-23); Calcium 9.7 mg/dL (8.5-10.5); Carbon Dioxide 28 mmol/L (22-29); Chloride 101 mmol/L (98-107); Globulin 2.9 g/dL (1.3-4.6); Glomerular Filtration Rate 96.1 mL/min (90-130); Glucose 128 mg/dL (65-115); NT Pro B Type Natriuretic Pept 592 pg/mL (0-125); Osmolality Calculated 296 mOsm/kg (285-295); Sodium 140 mmol/L (136-145); Total Bilirubin 0.4 mg/dL (0.15-1.2); Total Protein 7.2 g/dL (6.6-8.7)
[2023-11-08 20:40] VITALS: BP 155/103; BP 167/102; PULSE 65; RESP 16; O2SAT 96
[2023-11-08 20:49] LABS: Anion Gap 14.9 (5-19); Potassium 3.9 mmol/L (3.5-5.1)
--- NOTE | 2023-11-08 20:56 | CTR_ITS ---
PROCEDURE INFORMATION: Exam: CTA Chest With Contrast Exam date and time: 11/08/2023 9:24 PM Age: 68 years old Clinical indication: Pain; Chest pressure; Additional info: Cp TECHNIQUE: Imaging protocol: Computed tomographic angiography of the chest with contrast. Exam focused on the arteries. 3D rendering (Not supervised by radiologist): MIP and/or 3D reconstructed images were created by the technologist. Radiation optimization: All CT scans at this facility use at least one of these dose optimization techniques: automated exposure control; mA and/or kV adjustment per patient size (includes targeted exams where dose is matched to clinical indication); or iterative reconstruction. Contrast material: OMNI 350; Contrast volume: 100 ml; Contrast route: INTRAVENOUS (IV); COMPARISON: CR (CHEST, ) 11/08/2023 7:33 PM RADIATION DOSE METRICS: Total DLP (mGy-cm): 541 FINDINGS: Pulmonary arteries: No filling defects in the pulmonary arteries to suggest pulmonary embolism. Aorta: Mild atherosclerotic changes in the visualized arteries. No evidence for aortic aneurysm. Evaluation for aortic dissection is limited due to the phase of contrast-enhancement. Trachea: Tracheobronchial structures are patent. Lungs: There is linear scarring in the right and left lower lobes. Lungs are clear bilaterally. No pulmonary parenchymal nodules or masses. Pleural spaces: No pneumothorax. No pleural effusion. Heart: Stable moderate enlargement of the heart. Coronary arteries: Moderate atherosclerotic calcification in the coronary arteries. Esophagus: The esophagus is unremarkable. Mediastinal space: No mediastinal hematoma. No pneumomediastinum. Lymph nodes: No lymphadenopathy. Liver: Multiple calcified granulomas in the visualized liver. Gallbladder and bile ducts: The gallbladder is unremarkable. No dilatation of the visualized bile ducts. Pancreas: Moderate atrophy of the visualized pancreatic parenchyma. Spleen: The spleen is unremarkable. Adrenal glands: The right and left adrenal glands are unremarkable. Kidneys and ureters: The visualized right and left kidneys are unremarkable. Bones/joints: Degenerative changes in the spine and hips. Soft tissues: The extrathoracic soft tissues are unremarkable. CT/CT angio chest PE protcl [id number] IMPRESSION: 1. No evidence for pulmonary embolism. 2. No acute cardiopulmonary process. 3. Incidental/nonacute findings are listed in the report.
[2023-11-08 21:12] VITALS: BP 149/111; PULSE 65; RESP 16; O2SAT 98
[2023-11-08 21:36] LABS: Troponin 5 2HR 51.16 ng/L (0-15)
[2023-11-08 21:40] LABS: Troponin 5 2HR Delta 31.16 ABS# (0-10)
--- NOTE | 2023-11-08 21:46 | ECG_ITS ---
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 Measurements Intervals [place] Rate: 67 P: 0 [place]: 0 QRS: 109 QRSD: 95 T: 24 QT: 398 QTc: 421 Interpretive Statements ATRIAL FIBRILLATION RIGHT AXIS DEVIATION [QRS AXIS > 100] Compared to ECG 11/07/2023 18:00:26 No significant changes Electronically Signed On 11-08-2023 21:52:30 GOVERNMENT RELATIONS DIRECTOR by Nicki Teresa M.D. [email or web address] [email or web address] medical specialty hospital - [email or web address]/[id number]
[2023-11-08] MEDS: iohexol 350 mg/mL 500 mL Btl (per mL) IV (21:48)
[2023-11-08 22:00] VITALS: BP 168/106; PULSE 74; RESP 16; O2SAT 96
[2023-11-08] MEDS: hyDRALAzine 20 mg/mL INJ 1 mL 10 MG IVP (22:07)
[2023-11-08] MEDS: enoxaparin 100 mg/mL Syringe SUBCUT (22:08)
--- NOTE | 2023-11-08 22:08 | P.HP_ITS ---
Providers/Chief Complaint 2 Chief Complaint: Chest pain sob History of Present Illness Kirby Whitehead is a 68 year old male with history of hypertension, schizophrenia, A-fib, who is currently living in his van stating that he has not been able to find an apartment he was evicted from [facility], has history of hypertension, recently has had multiple visits in the ER, today he was having chest pain that prompted his visit to the ER. Patient stating that he was at the [facility] picking up his second medication for blood pressure which was prescribed from the ER when he started experiencing chest pain when he noticed that his blood pressure was 200/160mmhg, he is describing his pain as pressure- like sensation which lasted for about couple of hours, it did not radiate anywhere, no nausea, vomiting or diaphoresis. He does not carry any history of coronary disease. In the ER he was diagnosed with hypertensive emergency with troponin leak without any significant EKG changes however because of delta troponin he was admitted to the [facility], I have given him ACS protocol medications Will require stress test, he is chest pain-free at the time of my evaluation Bedside echo showed preserved ejection fraction, mild MR, LAD, he is in A-fib without RVR, previously patient was reluctant to take any anticoagulating agent for his A-fib however now he is amenable to start Please note patient is living in his van with comfortable, sleeping back in multiple layers of blankets, his daughters are in [place], he does not have any medical DPOA, he is full code, after being discharged from the hospital his plans to go back in his van, he will need case management in the morning Review of Systems 2 Const: Denies: fever(s) Eyes: Denies: change in vision ENMT: Denies: throat pain Card: Reports: chest pain; Denies: dyspnea on exertion Resp: Denies: dyspnea GI: Denies: abdominal pain : Denies: flank pain Musc: Denies: neck pain Skin/Breast: Denies: rash Medications/Allergies Home Medications Medication Instructions Recorded Confirmed Last Taken Type paliperidone palmitate 234 mg/1.5 234 mg (1.5 mL) IM Q30D 30 days 11/02/23 11/02/23 Unknown Rx mL intramuscular syringe #1.5 mL metoprolol succinate 50 mg 50 mg PO DAILY #30 tabs 11/04/23 Unknown Rx tablet,extended release 24 hr amlodipine 10 mg tablet (Norvasc) 10 mg PO DAILY #30 tabs 11/07/23 Unknown Rx Allergies Allergy/AdvReac Type Severity Reaction Status Date / Time No Known Allergies Allergy Verified 09/01/23 13:47 PFSH Acute 2 PFSH: Medical History Psychiatric care Psychiatric care Polyuria BPH loc w urin obs/LUTS CVA (cerebral vascular accident) Atrial fibrillation Bipolar 1 disorder Hypertension GERD (gastroesophageal reflux disease) Surgical History S/P coronary angiogram History of surgery on arm (~2015) Family History Other Bipolar 1 disorder Hypertension Rheumatoid arthritis Social History Smoking and tobacco/nicotine status: never used tobacco/nicotine Second hand smoke exposure: No Alcohol intake: current Alcohol intake frequency: holidays/special occasions only Substance/Drug Use: never Adopted: No Caregiver/support person: No Lives independently: Yes Household members: none Housing: Apartment Marital status: Number of children: 2 Number of grandchildren: 4 Highest education level completed: Bachelor's Degree 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, 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 service: No Current occupational status: retired Pets and animals: No Leisure activites: other Leisure activities details: likes to run and exercise Sexually active: No Do you think of yourself as: Straight/Heterosexual Current gender identity: Male Tish/Worship: Quaker Special tish needs: No Agree to transfusion: Yes Vitals/I&O/Wt Last Vital Signs Temp 97.7 F 11/08/23 19:20 Pulse 74 11/08/23 22:00 Resp 16 11/08/23 22:00 BP 168/106 11/08/23 22:00 Pulse Ox 96 11/08/23 22:00 O2 Del Method Room Air 11/08/23 19:20 Weight last 48 hrs Weight 102.058 kg Physical Exam 2 Narrative: Pleasant cooperative Masked facies Awake and alert GCS 15 No active chest pain S1, S2 Hemodynamically stable A-fib without RVR Abdomen soft Euvolemic Data 11/08/23 19:49 11/08/23 19:49 A&P Assessment and plan (1) Schizophrenia, paranoid: (2) Schizoaffective disorder: Qualifiers: Schizoaffective disorder type: bipolar Qualified Code(s): F25.0 - Schizoaffective disorder, bipolar type (3) Hypertension: Qualifiers: Hypertension type: primary hypertension Qualified Code(s): I10 - Essential (primary) hypertension (4) Non-ST elevation CT (NSTEMI): (5) Atrial fibrillation: Qualifiers: Atrial fibrillation type: unspecified Qualified Code(s): I48.91 - Unspecified atrial fibrillation (6) GERD (gastroesophageal reflux disease): Qualifiers: Esophagitis presence: without esophagitis Qualified Code(s): K21.9 - Gastro-esophageal reflux disease without esophagitis (7) BPH loc w urin obs/LUTS: Plan Non-STEMI Delta troponin is significant will rule him in for non-STEMI Will give him aspirin and Plavix loading dose Start therapeutic Lovenox Stress test in the morning I do believe his troponin leak is secondary to hypertensive emergency I will give him chlorthalidone, amlodipine, lisinopril and metoprolol Will ask for drug screen as well Request echo TSH Will keep him n.p.o. until stress test Full code Patient will need homeless senior living will consult case management No active exacerbation/decompensation of underlying schizoaffective disorder A-fib without RVR patient will need Eliquis at the time of discharge I will give him metoprolol for rate control Attestations 2 Medical Necessity Statement*: Anticipating discharge within 48 hours Diagnoses Schizophrenia, paranoid F20.0 Schizoaffective disorder, bipolar type F25.0 Schizoaffective disorder type: bipolar Essential hypertension I10 Hypertension type: primary hypertension Non-ST elevation CT (NSTEMI) I21.4 Atrial fibrillation, unspecified type I48.91 Atrial fibrillation type: unspecified Gastroesophageal reflux disease without esophagitis K21.9 Esophagitis presence: without esophagitis BPH loc w urin obs/LUTS N40.1
--- NOTE | 2023-11-08 22:26 | USCV_ITS ---
Kirby Whitehead Age: 68 Gender: M : 1955 Exam Date: 11/08/2023 23:52 Ordering Phys: Ofe Najera MD Technologist: JESSICA Exam Location: [facility] [place] Indication: Unstable Angina. History of atrial fibrillation. Hx HTN. Hx cardiac stent 2012. BP: 168 / 106 HR: 62 Rhythm: Atrial fibrillation Technical Quality: Adequate MEASUREMENTS (Male / Female) Normal Values 2D ECHO LV Diastolic Diameter PLAX 4.1 cm 4.2 - 5.9 / 3.9 - 5.3 cm LV Systolic Diameter PLAX 3.0 cm IVS Diastolic Thickness 1.5 cm 0.6 - 1.0 / 0.6 - 0.9 cm IVS Systolic Thickness 1.9 cm LVPW Diastolic Thickness 1.7 cm 0.6 - 1.0 / 0.6 - 0.9 cm LVPW Systolic Thickness 1.6 cm LVOT Diameter 2.3 cm LV Ejection Fraction 2D Teich 54.6 % LV Ejection Fraction MOD 2C 56.6 % LV Ejection Fraction 2C AL 58.5 % LA Diameter 5.8 cm LA Width 4.8 cm LA Height 6.8 cm RA Width 4.6 cm RA Height 5.6 cm Aorta at Sinotubular Diameter 3.7 cm IVC Diameter 1.0 cm M-MODE Aortic Annulus Diameter 3.7 cm LA Ao Ratio MM 1.6 MV E Point Septal Separation 0.0 cm DOPPLER AV Peak Velocity 97.0 cm/s LVOT Peak Velocity 84.0 cm/s AV Area Cont Eq vti 3.1 cm squared AV Area Cont Eq pk 3.6 cm squared MV Peak Velocity 110.0 cm/s MV Area PHT 3.5 cm squared MV E' Velocity 57.5 cm/s Mitral E to MV E' Ratio 7.0 Mitral E to LV E' Lateral Ratio 6.1 Mitral E to LV E' Septal Ratio 8.2 TV Peak E Velocity 50.0 cm/s PV Peak Velocity 76.0 cm/s RV Acceleration Time 0.1 s RV Ejection Time 0.3 s RV AcT/ET 0.3 FINDINGS Left Ventricle Left ventricle is normal in size. LV systolic function is normal with EF of 55-60%. No regional wall motion abnormalities are seen. Right Ventricle Normal in size and function Right Atrium Normal in size Left Atrium Dilated Mitral Valve Structurally normal aortic mitral valve. Mild mitral regurgitation. Aortic Valve Aortic valve is thickened. No significant stenosis. Tricuspid Valve Mild tricuspid regurgitation. Insufficient TR jet to calculate RVSP Pulmonic Valve Not well visualized Pericardium Normal Aorta Ascending aorta is dilated IVC Normal CONCLUSIONS LV systolic function is normal with EF of 55-60% Left atrium is dilated Mild mitral regurgitation Mild tricuspid regurgitation. Ascending aorta is dilated. Compared to prior echocardiogram from 2020, no significant changes are seen Gary Casey MD (Electronically Signed) Final Date: 09 November 2023 19:15 S
[2023-11-08 22:30] VITALS: BMI 27.1
[2023-11-08 22:59] LABS: D Dimer 0.51 ug/mLFEU (0-0.59)
[2023-11-08 23:03] LABS: Estmated Average Glucose 111; Hemoglobin A1C 5.5 % (4.0-6.0)
[2023-11-08 23:19] LABS: Thyroid Stimulating Hormone 3.42 uIU/mL (0.27-4.20)
[2023-11-08] MEDS: aspirin 325 mg EC Tablet PO (23:58)
[2023-11-08] MEDS: clopidogrel 300 mg Tablet PO (23:59)
[2023-11-09] VITALS (14 sets, daily range): BP systolic 94–151; BP diastolic 70–83; PULSE 66–90; RESP 10–21; TEMP 36.4–36.6; O2SAT 95–100; BMI 27.1
[2023-11-09 01:56] LABS: Anion Gap 15.3 (5-19); Blood Urea Nitrogen 23 mg/dL (8-23); Calcium 9.6 mg/dL (8.5-10.5); Carbon Dioxide 24 mmol/L (22-29); Chloride 104 mmol/L (98-107); Glomerular Filtration Rate 112.1 mL/min (90-130); Glucose 112 mg/dL (65-115); Magnesium 1.9 mg/dL (1.7-2.3); Osmolality Calculated 292 mOsm/kg (285-295); Potassium 4.3 mmol/L (3.5-5.1); Sodium 139 mmol/L (136-145); Troponin 5 6HR 299.1 ng/L (0-15); Troponin 5 6HR Delta 279.1 ng/L (0-12)
[2023-11-09] MEDS: lisinopril 20 mg Tablet PO ×2 (02:00→09:13)
--- NOTE | 2023-11-09 04:24 | PC.NURSE ---
Patient had an episode of asymptomatic v.tach/v.fib. Doctor notified of arrhythmia. Orders to continue with Metoprolol 25mg BID were given.
[2023-11-09 07:12] LABS: Amphetamines Screen Urine Negative (Negative); Barbiturates Screen Urine Negative (Negative); Benzodiazepines Screen Urine Negative (Negative); Cocaine Screen Urine Negative (Negative); Opiate Screen Urine Negative (Negative); PCP Screen Urine Negative (Negative); THC Screen Urine Negative (Negative)
[2023-11-09] MEDS: amlodipine 10 mg Tablet PO (09:13)
[2023-11-09] MEDS: clopidogrel 75 mg Tablet PO (09:13)
[2023-11-09] MEDS: atorvastatin 40 mg Tablet 80 MG PO (09:14)
[2023-11-09] MEDS: aspirin 81 mg EC Tablet PO (09:17)
--- NOTE | 2023-11-09 09:42 | SUR.PREOP ---
STRESS CXL Notified by nuclear medicine. The doctor cancelled the stress test and consulting cardiology for potential cath.
--- NOTE | 2023-11-09 10:22 | P.CONIM_ITS ---
Providers/Reason For Consult 2 Consulting Physician/Specialty*: Gary Casey MD/ Cardiology Reason for Consult*: NSTEMI Requesting Physician: Dr Mathur Attending Physician: Sofie Mathur MD History of Present Illness History of Present Illness Kirby Whitehead is a 68 year old male with past medical history of CAD and prior stent, hyperlipidemia, hypertension who presented to hospital with chest discomfort. It was substernal. He says he has been having dull ache for several weeks. His troponins trended up significantly from 31 at baseline to 300 at 6 hours. EKG shows nonspecific ST-T wave changes. He was hypertensive at time of admission. Review of Systems 2 Const: Denies: fever(s) Eyes: Denies: change in vision ENMT: Denies: throat pain Card: Reports: chest pain; Denies: dyspnea on exertion Resp: Denies: dyspnea GI: Denies: abdominal pain : Denies: flank pain Musc: Denies: neck pain Skin/Breast: Denies: rash Medications/Allergies Home Medications Medication Instructions Recorded Confirmed Last Taken Type paliperidone palmitate 234 mg/1.5 234 mg (1.5 mL) IM Q30D 30 days 11/02/23 11/09/23 Unknown Rx mL intramuscular syringe #1.5 mL metoprolol succinate 50 mg 50 mg PO DAILY #30 tabs 11/04/23 11/09/23 11/08/23 Rx tablet,extended release 24 hr amlodipine 10 mg tablet (Norvasc) 10 mg PO DAILY #30 tabs 11/07/23 11/09/23 11/08/23 Rx Allergies Allergy/AdvReac Type Severity Reaction Status Date / Time No Known Allergies Allergy Verified 09/01/23 13:47 Current Medications Generic Name Dose Route Start Last Admin Trade Name Freq PRN Reason Stop Dose Admin Amlodipine Besylate 10 mg 11/09/23 09:00 11/09/23 09:13 Amlodipine 10 Mg Tablet PO 10 mg DAILY MARIN Administration Aspirin 81 mg 11/09/23 09:00 11/09/23 09:17 Aspirin 81 Mg Ec Tablet PO 81 mg DAILY MARIN Administration Atorvastatin Calcium 80 mg 11/09/23 09:00 11/09/23 09:14 Atorvastatin 40 Mg Tablet PO 80 mg DAILY MARIN Administration Chlorthalidone 12.5 mg 11/09/23 09:00 11/09/23 09:07 Chlorthalidone 25 Mg Tablet PO Not Given DAILY MARIN Clopidogrel Bisulfate 75 mg 11/09/23 09:00 11/09/23 09:13 Clopidogrel 75 Mg Tablet PO 75 mg DAILY [facility] Administration Lisinopril 20 mg 11/09/23 09:00 11/09/23 09:13 Lisinopril 20 Mg Tablet PO 20 mg DAILY MARIN Administration Metoprolol Tartrate 25 mg 11/09/23 09:00 11/09/23 09:07 Metoprolol Tartrate 25 Mg Tablet PO Not Given BID@0900,2100 MARIN PFSH Acute 2 PFSH: Medical History Psychiatric care Psychiatric care Polyuria BPH loc w urin obs/LUTS CVA (cerebral vascular accident) Atrial fibrillation Bipolar 1 disorder Hypertension GERD (gastroesophageal reflux disease) Surgical History S/P coronary angiogram History of surgery on arm (~2015) Family History Other Bipolar 1 disorder Hypertension Rheumatoid arthritis Social History Smoking and tobacco/nicotine status: never used tobacco/nicotine Second hand smoke exposure: No Alcohol intake: current Alcohol intake frequency: holidays/special occasions only Substance/Drug Use: never Adopted: No Caregiver/support person: No Lives independently: Yes Household members: none Housing: Apartment Marital status: Number of children: 2 Number of grandchildren: 4 Highest education level completed: Bachelor's Degree Education level details: [employer] and 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 engineering, 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 service: No Current occupational status: retired Pets and animals: No Leisure activites: other Leisure activities details: likes to run and exercise Sexually active: No Do you think of yourself as: Straight/Heterosexual Current gender identity: Male Tish/Taoism: Buddhist Special tish needs: No Agree to transfusion: Yes Vitals/I&O/Wt Last Vital Signs Temp 97.8 F 11/09/23 00:40 Pulse 72 11/09/23 07:14 Resp 21 H 11/09/23 07:14 BP 151/76 11/09/23 07:14 Pulse Ox 96 11/09/23 07:14 O2 Del Method Room Air 11/09/23 07:14 11/08/23 11/09/23 11/09/23 22:59 06:59 14:59 Intake Total 480 / 480 Output Total 775 / 775 Balance -775 / -775 480 / 480 Weight last 48 hrs Weight 229 lb Weight 229 lb Weight 229 lb 3 oz Weight 225 lb Physical Exam 2 Narrative: GENERAL: Patient is alert, awake and oriented x3. [] NECK: No jugular vein distension. [] HEENT: No cyanosis. No icterus. No pallor. [] HEART: Regular S1 and S2. No murmur, rub or gallop. [] LUNGS: Clear to auscultate bilaterally. [] CENTRAL NERVOUS SYSTEM: Grossly nonfocal. [] EXTREMITIES: Lower extremities with 1+ edema bilaterally Data 11/10/23 03:37 11/10/23 03:37 A&P Assessment and plan (1) Non-ST elevation CT (NSTEMI): (2) Atrial fibrillation: (3) Hyperlipidemia: Qualifiers: Hyperlipidemia type: mixed hyperlipidemia Qualified Code(s): E78.2 - Mixed hyperlipidemia (4) Hypertension: Qualifiers: Hypertension type: primary hypertension Qualified Code(s): I10 - Essential (primary) hypertension Plan Patient has presented with hypertensive urgency. However his symptoms are typical for CAD and has a significant CAD history. Troponins trended up significantly. Will treat as non-ST elevation CT. Continue anticoagulation. Continue dual antiplatelet therapy. He has psychiatric history I had a detailed discussion. He is motivated to continue with medical therapy. We will proceed with coronary angiogram with possible percutaneous coronary intervention. N.p.o. for now. Echocardiogram ordered. Thank you for involving us with care of this patient. We will continue to follow. Please call with questions. Consult Attestations 2 Medical Necessity Statement: Care expected to cross 2 midnights. Coding Level of Care Code Acute Code for [facility] Diagnoses Non-ST elevation CT (NSTEMI) I21.4 Atrial fibrillation I48.91 Mixed hyperlipidemia E78.2 Hyperlipidemia type: mixed hyperlipidemia Essential hypertension I10 Hypertension type: primary hypertension
--- NOTE | 2023-11-09 10:29 | PC.CHAP ---
Pastoral Care Encounter/Spiritual Assessment Type of Contact [] Declined platform engineer visit [] Patient/Family/Request visit [] Outpatient visit [] Follow-up visit [] Physician referral [] Code/Alert [x] Routine visit [] Staff referral [] Actively dying [] Patient sleeping [] Family support [] [] Out of room [] Palliative care [] [] Receiving care in room [] Pre-surgical visit [] Trauma [] Long length of stay [] ICU visit [] Other: Relational/Emotional Strength [x] Patient feels connected with others/family/visitors/staff [] Distress [] Loneliness/isolation [] Abandonment Spirituality of Patient [] Person of Tish [] Attends Tenriism of their Tish [] Believes in Prayer [] Reads Bible or Confucianist materials [] There are Spiritual issues to be addressed Hide Grader Interventions [x] Prayer [] Active listening [] Non-anxious presence [] Spiritual/emotional support [] Crisis/trauma care [] Spiritual counseling [] Bereavement support [] Provided bereavement packet [] Provided Bible/devotional materials [] Provided toy/stuffed animal, coloring book to patient or family member [] Provided Communion [] Anointing/[place] [] Salvation [] Completed spiritual assessment [] Other: Impact on Illness or Injury [] Angry [] Fearful [] Anxious [] Often cries [] Exhaustion [] Unable to work [] Unable to attend christianity [] Unable to walk/stand [] Unable to read [] Unable to drive [] Unable to eat/drink [] Unable to sleep [] Unable to be with family [] Patient intubated [] Other: Summary Time spent with patient 15 min
--- NOTE | 2023-11-09 10:34 | XACV_ITS ---
Exam Room: [facility] Ht: 196 cm Wt: 104 kg BSA: 2.39 m2 Gender: Male : 1955 Any Known Allergies: No known allergies Exam Priority: Routine Indication(s): - Non-ST elevation Procedure(s): Procedure Description: Diagnostic procedure Procedure Description: PCI procedure Procedure Description: Drug Eluting Coronary Stent Procedure Description: PTCA Procedure Description: Miscellaneous Procedure Description: ACT Procedure Description: Coronary Angiography Diagnostic Cath Status: Urgent Diagnostic Findings * Proximal to mid Right Coronary Artery: severe 95% stenosis, JULIANNE: 2 flow. * Left Main has no significant disease. * Left Anterior Descending has patent prior stent with minimal in-stent restenosis. * Circumflex has no significant disease. Small sized OM 1 branch has a 90% stenosis.. * Ramus intermedius artery: Has severe 80% proximal stenosis. * Coronary angiography shows right dominance. PCI Status: Urgent PCI Indication: NSTE - ACS Interventional Findings * Procedure detail: * We engaged RCA with JR4 guide catheter. IV heparin was administered to maintain anticoagulation. 0.014 run-through guidewire was used to cross the * critical * proximal to mid RCA stenosis and was put in distal vessel. * We then predilated the stenosis with 2.5 x 12 mm semicompliant balloon. This was followed by placement of 3.0 x 18 mm resolute Dowell drug-eluting stent with support from guide liner. We attempted to postdilated stent with NC balloon however it could not be advanced secondary to lack of support. We used AL 0.75 guide and guide liner however it could not be delivered. As stent was well-expanded and patient had JULIANNE-3 flow. We decided to abort further attempts at post dilation of the stent. Patient left the Rail Layer in a stable condition. Plan for staged PCI of ramus intermedius artery in 2 to 3 weeks.. * Proximal to Right Coronary Artery: 95% stenosis treated with a AB TREK 2.50X12 RX BALLOON, and MDT R OBIE 3.0X18 CARMELO. 0% residual stenosis, JULIANNE: 3 flow. Conclusions 1. Critical proximal to mid RCA stenosis s/p successful revascularization with 1 stent. . 2. Severe proximal ramus intermedius artery stenosis. We will perform staged PCI in 2 to 3 weeks. 3. Proximal Right Coronary Artery was treated with a Balloon, and Drug Eluting Stent. Recommendations * Dual antiplatelet therapy with aspirin and plavix for atleast 1 year. * High intensity statin therapy. * Outpatient cardiology follow up in 4 weeks. * Staged PCI of ramus artery in 2-3 weeks. Interventional RX Recommendation: PCI w/o planned CABG Diagnostic RX Recommendation: PCI w/o planned CABG Pressures Phase:Rest AO : 83 / 65 ( 74 ) @ 11:19:00 AM 94 / 68 ( 80 ) @ 11:27:00 AM 93 / 67 ( 80 ) @ 11:32:00 AM 101 / 70 ( 87 ) @ 11:42:00 AM 111 / 78 ( 94 ) @ 11:49:00 AM 89 / 62 ( 73 ) @ 12:00:00 PM Clinical Evaluation EBL: 5mL-10mL Procedural Details Procedure Consent Obtained. Admit Source: In Patient. Pre-Procedure Time Out. Identified patient by full name and date of as verbalized by the patient/guarantor. Does the consent match the physician's order: Yes. Accurate & Complete Informed Consent: Yes. Inpatient/Outpatient History & Physical on Chart: Yes. If H&P is completed, is and addenduem needed: No; If yes, is the addendum complete: N/A. Visualize and Verify Site with Patient/Guarantor: N/A. Relevant Radiology Images available: N/A. Pre-op teaching completed and patient verbalized understanding. The risks, benefits, and alternatives of sedation and/or procedure were discussed by physician. The patient agrees to continue. Procedure started. [facility] Clinical Fraility Score: 3: Managing Well. Rail Layer Indications: Worsening Angina. Chest Pain Symptom Assessment: Typical Angina Symptoms. Cardiovascular Instability: No, if yes, Persistant Ischemic Symptoms. Cardiovascular Instability: Yes, if yes, Persistant Ischemic Symptoms. Correct patient, site and procedure confirmed by cath team. Current diagnosis: NSTEMI. PERRLA. Strong, equal hand geriatric personal care aide bilaterally. Lungs clear x 5 lobes. IV Site on Arrival: 20 gauge in the right anticubital. IV Site on Arrival: 20 gauge in the right hand. IV Fluids: 0.9% NaCl at KVO. 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 Pre Procedural Pulses: right radial was 2+. Pre Procedural Pulses: bilateral dorsalis pedis was 2+. Oxygen started at 2liters/min via nasal canula. right groin was prepped with chloroprep then draped in the usual sterile fashion. left radial was prepped with chloroprep then draped in the usual sterile fashion. Baseline sample Acquired. HR: 64 BPM. Physician notified. Physician arrived. Physician scrubbed in. Immediate Pre-Procedure Time Out. Correct Patient: Yes; Correct Procedure: Yes; Correct Site: Yes; Correct Patient Position: Yes; Correct Supplies: Yes; Dried Flammable Prep: Yes; Blood Products Available: N/A;. Lidocaine 1% infiltrated to the right radial. Arterial access obtained. A 5 northern irish TIG catheter in over wire. Multiple views taken of left coronary artery. Catheter redirected to the RCA. Catheter removed over the exchange wire. Current Diagnosis : NSTEMI. A 5 northern irish JR4 catheter in over wire. Multiple views taken of right coronary artery. Catheter removed over the exchange wire. 6 northern irish JR 4 guide catheter was inserted over the wire. Runthrough guidewire was advanced through the guide catheter to lesion in the prox RCA. Balloon inserted to lesion in the prox RCA. Inflation number : 1 A AB TREK 2.50X12 RX BALLOON was prepped and advanced across the Prox RCA , then inflated to 8 MCKENNA for 0:15 seconds. Balloon out. Guideliner inserted for catheter support. Stent inserted to lesion in the prox RCA. Inflation Number : 2 A AMANDA Painter OBIE 3.0X18 CARMELO -Lot Number# [id number] Exp was prepped and advanced across the Prox RCA. The stent was deployed at 12 MCKENNA for 0:20 seconds. Stent balloon out over wire. Guideliner out. Results checked. Results checked. Balloon inserted to lesion in the prox RCA. Intact Balloon out. Guideliner inserted. Balloon inserted to lesion in the prox RCA. Guideliner and intact balloon out over wire. Guide catheter and wire out. ACT drawn. Results 315 seconds. Therapeutic limits - pre-heparin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 90-150 seconds and monitoring heparin during a vascular procedure >250 seconds. 6 northern irish AL 0.75 guide catheter was inserted over the wire. Runthrough guidewire was advanced through the guide catheter to lesion in the prox RCA. Balloon inserted to lesion in the prox RCA. Balloon out. 2nd Runthrough guidewire was advanced through the guide catheter to lesion in the prox RCA. Balloon inserted to lesion in the prox RCA. Intact balloon out over wire. 1st Runthrough removed. Guidliner catheter inserted. Balloon inserted to lesion in the prox RCA. Intact balloon out over wire. Balloon inserted to lesion in the prox RCA. Intact balloon out over wire. Guideliner out. ACT drawn. Results 321 seconds. Therapeutic limits - pre-heparin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 90-150 seconds and monitoring heparin during a vascular procedure >250 seconds. Guide catheter and wire out. Physician scrubbed out. A TR Band was successful obtaining hemostatsis at the Right Radial artery insertion site. Post Procedure: Pulses reassessed and unchanged. PERRLA. Strong, equal hand geriatric personal care aide bilaterally. No VTE prophylaxis required. Medication's Wasted: Nitro = 49.6 mg. Medication's Wasted: Lidocaine 1% = 2 mL. Medication's Wasted: Other = Fentanyl 50 mcg. Total IV fluids: 320 mL. PCI Indication: NSTE. Post-op diagnosis: Severe RCA CAD S/P successful stenting x 1. Complications: none. Estimated blood loss: 5mL-10mL. Responsiveness - Normal response to verbal stimuli; alert and oriented, PERRLA. Airway - Unaffected, no intervention required; spontaneous ventilation. Circulation: W/N/L, pulses unchanged. Nausea/Vomiting: No. Procedure completed. Patient transferred by bed to 1st floor. Access Site Site: Right Radial artery Sheath Size: 6 Fr Hemostasis Method: TR Band Hemostasis Success: Successful Procedure Medications Start: 11:09 AM Stop: 11:09 AM Medication: Versed Amount: 1 mg Route: I.V. Start: 11:09 AM Stop: 11: AM Medication: Fentanyl Amount: 50 mcg Route: I.V. Start: 11:13 AM Stop: 11:13 AM Medication: Nitrogylcerin Amount: 200 mcg Route: I.A. Start: 11:15 AM Stop: 11:15 AM Medication: Heparin Amount: 5000 units Route: I.V. Start: 11:26 AM Stop: 11:26 AM Medication: Heparin Amount: 5000 units Route: I.V. Start: 11:30 AM Stop: 11:30 AM Medication: 0.9% Saline Amount: 250 ml Route: I.V. bolus Start: 11:48 AM Stop: 11:48 AM Medication: Heparin Amount: 1000 units Route: I.V. Start: 11:56 AM Stop: 11:56 AM Medication: Nitrogylcerin Amount: 200 mcg Route: I.A. Start: 11:58 AM Stop: 11:58 AM Medication: Versed Amount: 1 mg Route: I.V. Start: 12:10 PM Stop: 12:10 PM Medication: Nitrogylcerin Amount: 200 mcg Route: I.A. I, the attending physician, have reviewed and verified all procedure medications. Yes, all medications given per verbal order History/Risk Factors Hypertension: Yes Dyslipidemia: No Peripheral Arterial Disease (PAD): No Myocardial Infarction (ME): No Obesity: No Renal Disease: No Tobacco Use: Never Prior Interventions PCI: No CABG: No Valve Surgery: No Report Signatures Finalized by Gary Casey MD on 11/13/2023 02:18 PM
--- NOTE | 2023-11-09 10:57 | PC.NURSE ---
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
--- NOTE | 2023-11-09 11:04 | W.PM.OPSUD ---
Surgery/Procedure H&P Update DATE OF PROCEDURE: November 09, 2023 DATE H&P PERFORMED: 11/09/23 H&P UPDATE INFORMATION: I have reviewed H&P completed within last 30 days, I have examined patient prior to procedure and No changes to prior documentation PREOP DIAGNOSIS: NSTEMI PRIMARY INDICATION FOR PROCEDURE: NSTEMI PLANNED PROCEDURE: Left heart cath with possible percutanoeus coronary intervention PATIENT REASSESSED PRIOR TO SEDATION, WITH NO CHANGE NOTED: Yes PHYSICAL EXAM: alert, oriented x 3, clear to auscultation bilaterally and regular rate & rhythm AIRWAY EVAL/ANESTHESIA PLAN: normal airway, ASA III, Local Anesthesia, Risks, benefits & alternatives of sedation and/or procedure discussed and Patient agrees to continue as planned ADDITIONAL INFORMATION: Moderate sedation
--- NOTE | 2023-11-09 11:24 | P.PN_ITS ---
Subjective 2 Subjective: Patient is chest pain-free at this time. He states he had chest pain yesterday which was a bandlike pattern which she felt like was possibly heartburn as well however it was a pressure-like sensation in the middle of his chest which did not radiate anywhere. He says the pain lasted until he got himself to the ER. He drove himself to the ER. He states he has a history of KS in the past with 1 stent placed he is unsure in what vessel. This was at [facility] in [place]. He cannot exactly remember when but he thinks it was 10 years ago. He is also had a stroke in the past. He states that he was not taking his medications at first and was noncompliant however now due to chest pain he is in a crisis and recently he started taking all his meds on time. He says yesterday he was at [facility] purchasing his medication when the chest pain started. He says he is never had high blood pressure into the 200s however the last 3 to 4 days his pressure has been up. He has never seen values of 200. Currently he is living in his van and plans to return to his van. He said he saw Dr. Teresa last in January and has an upcoming appointment with his PCP on November 16 which he will be attending. He says he will be compliant to his medication. Vitals/I&O/Wt Last Vital Signs Temp 97.8 F 11/09/23 00:40 Pulse 72 11/09/23 07:14 Resp 21 H 11/09/23 07:14 BP 151/76 11/09/23 07:14 Pulse Ox 96 11/09/23 07:14 O2 Del Method Room Air 11/09/23 07:14 11/08/23 11/09/23 11/09/23 22:59 06:59 14:59 Intake Total 480 / 480 Output Total 775 / 775 Balance -775 / -775 480 / 480 Weight last 48 hrs Weight 103.873 kg Weight 103.873 kg Weight 103.958 kg Weight 102.058 kg Physical Exam 2 Narrative: Pleasant cooperative Masked facies Awake and alert GCS 15 No active chest pain S1, S2 Hemodynamically stable A-fib without RVR Abdomen soft No active chest pain at this time. Pain not reproducible to palpation. Data 11/08/23 19:49 11/09/23 01:18 A&P Assessment and plan (1) Schizophrenia, paranoid: (2) Schizoaffective disorder: Qualifiers: Schizoaffective disorder type: bipolar Qualified Code(s): F25.0 - Schizoaffective disorder, bipolar type (3) Hypertension: Qualifiers: Hypertension type: primary hypertension Qualified Code(s): I10 - Essential (primary) hypertension (4) Non-ST elevation KS (NSTEMI): (5) Atrial fibrillation: Qualifiers: Atrial fibrillation type: unspecified Qualified Code(s): I48.91 - Unspecified atrial fibrillation (6) GERD (gastroesophageal reflux disease): Qualifiers: Esophagitis presence: without esophagitis Qualified Code(s): K21.9 - Gastro-esophageal reflux disease without esophagitis (7) BPH loc w urin obs/LUTS: Plan #Non-STEMI #History of CAD status post PCI 10 years ago #GERD #Atrial fibrillation #Bradycardia #Hypertension #Schizoaffective disorder - Delta troponin 279 at 6 hours - Continue ACS protocol aspirin, Plavix, therapeutic Lovenox ? I will cancel his stress test and consult cardiology. Based on history physical I believe an angiogram would be better in his case due to the significant amount of troponin leak. I will discuss with cardiology. ? Continue to keep n.p.o. status. ? Hold chlorthalidone, lisinopril, metoprolol as patient is bradycardic. ? Urine drug screen negative ? Check echo ? Check TSH ? Case management consulted for potential homeless center placement. ?Continue psych meds ? Patient rate controlled at this time in fact slightly bradycardic. Will hold metoprolol - Will consult cardiology. Full code DVT prophylaxis: On therapeutic Lovenox. Attestations 2 Medical Necessity Statement*: Will require continued hospitalization for management of NSTEMI. Diagnoses Schizophrenia, paranoid F20.0 Schizoaffective disorder, bipolar type F25.0 Schizoaffective disorder type: bipolar Essential hypertension I10 Hypertension type: primary hypertension Non-ST elevation KS (NSTEMI) I21.4 Atrial fibrillation, unspecified type I48.91 Atrial fibrillation type: unspecified Gastroesophageal reflux disease without esophagitis K21.9 Esophagitis presence: without esophagitis BPH loc w urin obs/LUTS N40.1
[2023-11-09] MEDS: sodium chloride 0.9% 1,000 ML 100 ML IV (13:22)
[2023-11-10 00:22] VITALS: BP 116/65; PULSE 89; RESP 15; TEMP 36.9; O2SAT 95
[2023-11-10 04:13] VITALS: BP 103/66; PULSE 73; RESP 15; TEMP 36.7; O2SAT 95
[2023-11-10 04:52] LABS: Basophils # 0.1 10^3/uL (0.0-0.1); Basophils % 0.5 %; Eosinophils # 0.3 10^3/uL (0.0-0.8); Eosinophils % 3.3 %; Hematocrit 40.1 % (37-53); Lymphocytes # 1.9 10^3/uL (0.8-4.8); Mean Corpuscular HGB Conc 33.2 g/dL (30-55); Mean Corpuscular Hemoglobin 30.6 pg (27-33); Mean Corpuscular Volume 92.4 fl (82-101); Mean Platelet Volume 10.4 fL (7.4-10.4); Monocytes # 1.2 10^3/uL (0.2-0.9); Monocytes % 12.3 %; Neutrophils # 6.09 10^3/uL (1.8-7.7); Neutrophils % 63.7 %; Nucleated Red Blood Cells % 0 %; Platelet Count 232 10^3/cmm (157-399); Red Blood Count 4.34 10^6/uL (3.85-5.65); White Blood Count 9.58 10^3/uL (3.29-11.43)
[2023-11-10 05:17] LABS: Anion Gap 13.6 (5-19); Blood Urea Nitrogen 26 mg/dL (8-23); Calcium 9.3 mg/dL (8.5-10.5); Carbon Dioxide 24 mmol/L (22-29); Chloride 105 mmol/L (98-107); Glomerular Filtration Rate 74.3 mL/min (90-130); Glucose 91 mg/dL (65-115); Magnesium 2.1 mg/dL (1.7-2.3); Osmolality Calculated 290 mOsm/kg (285-295); Potassium 4.6 mmol/L (3.5-5.1); Sodium 138 mmol/L (136-145)
[2023-11-10 06:00] VITALS: PULSE 68
[2023-11-10 07:15] VITALS: BP 146/86; PULSE 77; RESP 20; TEMP 36.5; O2SAT 96
--- NOTE | 2023-11-10 07:47 | PM.PN ---
Subjective Subjective: Patient is doing well. Denies complaints of chest pain. Vitals/I&O/Wt Last Vital Signs Temp 97.7 F 11/10/23 07:15 Pulse 77 11/10/23 07:15 Resp 20 H 11/10/23 07:15 BP 146/86 11/10/23 07:15 Pulse Ox 96 11/10/23 07:15 O2 Del Method Room Air 11/10/23 07:15 11/09/23 11/10/23 11/10/23 22:59 06:59 14:59 Intake Total 240 / 1080 1000 / 2080 Output Total 420 / 620 Balance -180 / 460 1000 / 1460 Weight last 48 hrs Weight 232 lb 14.4 oz Weight 229 lb Weight 229 lb Weight 229 lb 3 oz Weight 225 lb Physical Exam Narrative: GENERAL: Patient is alert, awake and oriented x3. [] NECK: No jugular vein distension. [] HEENT: No cyanosis. No icterus. No pallor. [] HEART: Regular S1 and S2. No murmur, rub or gallop. [] LUNGS: Clear to auscultate bilaterally. [] CENTRAL NERVOUS SYSTEM: Grossly nonfocal. [] EXTREMITIES: Lower extremities with 1+ edema bilaterally Data 11/10/23 03:37 11/10/23 03:37 A&P Assessment and plan (1) Non-ST elevation LA (NSTEMI): (2) Atrial fibrillation: (3) Hyperlipidemia: Qualifiers: Hyperlipidemia type: mixed hyperlipidemia Qualified Code(s): E78.2 - Mixed hyperlipidemia (4) Hypertension: Qualifiers: Hypertension type: primary hypertension Qualified Code(s): I10 - Essential (primary) hypertension Plan Patient had successful revascularization of RCA with 1 stent yesterday. Has significant disease of ramus artery that will be treated as staged procedure. Continue dual antiplatelet therapy with aspirin and Plavix. Continue statin therapy. Thank you for involving us with care of this patient. Patient is stable to be discharged from cardiology standpoint. Please call with questions. Attestations Medical Necessity Statement*: Care expected to cross 2 midnights Coding Level of Care Code Acute Code for [facility] Diagnoses Non-ST elevation LA (NSTEMI) I21.4 Atrial fibrillation I48.91 Mixed hyperlipidemia E78.2 Hyperlipidemia type: mixed hyperlipidemia Essential hypertension I10 Hypertension type: primary hypertension
[2023-11-10] MEDS: amlodipine 10 mg Tablet PO (09:46)
[2023-11-10] MEDS: chlorthalidone 25 mg Tablet 12.5 MG PO (09:46)
[2023-11-10] MEDS: lisinopril 20 mg Tablet PO (09:46)
[2023-11-10] MEDS: aspirin 81 mg EC Tablet PO (09:46)
[2023-11-10] MEDS: atorvastatin 40 mg Tablet 80 MG PO (09:46)
[2023-11-10] MEDS: clopidogrel 75 mg Tablet PO (09:47)
[2023-11-10 11:31] VITALS: BP 126/78; PULSE 73; RESP 19; TEMP 36.6; O2SAT 96
--- NOTE | 2023-11-10 11:48 | PM.DCS ---
Discharge Providers Date of Admission: 11/08/23 22:20 Date of Discharge: November 10, 2023 Attending Provider at Admission: Ofe Najera MD Attending Provider at Discharge: Sofie Mathur MD Diagnoses at Discharge Discharge Diagnosis (1) Non-ST elevation KS (NSTEMI): Status: Acute (2) Atrial fibrillation: Status: Acute (3) Hyperlipidemia: Status: Acute Qualifiers: Hyperlipidemia type: mixed hyperlipidemia Qualified Code(s): E78.2 - Mixed hyperlipidemia (4) Hypertension: Status: Acute Qualifiers: Hypertension type: primary hypertension Qualified Code(s): I10 - Essential (primary) hypertension Reason for Visit Reason for Visit: Chest pain sob Brief History: Kirby Whitehead is a 68 year old male with history of hypertension, schizophrenia, A-fib, who is currently living in his van stating that he has not been able to find an apartment he was evicted from [facility], has history of hypertension, recently has had multiple visits in the ER, today he was having chest pain that prompted his visit to the ER. Patient stating that he was at the [facility] picking up his second medication for blood pressure which was prescribed from the ER when he started experiencing chest pain when he noticed that his blood pressure was 200/160mmhg, he is describing his pain as pressure-like sensation which lasted for about couple of hours, it did not radiate anywhere, no nausea, vomiting or diaphoresis. He does not carry any history of coronary disease. In the ER he was diagnosed with hypertensive emergency with troponin leak without any significant EKG changes however because of delta troponin he was admitted to the [facility], I have given him ACS protocol medications Will require stress test, he is chest pain-free at the time of my evaluation Bedside echo showed preserved ejection fraction, mild MR, LAD, he is in A-fib without RVR, previously patient was reluctant to take any anticoagulating agent for his A-fib however now he is amenable to start Please note patient is living in his van with comfortable, sleeping back in multiple layers of blankets, his daughters are in [place], he does not have any medical DPOA, he is full code, after being discharged from the hospital his plans to go back in his van, he will need case management in the morning Hospital Course Hospital Course Patient admitted for chest pain and ruled in for NSTEMI. He went for angiogram and had 95% stenosis in RCA and had PCI done. There is also a second lesion that will be done at a later time as a staged intervention. Patient to follow-up with cardiology as an outpatient for scheduling that. He lives in his van and has follow-up appointment set up. He intends to return to his van at this time. We have discussed with patient to stay compliant to his medications as he is at risk of myocardial infarction if he misses his dual antiplatelets. He verbalized understanding and will be discharged in stable condition. Meds to beds will be set up for him. Physical Exam Narrative: Pleasant cooperative Masked facies Awake and alert GCS 15 No active chest pain S1, S2 Hemodynamically stable A-fib without RVR Abdomen soft Discharge Data Studies Completed and Pending Completed Studies During Hospitalization Category Date Time Status CTA chest [CT angio chest PE protcl [id number]] Stat Cat Scan 11/08/23 20:56 Completed XR chest 1V portable [id number] Stat Exams 11/08/23 19:14 Completed CV. echo complete* [id number] Routine Ultrasound 11/08/23 22:26 Completed Pending at discharge Category Date Time Status CABLE CUTTER AND SWAGER request for service Routine Exams 11/09/23 10:34 Taken Cardiac Stress Test MIBI [Sestamibi Stress Test Request Exams 11/09/23 07:22 Stop Req ] Routine Radiology Impressions Chest X-Ray 11/08/23 19:14 IMPRESSION: 1. No acute cardiopulmonary process. 2. Incidental/nonacute findings are listed in the report. Chest CTA 11/08/23 20:56 IMPRESSION: 1. No evidence for pulmonary embolism. 2. No acute cardiopulmonary process. 3. Incidental/nonacute findings are listed in the report. Laboratory Results WBC 9.58 10^3/uL (3.29-11.43) 11/10/23 03:37 RBC 4.34 10^6/uL (3.85-5.65) 11/10/23 03:37 Hgb 13.30 g/dL (11.27-16.99) 11/10/23 03:37 Hct 40.1 % (37-53) 11/10/23 03:37 MCV 92.4 fl (82-101) 11/10/23 03:37 MCH 30.6 pg (27-33) 11/10/23 03:37 MCHC 33.2 g/dL (30-55) 11/10/23 03:37 RDW 14.0 % (12.1-15.1) 11/10/23 03:37 Plt Count 232 10^3/cmm (157-399) 11/10/23 03:37 MPV 10.4 fL (7.4-10.4) 11/10/23 03:37 Neut % (Auto) 63.7 % 11/10/23 03:37 Lymph % (Auto) 20.0 % 11/10/23 03:37 [place]henry % (Auto) 12.3 % 11/10/23 03:37 Eos % (Auto) 3.3 % 11/10/23 03:37 Baso % (Auto) 0.5 % 11/10/23 03:37 Neut # (Auto) 6.09 10^3/uL (1.8-7.7) 11/10/23 03:37 Lymph # (Auto) 1.9 10^3/uL (0.8-4.8) 11/10/23 03:37 [place]hen[place] # (Auto) 1.2 10^3/uL (0.2-0.9) H 11/10/23 03:37 Eos # (Auto) 0.3 10^3/uL (0.0-0.8) 11/10/23 03:37 Baso # (Auto) 0.1 10^3/uL (0.0-0.1) 11/10/23 03:37 Nucleated RBC % (auto) 0 % 11/10/23 03:37 Nucleated RBCs # 0.0 /100WBC 11/10/23 03:37 D-Dimer 0.51 ug/mLFEU (0-0.59) 11/08/23 19:49 Sodium 138 mmol/L (136-145) 11/10/23 03:37 Potassium 4.6 mmol/L (3.5-5.1) 11/10/23 03:37 Chloride 105 mmol/L (98-107) 11/10/23 03:37 Carbon Dioxide 24 mmol/L (22-29) 11/10/23 03:37 Anion Gap 13.6 (5-19) 11/10/23 03:37 BUN 26 mg/dL (8-23) H 11/10/23 03:37 Creatinine 1.0 mg/dL (0.7-1.2) 11/10/23 03:37 GFR Calculation 74.3 mL/min (90-130) L 11/10/23 03:37 Glucose 91 mg/dL (65-115) 11/10/23 03:37 Estimat Average Glucose 111 11/08/23 19:49 Hemoglobin A1c 5.5 % (4.0-6.0) 11/08/23 19:49 Calculated Osmolality 290 mOsm/kg (285-295) 11/10/23 03:37 Calcium 9.3 mg/dL (8.5-10.5) 11/10/23 03:37 Magnesium 2.1 mg/dL (1.7-2.3) 11/10/23 03:37 Total Bilirubin 0.4 mg/dL (0.15-1.2) 11/08/23 19:49 AST 19 U/L (0-40) 11/08/23 19:49 ALT 11 U/L (0-41) 11/08/23 19:49 Alkaline Phosphatase 110 U/L (40-130) 11/08/23 19:49 Troponin T Baseline 20 ng/L (0-15) H 11/08/23 19:49 Troponin T 120 Minute 51.16 ng/L (0-15) H 11/08/23 21:09 Delta Troponin T 31.16 ABS# (0-10) H* 11/08/23 21:09 Troponin T Hi Sens 6Hr 299.1 ng/L (0-15) H 11/09/23 01:18 Troponin T Hi Sens 6Hr Delta 279.1 ng/L (0-12) H* 11/09/23 01:18 NT-Pro-B Natriuret Pep 592 pg/mL (0-125) H 11/08/23 19:49 Total Protein 7.2 g/dL (6.6-8.7) 11/08/23 19:49 Albumin 4.3 g/dL (3.5-5.2) 11/08/23 19:49 Globulin 2.9 g/dL (1.3-4.6) 11/08/23 19:49 TSH 3.42 uIU/mL (0.27-4.20) 11/08/23 19:49 Urine Opiates Screen Negative ng/mL (Negative) 11/09/23 06:53 Ur Barbiturates Screen Negative ng/mL (Negative) 11/09/23 06:53 Ur Phencyclidine Scrn Negative ng/mL (Negative) 11/09/23 06:53 Ur Amphetamines Screen Negative ng/mL (Negative) 11/09/23 06:53 U Benzodiazepines Scrn Negative ng/mL (Negative) 11/09/23 06:53 Urine Cocaine Screen Negative ng/mL (Negative) 11/09/23 06:53 U Marijuana (THC) Screen Negative ng/mL (Negative) 11/09/23 06:53 Vitals Last Vital Signs Temp 97.8 F 11/10/23 11:31 Pulse 73 11/10/23 11:31 Resp 19 H 11/10/23 11:31 BP 126/78 11/10/23 11:31 Pulse Ox 96 11/10/23 11:31 O2 Del Method Room Air 11/10/23 11:31 Discharge Plan Discharge Patient Disposition: Home Condition: Stable Prescriptions: New aspirin 81 mg Tablet,Delayed Release (Dr/Ec) 81 mg PO DAILY Qty: 30 1RF lisinopril 20 mg Tablet 20 mg PO DAILY Qty: 30 0RF atorvastatin 40 mg Tablet 80 mg PO DAILY Qty: 30 1RF metoprolol succinate [Toprol XL] 25 mg tablet extended release 24 hr 12.5 mg PO DAILY Qty: 30 0RF clopidogrel 75 mg Tablet 75 mg PO DAILY Qty: 30 1RF Continued paliperidone palmitate 234 mg/1.5 mL syringe 234 mg IM Q30D 30 Days Qty: 1.5 1RF amlodipine [Norvasc] 10 mg tablet 10 mg PO DAILY Qty: 30 0RF Discontinued metoprolol succinate 50 mg tablet extended release 24 hr 50 mg PO DAILY Qty: 30 1RF Discharge Orders: Discharge Order (Routine); Ordered 11/10/23 Ordered By: Sofie Mathur Referrals: Gary Casey M.D [Physician] - 1 month Sheridan Dominguez FNP [Nurse Practitioner] - 11/18/23 11:00 am Toya Arnold FNP [Referring] - 11/16/23 10:20 am Discharge Diet: Cardiac Discharge Activity: Resume usual activity Patient Instructions: Coronary Angioplasty (DC), Opioid Safety, Post Angiogram Home Care Instructions, Post Heart Attack Stoplight Activity Restrictions/Additional Instructions: Please ensure compliance with medications as missing even 1 dose can cause you to have a heart attack. You just had a stent placed in your heart. As discussed during hospital stay please follow-up with your appointments after discharge and take your medicine as directed. Discharge Attestations Time Spent in Discharge Care*: greater than 30 min Quality Metrics Clinical Quality Measures [ No reported AMI, CVA or VTE this stay] Coding Level of Care Code Acute Code for Chg Fwd Diagnoses Non-ST elevation KS (NSTEMI) I21.4 Atrial fibrillation I48.91 Mixed hyperlipidemia E78.2 Hyperlipidemia type: mixed hyperlipidemia Essential hypertension I10 Hypertension type: primary hypertension
[2023-11-10 13:22] VITALS: BP 126/78; PULSE 73; RESP 19; TEMP 36.6; O2SAT 96
--- NOTE | 2023-11-10 14:13 | PC.NURSE ---
Discharge Note Patient discharged to [his van] via [w/c] accompanied by [RN]. Discharge instructions reviewed with patient and/or membership sales representative. Mobile pharmacy medications and/or prescriptions provided. Belongings/home medications returned.
== END 2023-11-10 13:55 | disposition home or self-care (01) ==
LOC: ER 22:07 → CSU 22:20
PROVIDERS: Internal Medicine; Admitting Provider Internal Medicine; Emergency Provider Emergency Medicine; Visit Provider Internal Medicine
DX: I21.4 Non-ST elevation (NSTEMI) myocardial infarction (principal); I48.91 Unspecified atrial fibrillation; E78.2 Mixed hyperlipidemia; I10 Essential (primary) hypertension; Z86.73 Personal history of transient ischemic attack (TIA), and cerebral infarction without residual deficits; I25.10 Atherosclerotic heart disease of native coronary artery without angina pectoris; F25.0 Schizoaffective disorder, bipolar type; K21.9 Gastro-esophageal reflux disease without esophagitis; N40.1 Benign prostatic hyperplasia with lower urinary tract symptoms; N13.8 Other obstructive and reflux uropathy; Z59.00 Homelessness unspecified
CPT/HCPCS: 36415; 71045; 71275; 80048; 80053; 80306; 83036; 83735; 83880; 84443; 84484; 85025; 85347; 85378; 93005; 93306; 93454; 96367; 96372; 96374; 96375; 99152; 99153; 99285; C1725; C1769; C1874; C1887; C1894; C9600; G0378; J0360; J1644; J1650; J2250; J3010; J3490; J7030; Q9967

== ENCOUNTER → 2023-11-18 10:42 | Outpatient (BNVA) | payer MEDICARE, SELFPAY ==
[2022-01-22 13:32] VITALS: BP 136/92; BMI 26.8
== END ==
PROVIDERS: Visit Provider Nurse Practitioner Family
DX: I25.10 Atherosclerotic heart disease of native coronary artery without angina pectoris (principal); I10 Essential (primary) hypertension
CPT/HCPCS: 99214

== ENCOUNTER 2023-11-21 07:29 | Outpatient (CLI) | payer MEDICARE, SELFPAY ==
[2022-01-22 13:32] VITALS: BP 136/92; BMI 26.8
[2023-11-21 08:09] LABS: Anion Gap 15.2 (5-19); Blood Urea Nitrogen 18 mg/dL (8-23); Calcium 9.8 mg/dL (8.5-10.5); Carbon Dioxide 28 mmol/L (22-29); Chloride 99 mmol/L (98-107); Chol HDL Ratio 3.89 mg/dL (1.0-5.00); Cholesterol 183 mg/dL (0-200); Glomerular Filtration Rate 96.1 mL/min (90-130); Glucose 108 mg/dL (65-115); HDL Cholesterol 47 mg/dL (60-100); LDL Cholesterol Calculated 107 mg/dL (50-129); LDL HDL Ratio 2.28 RATIO (0.00-3.22); Osmolality Calculated 288 mOsm/kg (285-295); Potassium 4.2 mmol/L (3.5-5.1); Sodium 138 mmol/L (136-145); Triglycerides 146 mg/dL (0-150)
== END 2023-11-21 07:30 | disposition home or self-care (01) ==
LOC: LAB 07:30
PROVIDERS: PCP Nurse Practitioner Family; Visit Provider Nurse Practitioner Family
DX: I25.10 Atherosclerotic heart disease of native coronary artery without angina pectoris (principal)
CPT/HCPCS: 36415; 80048; 80061

== ENCOUNTER 2023-12-06 09:17 | Observation (INO) | payer MEDICARE, SELFPAY ==
[2022-01-22 13:32] VITALS: BP 136/92; BMI 26.8
[2023-12-06] VITALS (59 sets, daily range): BP systolic 86–142; BP diastolic 59–92; PULSE 39–75; RESP 7–25; TEMP 36.6–37.2; O2SAT 96–99; BMI 37.4
--- NOTE | 2023-12-06 06:00 | XACV_ITS ---
Exam Room: 2 Ht: 196 cm Wt: 102 kg BSA: 2.36 m2 Gender: Male : 1955 Any Known Allergies: No known allergies Exam Priority: Routine Procedure(s): Procedure Description: PCI procedure Procedure Description: Drug Eluting Coronary Stent Procedure Description: PTCA Procedure Description: Miscellaneous Procedure Description: ACT Diagnostic Cath Status: Elective Diagnostic Findings * INDICATION: Staged PCI of ramus artery. * No significant disease noted in the Left Main, Left Anterior Descending, or Circumflex coronary arteries. * Ramus: significant 80-90% proximal vessel stenosis, JULIANNE: 3 flow. * First Obtuse Marginal Branch is a small sized vessel and distally has a severe 90% stenosis, JULIANNE: 3 flow. * RCA not injected as it is a staged PCI of ramus artery. PCI Status: Elective PCI Indication: Staged PCI Interventional Findings * Procedure detail: * We engaged left main artery with XB 3.5 guide catheter. IV heparin was administered to maintain anticoagulation. 0.014 run-through guidewire was used to cross the stenosis and was put in distal vessel. * We predilated the stenosis with 3.0 x 15 mm semicompliant balloon. This was followed by placement of 3.0 x 30 mm resolute Obie drug-eluting stent. At this time final angiogram was performed that showed excellent stent expansion, JULIANNE-3 flow and no residual stenosis. Guidewire and guide catheter were removed. 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 * Ramus: 80% stenosis treated with a AB TREK 3.00X15 RX BALLOON, and MDT R OBIE 3.0X30 CARMELO. 0% residual stenosis, JULIANNE: 3 flow. Conclusions 1. Severe proximal ramus artery stenosis s/p successful revascularization with 1 stent. OM1 has significant disease however it is a small sized vessel and stenosis distally. Will medically manage it.. 2. No significant disease noted in the Left Main, Left Anterior Descending, or Circumflex coronary arteries. 3. Ramus was treated with a Balloon, and Drug Eluting Stent. Recommendations * Continue dual antiplatelet therapy with aspirin and Plavix for at least 1 year. * High intensity statin therapy. * Outpatient cardiology follow-up in 2 weeks. Interventional RX Recommendation: PCI w/o planned CABG Diagnostic RX Recommendation: PCI w/o planned CABG Anticoagulation: Heparin Pressures Phase:Rest AO : 98 / 62 ( 74 ) @ 7:36:00 AM 90 / 56 ( 71 ) @ 7:38:00 AM 95 / 59 ( 75 ) @ 7:42:00 AM Clinical Evaluation EBL: 5mL-10mL Procedural Details Procedure Consent Obtained. Pre-Procedure Time Out. Identified patient by full name and date of as verbalized by the patient/guarantor. Does the consent match the physician's order: Yes. Accurate & Complete Informed Consent: Yes. Inpatient/Outpatient History & Physical on Chart: Yes. If H&P is completed, is and addenduem needed: No; If yes, is the addendum complete: N/A. Visualize and Verify Site with Patient/Guarantor: N/A. Relevant Radiology Images available: Yes. Pre-op teaching completed and patient verbalized understanding. The risks, benefits, and alternatives of sedation and/or procedure were discussed by physician. The patient agrees to continue. Procedure started. Physician arrived. [facility] Clinical Fraility Score: 4: Vulnerable. [employer] Breakfast Innkeeper Indications: Stable Known CAD. Chest Pain Symptom Assessment: Atypical Angina. Correct patient, site and procedure confirmed by cath team. Current diagnosis: Chest Pain. PERRLA. Strong, equal hand night baker bilaterally. Lungs clear x 5 lobes. IV Site on Arrival: 20 gauge in the right anticubital. IV Fluids: 0.9% NaCl at KVO. 0 mL infused prior to culture media laboratory assistant. Pre Procedural Pulses: bilateral dorsalis pedis was 3+. Pre Procedural Pulses: bilateral posterior tibial was 3+. Pre Procedural Pulses: bilateral radial was 3+. Oxygen started at 2liters/min via nasal canula. right groin was prepped with chloroprep then draped in the usual sterile fashion. right radial was prepped with chloroprep then draped in the usual sterile fashion. Baseline sample Acquired. HR: 70 BPM. Physician scrubbed in. Immediate Pre-Procedure Time Out. Correct Patient: Yes; Correct Procedure: Yes; Correct Site: Yes; Correct Patient Position: Yes; Correct Supplies: Yes; Dried Flammable Prep: Yes; Blood Products Available: N/A;. Lidocaine 1% infiltrated to the right radial. Arterial access obtained. 6 occitan XB 3.5 guide catheter was inserted over the wire. Runthrough guidewire was advanced through the guide catheter to lesion in the Ramus. Inflation number : 1 A AB TREK 3.00X15 RX BALLOON was prepped and advanced across the Ramus , then inflated to 8 MCKENNA for 0:17 seconds. Inflation number: 2 The AB TREK 3.00X15 RX BALLOON was reinflated across the Ramus, to 8 MCKENNA for 0:08 seconds. Inflation number: 3 The AB TREK 3.00X15 RX BALLOON was reinflated across the Ramus, to 8 MCKENNA for 0:08 seconds. Balloon out. Results checked. Inflation Number : 4 A MDT R OBIE 3.0X30 CARMELO -Lot Number# _[id number] 04/06/2026 was prepped and advanced across the Ramus. The stent was deployed at 12 MCKENNA for 0:16 seconds. Stent balloon out over wire. Results checked. Wire out. Results checked. Guide catheter out. ACT drawn. Results out of range high seconds. Therapeutic limits - pre-heparin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 90-150 seconds and monitoring heparin during a vascular procedure >250 seconds. A TR Band was successful obtaining hemostatsis at the Right Radial artery insertion site. Post Procedure: Pulses reassessed and unchanged. PERRLA. Strong, equal hand night baker bilaterally. No VTE prophylaxis required. Medication's Wasted: Nitro = 49.8 mg. Medication's Wasted: Lidocaine 1% = 2 mL. Medication's Wasted: Heparin = 1000 units. Medication's Wasted: Other = Fentanyl 50mcg Versed 1 mg. Total IV fluids: 45 mL. Complications: None. Estimated blood loss: 5mL-10mL. Responsiveness - Normal response to verbal stimuli; alert and oriented, PERRLA. Airway - Unaffected, no intervention required; spontaneous ventilation. Circulation: W/N/L, pulses unchanged. Nausea/Vomiting: No. Procedure completed. Patient transferred by wheelchair to CPRU. Vital chart was stopped. Access Site Site: Right Radial artery Sheath Size: 6 Fr Hemostasis Method: TR Band Hemostasis Success: Successful Procedure Medications Start: 7:16 AM Stop: 7:16 AM Medication: Fentanyl Amount: 50 mcg Route: I.V. Start: 7:20 AM Stop: 7:20 AM Medication: Versed Amount: 1 mg Route: I.V. Start: 7:33 AM Stop: 7:33 AM Medication: Nitrogylcerin Amount: 200 mcg Route: I.A. Start: 7:36 AM Stop: 7:36 AM Medication: Heparin Amount: 9000 units Route: I.V. Start: 7:41 AM Stop: 7:41 AM Medication: Heparin Amount: 1000 units Route: I.V. I, the attending physician, have reviewed and verified all procedure medications. Yes, all medications given per verbal order History/Risk Factors Hypertension: Yes Dyslipidemia: Yes Peripheral Arterial Disease (PAD): No Myocardial Infarction (MO): No Obesity: No Renal Disease: No Tobacco Use: Never Prior Interventions PCI: Yes CABG: No Valve Surgery: No Date of PCI: 11/09/2023 Report Signatures Finalized by Gary Casey MD on 12/10/2023 03:44 PM
[2023-12-06] MEDS: diphenhydrAMINE 50 mg Capsule PO (06:15)
[2023-12-06 06:24] LABS: Basophils # 0.1 10^3/uL (0.0-0.1); Basophils % 0.9 %; Eosinophils # 0.4 10^3/uL (0.0-0.8); Eosinophils % 5.5 %; Hematocrit 40.2 % (37-53); Lymphocytes # 1.7 10^3/uL (0.8-4.8); Lymphocytes % 22.1 %; Mean Corpuscular HGB Conc 34.3 g/dL (30-55); Mean Corpuscular Hemoglobin 31.2 pg (27-33); Mean Corpuscular Volume 90.7 fl (82-101); Mean Platelet Volume 10.3 fL (7.4-10.4); Monocytes # 0.7 10^3/uL (0.2-0.9); Monocytes % 9.8 %; Neutrophils # 4.61 10^3/uL (1.8-7.7); Neutrophils % 61.3 %; Nucleated Red Blood Cells % 0 %; Platelet Count 235 10^3/cmm (157-399); Red Blood Count 4.43 10^6/uL (3.85-5.65); Red Cell Distribution Width 13.1 % (12.1-15.1); White Blood Count 7.52 10^3/uL (3.29-11.43)
[2023-12-06 06:42] LABS: Anion Gap 15.2 (5-19); Blood Urea Nitrogen 21 mg/dL (8-23); Calcium 9.6 mg/dL (8.5-10.5); Carbon Dioxide 26 mmol/L (22-29); Chloride 103 mmol/L (98-107); Glomerular Filtration Rate 83.9 mL/min (90-130); Glucose 113 mg/dL (65-115); Osmolality Calculated 294 mOsm/kg (285-295); Potassium 4.2 mmol/L (3.5-5.1); Sodium 140 mmol/L (136-145)
--- NOTE | 2023-12-06 07:21 | P.HPUD_ITS ---
Surgery/Procedure H&P Update DATE OF PROCEDURE: December 06, 2023 DATE H&P PERFORMED: 11/18/23 H&P UPDATE INFORMATION: I have reviewed H&P completed within last 30 days, I have examined patient prior to procedure and No changes to prior documentation PREOP DIAGNOSIS: Staged PCI of Ramus artery PRIMARY INDICATION FOR PROCEDURE: Staged PCI of ramus artery PLANNED PROCEDURE: Operation Date: 12/06/23 07:00 Proposed Procedures p [facility] [address]241 I25.10(Left) - Gary Casey M.D Staged PCI of ramus artery PATIENT REASSESSED PRIOR TO SEDATION, WITH NO CHANGE NOTED: Yes PHYSICAL EXAM: alert, oriented x 3, clear to auscultation bilaterally and regular rate & rhythm AIRWAY EVAL/ANESTHESIA PLAN: normal airway, ASA III, Local Anesthesia, Risks, benefits & alternatives of sedation and/or procedure discussed and Patient agrees to continue as planned ADDITIONAL INFORMATION: Moderate sedation
--- NOTE | 2023-12-06 07:55 | PC.NURSE ---
Patient arrived to CPRU 3 post cath with PCI. Pt alert and oriented, breathing even and non-labored on room air. Denies pain at this time. TR band to right radial . Site asymptomatic. No signs of bleeding or hematoma noted. Pt placed on bedside side door worker. Pt in afib slow ventricular response. Rate mid 40's-mid 50's. Report called to ART Haynes by Carly Nobles RN.
--- NOTE | 2023-12-06 08:15 | PC.NURSE ---
Physician Notified, Low HR Dr. Casey notified of HR dropping as slow as 30 but not sustaining. Pt is in afib and has history of afib. Reports taking carvedilol this am. Pt is asymptomatic. BP remains stable. No new orders received, plan is to hold beta donnell today.
--- NOTE | 2023-12-06 08:28 | PC.NURSE ---
Physician notified of BP Bp 86/69, HR remains slow afib rate varies high 30's low 50's. Pt denies chest pain, dizziness. Dr. Casey notified, received verbal orders to start NS bolus of 500ml.
--- NOTE | 2023-12-06 08:29 | PC.NURSE ---
Bolus NS 500ml bolus started from NS bag started in labor training manager.
--- NOTE | 2023-12-06 08:59 | PC.NURSE ---
Updated report called to ART Haynes in [facility]
[2023-12-06] MEDS: sodium chloride 0.9% 1,000 ML 100 ML IV ×2 (11:31→21:26)
--- NOTE | 2023-12-06 18:56 | PC.NURSE ---
shift report pt came from Medical Front Desk Specialist this morning. He is alert,orientedx4, telemonitor shows slow afib HR-upper 40s to 50s. Pt asymptomatic. TR band intact on right wrist. Educated pt on act. restrictions to right arm. Educated pt to notify nurse if any unusual pain or burning sensation, hematoma or bleeding. Call light and urinal provided to pt.
[2023-12-07 01:29] VITALS: BP 109/68; PULSE 52; RESP 12
[2023-12-07 03:51] LABS: Basophils # 0.1 10^3/uL (0.0-0.1); Eosinophils # 0.6 10^3/uL (0.0-0.8); Eosinophils % 7.2 %; Hematocrit 38.7 % (37-53); Lymphocytes # 1.7 10^3/uL (0.8-4.8); Lymphocytes % 21.9 %; Mean Corpuscular HGB Conc 33.9 g/dL (30-55); Mean Corpuscular Hemoglobin 30.4 pg (27-33); Mean Corpuscular Volume 89.8 fl (82-101); Mean Platelet Volume 10.6 fL (7.4-10.4); Monocytes # 0.8 10^3/uL (0.2-0.9); Monocytes % 10.4 %; Neutrophils # 4.71 10^3/uL (1.8-7.7); Neutrophils % 59.1 %; Nucleated Red Blood Cells % 0 %; Platelet Count 212 10^3/cmm (157-399); Red Blood Count 4.31 10^6/uL (3.85-5.65); Red Cell Distribution Width 12.9 % (12.1-15.1); White Blood Count 7.96 10^3/uL (3.29-11.43)
[2023-12-07 04:07] VITALS: BP 140/81; PULSE 50; RESP 10; O2SAT 96
[2023-12-07 04:15] LABS: Anion Gap 15.3 (5-19); Blood Urea Nitrogen 20 mg/dL (8-23); Calcium 9.3 mg/dL (8.5-10.5); Carbon Dioxide 24 mmol/L (22-29); Chloride 106 mmol/L (98-107); Glomerular Filtration Rate 83.9 mL/min (90-130); Glucose 93 mg/dL (65-115); Osmolality Calculated 294 mOsm/kg (285-295); Potassium 4.3 mmol/L (3.5-5.1); Sodium 141 mmol/L (136-145)
[2023-12-07 06:00] VITALS: PULSE 38
--- NOTE | 2023-12-07 07:18 | P.DS_ITS ---
Discharge Providers Date of Admission: 12/06/23 09:17 Date of Discharge: December 07, 2023 Attending Provider at Admission: Gary Casey M.D Attending Provider at Discharge: Gary Casey M.D Primary Care Provider: LISANDRA Bowens Reason for Visit Reason for Visit: I25.10 Brief History: 68-year-old man with past medical histor y of CAD who had recent PCI of RCA. Was here for staged PCI of ramus artery. Hospital Course Hospital Course Patient had successful revascularization of ramus artery with 1 stent. He was observed overnight and stayed stable. He was discharged in a stable condition. He was bradycardic during hospitalization. He was started on metoprolol. Physical Exam Narrative: GENERAL: Patient is alert, awake and oriented x3. [] NECK: No jugular vein distension. [] HEENT: No cyanosis. No icterus. No pallor. [] HEART: Regular S1 and S2. No murmur, rub or gallop. [] LUNGS: Clear to auscultate bilaterally. [] CENTRAL NERVOUS SYSTEM: Grossly nonfocal. [] EXTREMITIES: Lower extremities with 1+ edema bilaterally Discharge Data Studies Completed and Pending Pending at discharge Category Date Time Status [employer] ATTORNEY request for service Routine Exams 12/06/23 06:00 Taken Laboratory Results WBC 7.96 10^3/uL (3.29-11.43) 12/07/23 03:11 RBC 4.31 10^6/uL (3.85-5.65) 12/07/23 03:11 Hgb 13.10 g/dL (11.27-16.99) 12/07/23 03:11 Hct 38.7 % (37-53) 12/07/23 03:11 MCV 89.8 fl (82-101) 12/07/23 03:11 MCH 30.4 pg (27-33) 12/07/23 03:11 MCHC 33.9 g/dL (30-55) 12/07/23 03:11 RDW 12.9 % (12.1-15.1) 12/07/23 03:11 Plt Count 212 10^3/cmm (157-399) 12/07/23 03:11 MPV 10.6 fL (7.4-10.4) H 12/07/23 03:11 Neut % (Auto) 59.1 % 12/07/23 03:11 Lymph % (Auto) 21.9 % 12/07/23 03:11 [place] % (Auto) 10.4 % 12/07/23 03:11 Eos % (Auto) 7.2 % 12/07/23 03:11 Baso % (Auto) 1.0 % 12/07/23 03:11 Neut # (Auto) 4.71 10^3/uL (1.8-7.7) 12/07/23 03:11 Lymph # (Auto) 1.7 10^3/uL (0.8-4.8) 12/07/23 03:11 [place] # (Auto) 0.8 10^3/uL (0.2-0.9) 12/07/23 03:11 Eos # (Auto) 0.6 10^3/uL (0.0-0.8) 12/07/23 03:11 Baso # (Auto) 0.1 10^3/uL (0.0-0.1) 12/07/23 03:11 Nucleated RBC % (auto) 0 % 12/07/23 03:11 Nucleated RBCs # 0.0 /100WBC 12/07/23 03:11 Sodium 141 mmol/L (136-145) 12/07/23 03:11 Potassium 4.3 mmol/L (3.5-5.1) 12/07/23 03:11 Chloride 106 mmol/L (98-107) 12/07/23 03:11 Carbon Dioxide 24 mmol/L (22-29) 12/07/23 03:11 Anion Gap 15.3 (5-19) 12/07/23 03:11 BUN 20 mg/dL (8-23) 12/07/23 03:11 Creatinine 0.9 mg/dL (0.7-1.2) 12/07/23 03:11 GFR Calculation 83.9 mL/min (90-130) L 12/07/23 03:11 Glucose 93 mg/dL (65-115) 12/07/23 03:11 Calculated Osmolality 294 mOsm/kg (285-295) 12/07/23 03:11 Calcium 9.3 mg/dL (8.5-10.5) 12/07/23 03:11 Vitals Last Vital Signs Temp 98.9 F 12/06/23 17:30 Pulse 38 L 12/07/23 06:00 Resp 10 L 12/07/23 04:07 BP 140/81 12/07/23 04:07 Pulse Ox 96 12/07/23 04:07 O2 Del Method Room Air 12/06/23 20:00 Discharge Plan Discharge Patient Disposition: Home Condition: Stable Prescriptions: Continued paliperidone palmitate 234 mg/1.5 mL syringe 234 mg IM Q30D 30 Days Qty: 1.5 1RF amlodipine [Norvasc] 10 mg tablet 10 mg PO DAILY Qty: 30 0RF atorvastatin 40 mg Tablet 80 mg PO DAILY Qty: 30 1RF lisinopril 20 mg Tablet 20 mg PO DAILY Qty: 30 0RF clopidogrel 75 mg Tablet 75 mg PO DAILY Qty: 30 1RF aspirin 81 mg Tablet,Delayed Release (Dr/Ec) 81 mg PO DAILY Qty: 30 1RF Discontinued metoprolol succinate [Toprol XL] 25 mg tablet extended release 24 hr 12.5 mg PO DAILY Qty: 30 0RF Discharge Orders: Discharge Order (Routine); Ordered 12/07/23 Ordered By: Gary Casey Referrals: Sheridan Dominguez FNP [Nurse Practitioner] - 12/15/23 1:30 pm Toya Arnold FNP [Primary Care Provider] - 12/16/23 9:20 am Discharge Diet: Cardiac Discharge Activity: Increase activity as tolerated Patient Instructions: A-fib (Atrial Fibrillation) (DC), Heart Catheterization (DC), Coronary Intravascular Stent Placement (DC), Opioid Safety, Post Angiogram Home Care Instructions Discharge Attestations Time Spent in Discharge Care*: less than 30 min Quality Metrics Clinical Quality Measures [ No reported AMI, CVA or VTE this stay] Coding Level of Care Code Acute Code for Chg Fwd
[2023-12-07 09:20] VITALS: BP 121/71; PULSE 57; RESP 11; TEMP 36.7
[2023-12-07] MEDS: clopidogrel 75 mg Tablet PO (09:23)
[2023-12-07] MEDS: aspirin 81 mg EC Tablet PO (09:24)
[2023-12-07 10:16] VITALS: BP 121/71; PULSE 57; RESP 11; TEMP 36.7
== END 2023-12-07 10:55 | disposition home or self-care (01) ==
LOC: CSU 09:20
PROVIDERS: Admitting Provider Internal Medicine; PCP Nurse Practitioner Family; Visit Provider Internal Medicine
DX: I25.10 Atherosclerotic heart disease of native coronary artery without angina pectoris (principal); E78.5 Hyperlipidemia, unspecified; Z95.5 Presence of coronary angioplasty implant and graft; I48.91 Unspecified atrial fibrillation; I11.0 Hypertensive heart disease with heart failure; I50.9 Heart failure, unspecified; N40.1 Benign prostatic hyperplasia with lower urinary tract symptoms; N13.8 Other obstructive and reflux uropathy
CPT/HCPCS: 36415; 80048; 85025; 85347; 96361; 96365; 96376; 99152; 99153; C1725; C1769; C1874; C1887; C1894; C9600; G0378; J1644; J2250; J3010; J3490; J7030; Q0163; Q9967

== ENCOUNTER → 2023-12-15 14:02 | Outpatient (BNVA) | payer MEDICARE, SELFPAY ==
[2022-01-22 13:32] VITALS: BP 136/92; BMI 26.8
== END ==
PROVIDERS: PCP Nurse Practitioner Family; Visit Provider Nurse Practitioner Family
DX: I25.10 Atherosclerotic heart disease of native coronary artery without angina pectoris (principal)
CPT/HCPCS: 36415; 80048; 99214

== ENCOUNTER → 2024-01-09 10:03 | Outpatient (BNVA) | payer MEDICARE, SELFPAY ==
[2022-01-22 13:32] VITALS: BP 136/92; BMI 26.8
== END ==
PROVIDERS: PCP Nurse Practitioner Family; Visit Provider Internal Medicine Cardiovascular Disease
DX: I25.10 Atherosclerotic heart disease of native coronary artery without angina pectoris (principal); I10 Essential (primary) hypertension; I48.91 Unspecified atrial fibrillation; E78.2 Mixed hyperlipidemia
CPT/HCPCS: 99214

== ENCOUNTER → 2024-04-03 09:53 | Outpatient (BNVA) | payer MEDICARE, SELFPAY ==
[2022-01-22 13:32] VITALS: BP 136/92; BMI 26.8
== END ==
PROVIDERS: PCP Nurse Practitioner Family; Visit Provider Nurse Practitioner Family
DX: Z12.5 Encounter for screening for malignant neoplasm of prostate (principal); E78.2 Mixed hyperlipidemia; R73.9 Hyperglycemia, unspecified
CPT/HCPCS: 80053; 80061; 83036; 85025; G0103

== ENCOUNTER → 2024-07-10 09:50 | Outpatient (BNVA) | payer MEDICARE, SELFPAY ==
[2024-04-23 10:08] VITALS: BP 127/86; BMI 29.1
== END ==
PROVIDERS: PCP Nurse Practitioner Family; Visit Provider Internal Medicine Cardiovascular Disease
DX: I25.10 Atherosclerotic heart disease of native coronary artery without angina pectoris (principal); I10 Essential (primary) hypertension; I48.91 Unspecified atrial fibrillation; E78.2 Mixed hyperlipidemia
CPT/HCPCS: 99214

== ENCOUNTER → 2024-10-01 09:38 | Outpatient (BNVA) | payer MEDICARE, SELFPAY ==
[2024-04-23 10:08] VITALS: BP 127/86; BMI 29.1
== END ==
PROVIDERS: PCP Nurse Practitioner Family; Visit Provider Nurse Practitioner Family
DX: I10 Essential (primary) hypertension (principal); R73.9 Hyperglycemia, unspecified
CPT/HCPCS: 80053; 80061; 83036; 85025

== ENCOUNTER → 2025-01-08 09:50 | Outpatient (BNVA) | payer MEDICARE, SELFPAY ==
[2024-04-23 10:08] VITALS: BP 127/86; BMI 29.1
== END ==
PROVIDERS: PCP Nurse Practitioner Family; Visit Provider Nurse Practitioner Family
DX: I25.10 Atherosclerotic heart disease of native coronary artery without angina pectoris (principal); I10 Essential (primary) hypertension; I48.91 Unspecified atrial fibrillation; E78.2 Mixed hyperlipidemia
CPT/HCPCS: 99213

== ENCOUNTER → 2025-04-17 13:07 | Outpatient (BNVA) | payer MEDICARE, SELFPAY ==
[2024-04-23 10:08] VITALS: BP 127/86; BMI 29.1
== END ==
PROVIDERS: PCP Nurse Practitioner Family; Visit Provider Nurse Practitioner Family
DX: I10 Essential (primary) hypertension (principal); R73.9 Hyperglycemia, unspecified; Z83.79 Family history of other diseases of the digestive system; Z12.5 Encounter for screening for malignant neoplasm of prostate
CPT/HCPCS: 80053; 82784; 83036; 83516; 84443; 85025; G0103

== ENCOUNTER → 2025-07-24 13:18 | Outpatient (BNVA) | payer MEDICARE, SELFPAY ==
[2024-04-23 10:08] VITALS: BP 127/86; BMI 29.1
== END ==
PROVIDERS: PCP Nurse Practitioner Family; Visit Provider Internal Medicine Cardiovascular Disease
DX: I25.10 Atherosclerotic heart disease of native coronary artery without angina pectoris (principal); I10 Essential (primary) hypertension; I48.91 Unspecified atrial fibrillation; Z79.02 Long term (current) use of antithrombotics/antiplatelets; Z79.82 Long term (current) use of aspirin; E78.5 Hyperlipidemia, unspecified; Z98.61 Coronary angioplasty status; Z86.73 Personal history of transient ischemic attack (TIA), and cerebral infarction without residual deficits; I25.2 Old myocardial infarction
CPT/HCPCS: 99214

== ENCOUNTER → 2025-10-18 11:59 | Outpatient (BNVA) | payer MEDICARE, SELFPAY ==
[2025-10-18 09:05] VITALS: BP 127/86; BMI 29.1
== END ==
PROVIDERS: PCP Nurse Practitioner Family; Visit Provider Nurse Practitioner Psychiatric/Mental Health
DX: Z79.899 Other long term (current) drug therapy (principal)
CPT/HCPCS: 80061; 83036